=== PATIENT | female | born 1935 | race Caucasian/White ===

== ENCOUNTER 2019-07-26 11:21 | Emergency (ER) | payer MEDICARE, BC ==
--- NOTE | 2019-07-26 14:03 | EDM.PDOC ---
ED HPI GENERAL MEDICAL PROBLEM - General Chief Complaint: General Stated Complaint: fall Time Seen by Provider: 07/26/19 11:31 Source of Information: Reports: Patient History Limitations: Reports: No Limitations - History of Present Illness INITIAL COMMENTS - FREE TEXT/NARRATIVE: Patient fell while standing/conversing at chiropractor's office. No LOC. Did sustain laceration right upper lip. Early bruising around right chin/cheek and right hand and wrist. Denies other injuries. Did not hit scalp on any objects. Has history of intermittent lightheadedness every since she had inner ear infection a few years ago per daughter. This has led to similar falls previously. Able to ambulate. No change in vision. Jaw opens and closes well. Denies neck/chest/back/abdominal/pelvic pain. No limb pain except for discomfort in the bruised area of right hand/wrist. 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 No nausea/emesis. [place] like usual self before fall. No changes in meds recently. right wrist Pain Score (Numeric/FACES): 4 - Related Data Allergies Allergy/AdvReac Type Severity Reaction Status Date / Time No Known Allergies Allergy Verified 07/26/19 11:29 Home Meds: Home Meds Aspirin [Lite Coat Aspirin] 325 mg PO DAILY 11/03/13 [History] Ergocalciferol (Vitamin D2) [Vitamin D] 800 unit PO DAILY 11/03/13 [History] Fexofenadine HCl [Rosenda] 60 mg PO BID PRN 11/03/13 [History] Fluticasone Propionate [Flonase] 50 mcg NS DAILY 11/03/13 [History] Metoprolol Tartrate 25 mg PO BID 11/03/13 [History] Potassium Chloride [Klor-Con M10] 10 meq PO DAILY 11/03/13 [History] Sertraline [Zoloft] 100 mg PO QPM 11/03/13 [History] atorvaSTATin [Lipitor] 40 mg PO BEDTIME 11/03/13 [History] cloNIDine [Catapres] 0.1 mg PO BEDTIME 11/03/13 [History] hydroCHLOROthiazide [Hydrochlorothiazide] 25 mg PO DAILY 11/03/13 [History] Naproxen Sodium 220 mg PO DAILY PRN 02/12/15 [History] Dorzolamide/Timolol/Pf [Dorzolamide-Timolol 2%-0.5%] 1 each OP BEDTIME 07/26/19 [History] Lisinopril [Prinivil] 20 mg PO DAILY 07/26/19 [History] Rivaroxaban [Xarelto] 20 mg PO DAILY 07/26/19 [History] Past Medical History HEENT History: Reports: Glaucoma, Impaired Vision, Macular Degeneration Cardiovascular History: Reports: Blood Clots/VTE/DVT, High Cholesterol, Hypertension Musculoskeletal History: Reports: Osteoarthritis - Past Surgical History GI Surgical History: Reports: Appendectomy, Cholecystectomy Social & Family History - Tobacco Use Smoking Status *Q: Never Smoker Second Hand Smoke Exposure: No - Caffeine Use Caffeine Use: Reports: Coffee Other Caffeine Use: 2 cups in am - Recreational Drug Use Recreational Drug Use: No ED ROS GENERAL - Review of Systems Review Of Systems: ROS reveals no pertinent complaints other than HPI. ED EXAM, GENERAL - Physical Exam Exam: See Below Exam Limited By: No Limitations General Appearance: Alert, WD/WN, No Apparent Distress Eye Exam: Bilateral Eye: EOMI, PERRL Ears: Normal External Exam, Normal Canal Nose: No: Nasal Deformity, Nasal Swelling, Nasal Drainage Throat/Mouth: Normal Lips, Normal Teeth, Normal Voice, No Airway Compromise Head: Other (early bruising noted right cheek/right side of chin. No swelling. No signficant tenderness with palpation over face/scalp/neck) Neck: Normal Inspection, Supple, Non-Tender, Full Range of Motion. No: Tender Lateral, Tender Midline Respiratory/Chest: No Respiratory Distress, Lungs Clear, Normal Breath Sounds, No Accessory Muscle Use, Chest Non-Tender Cardiovascular: Regular Rate, Rhythm, Systolic Murmur Peripheral Pulses: 2+: Radial (L), Radial (R) GI/Abdominal: Normal Bowel Sounds, Soft, Non-Tender, No Distention (Female) Exam: Deferred Rectal (Female) Exam: Deferred Back Exam: No: CVA Tenderness (L), CVA Tenderness (R), Muscle Spasm, Paraspinal Tenderness, Vertebral Tenderness Extremities: Normal Capillary Refill, Other (bruising/tenderness noted medial right wrist and hand. Mild tenderness. Fingers/rest of hand and forearm non- tender. Able to move wrist well. ). No: Increased Warmth, Pallor, Redness Neurological: Alert, Oriented, Normal Cognition, No Motor/Sensory Deficits Psychiatric: Normal Affect, Normal Mood Skin Exam: Warm, Dry, Ecchymosis (right hand/wrist, right cheek and chin), Wound /Incision (laceration upper right lip) ED GENERAL MEDICAL PROCEDURES - Laceration/Wound Repair Right Mouth Lac/wound length in cm: 3 Appearance: Stellate, Clean Local Anesthesia - Lidocaine (Xylocaine): 1% Plain Local Anesthetic Volume: 2cc Skin Prep: Saline Exploration/Debridement/Repair: Wound Explored, In a Bloodless Field, Explored to Base, No Foreign Material Found, Multiple Flaps Aligned Suture Size: 3-0 # of Sutures: 6 Suture Type: Prolene, Interrupted Drain Placement: No Sterile Dressing Applied: None Tetanus Status Addressed: Other (unable to verify during visit. Later confirmed that it has been 10+year since last booster) Complications: No Course - Vital Signs Last Recorded V/S: Last Vital Signs Temp 36.0 C 07/26/19 11:22 Pulse 71 07/26/19 11:22 Resp 14 07/26/19 11:22 BP 151/88 H 07/26/19 11:22 Pulse Ox 99 07/26/19 11:22 - Orders/Labs/Meds Orders: Active Orders 24 hr Category Date Time Status EKG Documentation Completion [RC] ASDIRECTED Care 07/26/19 11:32 Active Hand 2V Rt [CR] Stat Exams 07/26/19 12:40 Ordered UA W/MICROSCOPIC [URIN] Stat Lab 07/26/19 11:32 Ordered Labs: Laboratory Tests 07/26/19 07/26/19 07/26/19 Range/Units 11:45 11:45 11:45 WBC 5.0 (4.0-10.2) K/uL RBC 4.05 (3.77-5.09) M/uL Hgb 12.3 (11.7-15.5) g/dL Hct 38.5 (34.0-46.0) % MCV 95.1 (84.0-98.0) fL MCH 30.4 (28.2-33.3) pg MCHC 31.9 (31.7-36.0) g/dL RDW 14.9 H (11.2-14.1) % Plt Count 155 (150-350) K/uL Neut % (Auto) 62.4 (45.0-80.0) % Lymph % (Auto) 21.9 (10.0-50.0) % [place] % (Auto) 12.1 (2.0-14.0) % Eos % (Auto) 2.6 (0.0-5.0) % Baso % (Auto) 1.0 (0.0-2.0) % Neut # (Auto) 3.10 (1.40-7.00) K/uL Lymph # (Auto) 1.09 (0.50-3.50) K/uL [place] # (Auto) 0.60 (0.00-1.00) K/uL Eos # (Auto) 0.13 (0.00-0.50) K/uL Baso # (Auto) 0.05 (0.00-0.20) K/uL PT 15.4 H (9.5-12.0) SEC INR 1.4 Sodium 143 (136-145) mmol/L Potassium 3.4 L (3.5-5.1) mmol/L Chloride 108 H (98-107) mmol/L Carbon Dioxide 27.9 (21.0-32.0) mmol/L BUN 36 H (7-18) mg/dL Creatinine 1.33 H (0.51-1.17) mg/dL Est Cr Clr Drug Dosing 28.95 mL/min Estimated GFR (MDRD) 38 mL/min Glucose 111 H (74-106) mg/dL Calcium 9.7 (8.5-10.1) mg/dL Magnesium 1.6 L (1.8-2.4) mg/dL Total Bilirubin 0.5 (0.2-1.0) mg/dL AST 22 (15-37) U/L ALT 22 (12-78) U/L Alkaline Phosphatase 77 (46-116) IU/L Total Protein 7.2 (6.4-8.2) g/dL Albumin 3.5 (3.4-5.0) g/dL Meds: Medications Discontinued Medications Generic Name Dose Route Start Last Admin Trade Name Freq PRN Reason Stop Dose Admin Lidocaine HCl 5 ml 07/26/19 13:31 Xylocaine-Mpf 1% INJECT 07/26/19 13:32 ONETIME ONE - Re-Assessments/Exams Free Text/Narrative Re-Assessment/Exam: Laceration repaired. Wound care reviewed. No obvious fracture of wrist/hand noted on xray. Precautions reviewed. Patient is anticoagulated but it is not felt that an acute CT of the head is indicated at this time. Low Mag noted. Patient said she normally takes magnesium but has been out of it for around a month. Advised to restart immediately and have level rechecked in one month. Patient uncertain of tetanus status. Unable to confirm that it has been over 10 years since last booster. Today's wound not considered a tetanus risk, however patient was called and advised to have tetanus updated with primary provider. Departure - Departure Time of Disposition: 14:01 Disposition: Home, Self-Care 01 Condition: Good Clinical Impression: Hypomagnesemia Fall Qualifiers: Encounter type: initial encounter Qualified Code(s): W19.XXXA - Unspecified fall, initial encounter Contusion of face Qualifiers: Encounter type: initial encounter Qualified Code(s): S00.83XA - Contusion of other part of head, initial encounter Lip laceration Qualifiers: Encounter type: initial encounter Qualified Code(s): S01.511A - Laceration without foreign body of lip, initial encounter Contusion of right hand Qualifiers: Encounter type: initial encounter Qualified Code(s): S60.221A - Contusion of right hand, initial encounter - Discharge Information *PRESCRIPTION DRUG MONITORING PROGRAM REVIEWED*: Not Applicable *COPY OF PRESCRIPTION DRUG MONITORING REPORT IN PATIENT MARTÍNEZ: Not Applicable Instructions: Laceration Care, Adult, [id number] Referrals: Ross Corado PA [Primary Care Provider] - Forms: ED Department Discharge Additional Instructions: Keep lip laceration area clean. Can soak area with normal saline/gauze several times a day to help keep area clean. Sutures out in one week. Observe for changes. Follow up as needed if new problems develop/worsen. Restart Magnesium supplements rangel - My Orders Last 24 Hours: My Active Orders 07/26/19 11:32 EKG Documentation Completion [RC] ASDIRECTED UA W/MICROSCOPIC [URIN] Stat 07/26/19 12:40 Hand 2V Rt [CR] Stat - Assessment/Plan Last 24 Hours: My Active Orders 07/26/19 11:32 EKG Documentation Completion [RC] ASDIRECTED UA W/MICROSCOPIC [URIN] Stat 07/26/19 12:40 Hand 2V Rt [CR] Stat
[2019-07-26 17:39] VITALS: BP 133/73; PULSE 58
== END 2019-07-26 14:20 | disposition home or self-care (01) ==
LOC: LL.ED 11:21
DX: S01.511A Laceration without foreign body of lip, initial encounter (principal); S60.221A Contusion of right hand, initial encounter; S60.211A Contusion of right wrist, initial encounter; E83.42 Hypomagnesemia; I10 Essential (primary) hypertension; M19.90 Unspecified osteoarthritis, unspecified site; Z90.49 Acquired absence of other specified parts of digestive tract; Z79.899 Other long term (current) drug therapy; Z79.82 Long term (current) use of aspirin; W19.XXXA Unspecified fall, initial encounter
CPT/HCPCS: 12013; 36415; 40830; 73120-RT; 80053; 83735; 85025; 85610; 93005; 99283; 99284-25; J2001

== ENCOUNTER 2019-08-18 08:36 | Emergency (ER) | payer MEDICARE, BC ==
[2019-08-18 09:01] VITALS: BP 130/61; PULSE 68
--- NOTE | 2019-08-18 09:25 | EDM.PDOC ---
ED HPI GENERAL MEDICAL PROBLEM - General Chief Complaint: General Stated Complaint: bleeding in mouth Time Seen by Provider: 08/18/19 09:05 Source of Information: Reports: Patient History Limitations: Reports: No Limitations - History of Present Illness INITIAL COMMENTS - FREE TEXT/NARRATIVE: Patient concerned due to bleeding gums in left upper tooth area. Started this morning. On day 3 of Cipro to treat UTI. Failed Macrobid. No other changes. Feels well otherwise. Also noted to be on Xarelto. - Related Data Allergies Allergy/AdvReac Type Severity Reaction Status Date / Time No Known Allergies Allergy Verified 08/18/19 08:37 Home Meds: Home Meds Ergocalciferol (Vitamin D2) [Vitamin D] 800 unit PO DAILY 11/03/13 [History] Fexofenadine HCl [Rosenda] 60 mg PO BID PRN 11/03/13 [History] Fluticasone Propionate [Flonase] 50 mcg NS DAILY 11/03/13 [History] Metoprolol Tartrate 25 mg PO BID 11/03/13 [History] Potassium Chloride [Klor-Con M10] 10 meq PO DAILY 11/03/13 [History] Sertraline [Zoloft] 100 mg PO QPM 11/03/13 [History] atorvaSTATin [Lipitor] 40 mg PO BEDTIME 11/03/13 [History] cloNIDine [Catapres] 0.1 mg PO BEDTIME 11/03/13 [History] hydroCHLOROthiazide [Hydrochlorothiazide] 25 mg PO DAILY 11/03/13 [History] Naproxen Sodium 220 mg PO DAILY PRN 02/12/15 [History] Lisinopril [Prinivil] 20 mg PO DAILY 07/26/19 [History] Rivaroxaban [Xarelto] 20 mg PO DAILY 07/26/19 [History] Calcium Carbonate [Tums Extra Strength] 1 tab PO BID 08/18/19 [History] Ciprofloxacin [Ciprofloxacin HCl] 250 mg PO BID 08/18/19 [History] Latanoprost/Pf [Latanoprost 0.005% Eye Drop] 1 drop EYEBOTH BEDTIME 08/18/19 [ History] Magnesium 250 mg PO DAILY 08/18/19 [History] Sodium Chloride [Deep Sea] 2 spray NASBOTH ASDIRECTED PRN 08/18/19 [History] Travoprost [Travatan Z] 1 drop EYEBOTH BEDTIME 08/18/19 [History] Past Medical History HEENT History: Reports: Glaucoma, Impaired Vision, Macular Degeneration Cardiovascular History: Reports: Blood Clots/VTE/DVT, High Cholesterol, Hypertension 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 ED EXAM, GENERAL - Physical Exam Exam: See Below Exam Limited By: No Limitations General Appearance: Alert, WD/WN, No Apparent Distress Eye Exam: Bilateral Eye: EOMI Nose: No: Nasal Deformity, Nasal Swelling, Nasal Drainage Throat/Mouth: Other (noted to have oozing of small amounts blood around gumline upper teeth on left) Head: Atraumatic, Normocephalic. No: Facial Swelling, Facial Tenderness, Sinus Tenderness Neck: Supple, Non-Tender Respiratory/Chest: No Respiratory Distress Extremities: Normal Capillary Refill Neurological: Alert, Oriented Psychiatric: Normal Affect, Normal Mood Skin Exam: Warm, Dry, Normal Color Course - Vital Signs Last Recorded V/S: Last Vital Signs Temp 36.0 C 08/18/19 08:36 Pulse 68 08/18/19 08:36 Resp 16 08/18/19 08:36 BP 130/61 08/18/19 08:36 Pulse Ox 97 08/18/19 08:36 - Re-Assessments/Exams Free Text/Narrative Re-Assessment/Exam: 08/18/19 09:48 Patient had recently performed labs that were reviewed. Calculated creatinine is 28. Review of [facility] shows that Xarelto is con Departure - Departure Time of Disposition: 09:25 Disposition: Home, Self-Care 01 Condition: Good Clinical Impression: Bleeding gums, Decreased creatinine clearance - Discharge Information *PRESCRIPTION DRUG MONITORING PROGRAM REVIEWED*: Not Applicable *COPY OF PRESCRIPTION DRUG MONITORING REPORT IN PATIENT MARTÍNEZ: Not Applicable Referrals: Ross Corado PA [Primary Care Provider] - Forms: ED Department Discharge Additional Instructions: As we discussed, we suspect that the combination of Cipro and Xarelto is causing your gums to bleed. You should hold your Xarelto until you are through with the Cipro. You also have a lower creatinine clearance. Looking at the guidelines, this particular combination of meds can lead to higher risk of side effects. Recommend that you get referral to anticoagulation clinic to be reviewed and have recommendations for best anticoagulation options for you. May stop Cipro if gum bleeding worsens.
== END 2019-08-18 09:40 | disposition home or self-care (01) ==
LOC: LL.ED 08:36
DX: K06.8 Other specified disorders of gingiva and edentulous alveolar ridge (principal); R94.4 Abnormal results of kidney function studies; H40.9 Unspecified glaucoma; E78.00 Pure hypercholesterolemia, unspecified; I10 Essential (primary) hypertension; Z79.01 Long term (current) use of anticoagulants; Z79.899 Other long term (current) drug therapy; Z86.718 Personal history of other venous thrombosis and embolism
CPT/HCPCS: 99282

== ENCOUNTER 2020-03-19 14:28 | Emergency (ER) | payer MEDICARE, BC ==
[2020-03-19] MEDS ORDERED: Sodium Chloride 0.9% 10 ML Syringe FLUSH PRN (14:38)
--- NOTE | 2020-03-19 14:38 | EDM.PDOC ---
ED HPI GENERAL MEDICAL PROBLEM - General Chief Complaint: General Stated Complaint: weakness, recent UTI Time Seen by Provider: 03/19/20 14:30 Source of Information: Reports: Patient, Family (DaughterKristin, by telephone) , Old Records ([facility] chart/EMR), Other ([facility] EMR) History Limitations: Reports: No Limitations - History of Present Illness INITIAL COMMENTS - FREE TEXT/NARRATIVE: The patient was brought to the emergency room via private automobile by her daughter, Kristin, and her son-in-law for evaluation of a 1-2 day history of nonspecific fatigue and weakness. She is a somewhat poor historian. The patient did see her regular provider, Ross Corado PA-C, at the [facility] in [place], yesterday and was diagnosed with a UTI and started on Levaquin. The patient denies any chest pain/pressure, heart flutter, dizziness, orthostasis, orthopnea, diaphoresis, paresthesias, recent decreased exercise tolerance, or any other anginal-type symptoms although some possible mild dyspnea with activity. Her main complaint today is severe progressive nonspecific generalized weakness with patient not being able to get off the toilet earlier this morning by herself and needed assistance from her son. No history of fall, injury, etc., however. No recent history of abdominal pain, heartburn, nausea, diarrhea, melena, gross hematochezia, or any food intolerance, including fatty foods, etc.. She denies any current gross hematuria, colic, or other UTI symptoms despite her recently diagnosed UTI as above. The patient also denies any recent fever, cough, wheezing, dyspnea, etc.. She denies any specific pain or discomfort. Onset: Gradual, Unknown/Unsure Onset Date: 03/18/20 Duration: Getting Worse Location: Reports: Generalized (Weakness) Quality: Reports: Same as Previous Episode, Other (No pain) Severity: Severe Improves with: Reports: None Worsens with: Reports: None Context: Reports: Other (As above). Denies: Sick Contact, Trauma Associated Symptoms: Reports: Shortness of Breath. 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 She did take her morning medications.) - Related Data Allergies Allergy/AdvReac Type Severity Reaction Status Date / Time No Known Allergies Allergy Verified 03/19/20 14:31 Home Meds: Home Meds Sertraline [Zoloft] 100 mg PO QPM 11/03/13 [History] atorvaSTATin [Lipitor] 40 mg PO BEDTIME 11/03/13 [History] cloNIDine [Catapres] 0.1 mg PO BEDTIME 11/03/13 [History] lisinopriL [Prinivil] 20 mg PO DAILY 07/26/19 [History] Calcium Carbonate [Tums Extra Strength] 1 tab PO BID PRN 08/18/19 [History] Latanoprost/Pf [Latanoprost 0.005% Eye Drop] 1 drop EYELF BEDTIME 08/18/19 [ History] Magnesium 250 mg PO DAILY 08/18/19 [History] Apixaban [Eliquis] 2.5 mg PO BID 03/19/20 [History] Cholecalciferol (Vitamin D3) [Vitamin D3] 800 unit PO DAILY 03/19/20 [History] Dorzolamide HCl/Timolol Maleat [Dorzolamide-Timolol Eye Drops] 1 drop EYELF BID 03/19/20 [History] Fluticasone Propionate [Flonase] 2 spray NASBOTH DAILY 03/19/20 [History] Levothyroxine 25 mcg PO DAILY 03/19/20 [History] Sodium Chloride [Deep Sea] 2 sprays NASBOTH ASDIRECTED PRN 03/19/20 [History] Travoprost [Travatan Z] 1 drop EYELF BEDTIME 03/19/20 [History] levoFLOXacin [Levaquin] 500 mg PO DAILY 03/19/20 [History] Past Medical History HEENT History: Reports: Allergic Rhinitis, Cataract, Glaucoma, Hard of Hearing, Impaired Vision, Macular Degeneration, Sinusitis, Other (See Below). 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 Cardiovascular History: Reports: Arrhythmia, Blood Clots/VTE/DVT, CAD, Cardiomyopathy, Heart Failure, High Cholesterol, Hypertension, AZ, PVD, Other ( See Below). 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 Syncopal episode during chiropractic treatment in 2019. Mild carotid occlusive disease and peripheral vascular disease. History of intermittent bradycardia with intermittent Mobitz type II block with planned pacemaker placement in April 2020. Incomplete right bundle branch block, PACs, PVCs, first-degree AV block, sinus arrhythmia and mild coronary artery disease with 40% stenosis of the right coronary artery by heart catheterization in 2002 as below. Apparent previous history of a non- STEMI without other cardiac procedures. Borderline occasional CHF with small pleural effusions and known grade 1 diastolic dysfunction. Right ventricular enlargement. Respiratory History: Reports: Bronchitis, Recurrent, COPD, Intubation, Previous , PE, Pneumonia, Recurrent, Pulmonary Fibrosis, Other (See Below). Denies: Asthma, Intubation, Difficult, Pneumothorax, TB Other Respiratory History: Large right PE above. Gastrointestinal History: Reports: Cholelithiasis, Colon Polyp, Diverticulosis, Gastritis, GERD, Hepatitis, Hiatal Hernia, PUD, Other (See Below) Other Gastrointestinal History: History of small colonic polyps of unknown type however evidence of mild colitis per biopsies at time of colonoscopy on . Moderate diverticulosis extending from the distal transverse colon to the sigmoid region. Genitourinary History: Reports: Chronic Renal Insuffiency, Urinary Incontinence , UTI, Recurrent. 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 Surgical menopause secondary to dysfunctional uterine bleeding. Benign vaginal polyp on 04/20/2000. Musculoskeletal History: Reports: Arthritis, Back Pain, Chronic, Fracture, Neck Pain, Chronic, Osteoarthritis, Osteoporosis Other Musculoskeletal History: Scoliosis. Left lateral malleolar fracture on 07/01. 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 Psychiatric History: Reports: Anxiety, Depression Endocrine/Metabolic History: Reports: Hypokalemia, Hypomagnesemia, Hypothyroidism, Other (See Below) Other Endocrine/Metabolic History: Angel's disease. Previous hyperglycemia. Hematologic History: Reports: Blood Transfusion(s), Other (See Below) Other Hematologic History: Chronic leukopenia. Blood transfusion at time of hysterectomy. Dermatologic History: Reports: Other (See Below) Other Dermatologic History: Facial actinic keratosis diagnosed on 01/05/94. - Infectious Disease History Infectious Disease History: Reports: Hepatitis A (Probable hepatitis A at age 10.) - Past Surgical History HEENT Surgical History: Reports: Cataract Surgery, Eye Surgery, Laser Surgery, Other (See Below) Other HEENT Surgeries/Procedures: Bilateral laser treatments of the eye in about June 1999. Right cataract extraction on 01/15/02 with left cataract extraction on . YAG laser posterior capsule treatment bilaterally on 13/04. Right eye shunt placement initially on 01/08/20 with revision on 01/22/20 secondary to her glaucoma. GI Surgical History: Reports: Appendectomy, Cholecystectomy, Colonoscopy, EGD, Other (See Below) Other GI Surgeries/Procedures: Last EGD and colonoscopy on 11/01/07 with similar previous evaluations on 07/10/03 with polypectomies 2 in 2002 as above. Additional colonoscopy on 05/31/04. Incidental appendectomy at time of hysterectomy as below at age 33. Female Surgical History: Reports: Hysterectomy, Salpingo-Oophorectomy, Other (See Below) Other Female Surgeries/Procedures: Partial hysterectomy with unilateral salpingo-oophorectomy and concomitant incidental appendectomy. Dysfunctional uterine bleeding at about age 33. Dermatological Surgical History: Reports: Other (See Below) Other Dermatological Surgeries/Procedures: Excision of actinic keratosis from the right facial region on 01/05/94. - Past Imaging History Past Imaging History: Reports: Angiography (Pulmonary angiogram with thrombectomy on 11/08/13 and 11/09/13 as above. Heart Catheterization on 06/16/03 with findings as above.), Cardiac Echo (Last on 08/06/19 with ejection fraction of 5560 percent with findings as above. Previous evaluations on 11/08/13 and 09/06/99.), Carotid US (Multiple previous evaluations last on 08/06/19.), CAT Scan ( Positive CTA of the chest on 11/08/[address] of the head on 03/15/99.), DEXA Scan (Multiple previous DEXA scans last on 05/10/11.), Holter Monitor (Last 48 hour Holter monitor study on 11/27/19 with results as above and previous evaluation on 09/01/99.), Mammogram (Last on 05/22/14.), PFT (07/01/03), Stress Testing (Dobutamine Cardiolite stress test on 06/08/07 on 06/08/07 with ejection fraction of 71%. Cardiolite stress test negative on 05/22/03.), Ultrasound ( Abdominal aortic ultrasound on 05/05/06.), Venous Doppler (Lower extremities on 08/12 positive for right popliteal and peroneal DVT.) Social & Family History - Family History Cardiac: Reports: Bypass, CAD, Hypertension, AZ, Other (See Below) Other Cardiac Family History: Brothers 2 with AZ and CABG is in their 60s with one of these brothers dying from an AZ at age 82. Brother with CHF and renal failure. Brother with possible cardiac aneurysm. Son with fatal AZ at age 52 secondary to severe multivessel disease. Brother with hyperlipidemia. Respiratory: Reports: Asthma, Other (See Below) Other Respiratory Family Hisory: Maternal aunt with asthma. : Reports: Renal Disease/Insufficiency, Other (See Below) Other Family History: Brother with renal failure as above. Musculoskeletal: Reports: Arthritis, Osteoarthritis, Other (See Below) Other Musculoskeletal Family History: Osteoarthritis in father and brother. Neurological: Reports: Alzheimers Disease, CVA, Dementia, Parkinson's, Other ( See Below) Other Neurological Family History: Brother with embolic CVA in his 60s. Mother with possible fatal CVA in her 70s. Brother with organic brain syndrome and Parkinson's disease. Endocrine/Metabolic: Reports: Diabetes, type II, IDDM, Other (See Below) Other Endocrine/Metabolic Family History: Brother with IDDM. Oncologic: Reports: Leukemia, Renal, Other (See Below) Other Oncologic Family History: Maternal aunts 2 with fatal unknown type of cancer in their 70s. Brother with renal cancer fatal in his 60s. Another brother with fatal leukemia at age 79. 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 ED EXAM, GENERAL - Physical Exam Exam: See Below Exam Limited By: No Limitations General Appearance: Alert, WD/WN, No Apparent Distress Eye Exam: Right Eye: Conjunctival Injection (Mild right lateral subconjunctival hemorrhage), Left Eye: Vision Changes (Near left eye blindness by history with patient wearing glasses), Bilateral Eye: EOMI, PERRL Ears: Normal External Exam, Normal Canal, Normal TMs, Hearing Loss (Mild bilateral presbycusis) Nose: Normal Inspection, Normal Mucosa, No Blood Throat/Mouth: Normal Inspection, Normal Lips, Normal Teeth, Normal Gums, Normal Oropharynx, Normal Voice, No Airway Compromise. No: Dysphagia, Perioral Cyanosis Head: Atraumatic, Normocephalic. No: Facial Swelling, Facial Tenderness, Sinus Tenderness Neck: Supple, Non-Tender, Full Range of Motion, Carotid Bruit (Mild bilateral carotid bruits). No: Lymphadenopathy (L), Lymphadenopathy (R), Thyromegaly Respiratory/Chest: No Respiratory Distress, No Accessory Muscle Use, Chest Non- Tender, Rales (Mild bilateral basilar rales). No: Pleural Rub, Retractions Cardiovascular: Normal Peripheral Pulses, Regular Rate, Rhythm, No Edema, No Gallop, No JVD, No Murmur, No Rub. No: Gallop/S3, Gallop/S4, Extra Beats (At time of exam), Friction Rub Peripheral Pulses: 2+: Radial (L), Radial (R), Dorsalis Pedis (L), Dorsalis Pedis (R) GI/Abdominal: Normal Bowel Sounds, Soft, Non-Tender, No Organomegaly, No Distention, No Abnormal Bruit, No Mass, Pelvis Stable. No: Guarding (Female) Exam: Deferred Rectal (Female) Exam: Deferred Back Exam: Full Range of Motion, CVA Tenderness (L), CVA Tenderness (R), Other ( Scoliosismild). No: Muscle Spasm, Paraspinal Tenderness, Vertebral Tenderness Extremities: Normal Inspection, Normal Range of Motion, Non-Tender, No Pedal Edema, Normal Capillary Refill. No: Alysa's Sign Neurological: Alert, Oriented, CN II-XII Intact, Normal Cognition, Normal Gait, Normal Reflexes (Negative Babinski's), No Motor/Sensory Deficits, Other ( Moderate nonspecific generalized weakness) Psychiatric: Normal Affect, Normal Mood Skin Exam: Warm, Dry, Intact, Normal Color, No Rash. No: Diaphoretic, Ecchymosis, Petechiae, Wound/Incision Lymphatic: No Adenopathy EKG INTERPRETATION EKG Date: 03/19/20 Time: 15:43 Rhythm: Other (PVCs) Rate (Beats/Min): 66 [place]: Normal (Left) P-Wave: Present (Small P waves noted, mildly biphasic) QRS: Normal (0.07 seconds) ST-T: Normal QT: Normal VA/PQ Interval: 0.25 seconds representing a first degree AV block with extreme poor R-wave progression in the anterior leads. Comparison: No Change (07/26/19) EKG Interpretation Comments: 1. No acute ischemic changes 2. First-degree AV block 3. PVCs Course - Vital Signs Last Recorded V/S: Last Vital Signs Temp 36.1 C 03/19/20 16:00 Pulse 81 03/19/20 16:29 Resp 20 03/19/20 16:29 BP 198/115 H 03/19/20 16:50 Pulse Ox 94 L 03/19/20 16:29 Vital Signs - 24 hr 03/19/20 03/19/20 03/19/20 14:30 14:35 14:39 Temperature [ 36.6 C 36.2 C Temporal] Pulse, 80 74 Peripheral [ Right Pulse Oximetry] Respiratory 20 20 Rate Blood Pressure Blood Pressure 192/93 H 183/87 H [Left Upper Arm ] O2 Sat by Pulse 95 93 L Oximetry O2 Sat by Pulse 95 Oximetry [Room Air] 03/19/20 03/19/20 03/19/20 14:54 15:08 15:23 Temperature [ 36.0 C L Temporal] Pulse, 68 67 76 Peripheral [ Right Pulse Oximetry] Respiratory 20 18 20 Rate Blood Pressure Blood Pressure 184/80 H 188/81 H 209/81 H [Left Upper Arm ] O2 Sat by Pulse 94 L 95 95 Oximetry O2 Sat by Pulse Oximetry [Room Air] 03/19/20 03/19/20 03/19/20 15:48 16:00 16:05 Temperature [ 36.1 C Temporal] Pulse, 64 69 Peripheral [ Right Pulse Oximetry] Respiratory 18 20 Rate Blood Pressure 229/87 H Blood Pressure 190/69 H 229/87 H [Left Upper Arm ] O2 Sat by Pulse 95 95 Oximetry O2 Sat by Pulse Oximetry [Room Air] 03/19/20 03/19/20 03/19/20 16:12 16:15 16:19 Temperature [ Temporal] Pulse, 82 110 H Peripheral [ Right Pulse Oximetry] Respiratory 20 22 H Rate Blood Pressure 189/84 H Blood Pressure 193/89 H 189/96 H [Left Upper Arm ] O2 Sat by Pulse 95 94 L Oximetry O2 Sat by Pulse Oximetry [Room Air] 03/19/20 03/19/20 16:29 16:50 Temperature [ Temporal] Pulse, 81 Peripheral [ Right Pulse Oximetry] Respiratory 20 Rate Blood Pressure 198/115 H Blood Pressure 182/84 H [Left Upper Arm ] O2 Sat by Pulse 94 L Oximetry O2 Sat by Pulse Oximetry [Room Air] - Orders/Labs/Meds Orders: Active Orders 24 hr Category Date Time Status Cardiac Monitoring [RC] CONTINUOUS Care 03/19/20 14:39 Active EKG Documentation Completion [RC] ASDIRECTED Care 03/19/20 15:42 Active Oxygen Therapy, ED [RC] PRN Care 03/19/20 14:39 Active Peripheral IV Care [RC] . DIRECTED Care 03/19/20 14:39 Active Pulse Oximetry [RC] CONTINUOUS Care 03/19/20 14:39 Active Up With Assistance [RC] ASDIRECTED Care 03/19/20 14:39 Active Nothing Per Oral Diet [DIET] Diet 03/19/20 Breakfast Active Chest 1V Frontal [CR] Stat Exams 03/19/20 14:55 Taken Chest 2V [CR] Stat Exams 03/19/20 14:39 Stop Req Chest 2V [CR] Stat Exams 03/19/20 14:39 Stop Req CULTURE URINE [RM] Routine Lab 03/19/20 15:33 Received Nitroglycerin [Nitrostat] Med 03/19/20 15:59 Stat 0.4 mg SL ONETIME STA Nitroglycerin [Nitrostat] Med 03/19/20 16:43 Stat 0.4 mg SL ONETIME STA Nitroglycerin [Nitrostat] Med 03/19/20 16:11 Active 0.4 mg SL Q5M PRN Sodium Chloride 0.9% [Saline Flush] Med 03/19/20 14:38 Active 10 ml FLUSH ASDIRECTED PRN Obtain Past Medical Record [OM.PC] Stat Oth 03/19/20 14:39 Active Peripheral IV Insertion Adult [OM.PC] Stat Oth 03/19/20 14:39 Ordered Resuscitation Status Routine Resus Stat 03/19/20 14:38 Ordered Medication Orders Nitroglycerin (Nitrostat) 0.4 mg SL ONETIME STA Stop: 03/20/20 16:00 Last Admin: 03/19/20 16:05 Dose: 0.4 mg Nitroglycerin (Nitrostat) 0.4 mg SL Q5M PRN PRN Reason: Chest Pain Stop: 03/20/20 16:11 Last Admin: 03/19/20 16:15 Dose: 0.4 mg Nitroglycerin (Nitrostat) 0.4 mg SL ONETIME STA Stop: 03/20/20 16:44 Last Admin: 03/19/20 16:50 Dose: 0.4 mg Sodium Chloride (Saline Flush) 10 ml FLUSH ASDIRECTED PRN PRN Reason: Keep Vein Open Labs: Laboratory Tests 03/19/20 03/19/20 03/19/20 Range/Units 14:49 14:49 14:49 WBC 5.5 (4.0-10.2) K/uL RBC 4.14 (3.77-5.09) M/uL Hgb 12.4 (11.7-15.5) g/dL Hct 38.5 (34.0-46.0) % MCV 93.0 (84.0-98.0) fL MCH 30.0 (28.2-33.3) pg MCHC 32.2 (31.7-36.0) g/dL RDW 14.8 H (11.2-14.1) % Plt Count 145 L (150-350) K/uL Neut % (Auto) 60.7 (45.0-80.0) % Lymph % (Auto) 23.8 (10.0-50.0) % [place] % (Auto) 14.4 H (2.0-14.0) % Eos % (Auto) 0.9 (0.0-5.0) % Baso % (Auto) 0.2 (0.0-2.0) % Neut # (Auto) 3.34 (1.40-7.00) K/uL Lymph # (Auto) 1.31 (0.50-3.50) K/uL [place] # (Auto) 0.79 (0.00-1.00) K/uL Eos # (Auto) 0.05 (0.00-0.50) K/uL Baso # (Auto) 0.01 (0.00-0.20) K/uL PT 12.0 (9.5-12.0) SEC INR 1.2 APTT 27.6 (24.5-32.8) SEC D-Dimer, Quantitative (0-400) ng/mL Sodium 144 (136-145) mmol/L Potassium 2.4 L* (3.5-5.1) mmol/L Chloride 105 (98-107) mmol/L Carbon Dioxide 28.7 (21.0-32.0) mmol/L BUN 16 (7-18) mg/dL Creatinine 0.92 (0.51-1.17) mg/dL Est Cr Clr Drug Dosing 43.47 mL/min Estimated GFR (MDRD) 58 mL/min Glucose 91 (74-106) mg/dL Lactic Acid (0.4-2.0) mmol/L Calcium 9.2 (8.5-10.1) mg/dL Magnesium 1.2 L (1.8-2.4) mg/dL Total Bilirubin 0.8 (0.2-1.0) mg/dL AST 24 (15-37) U/L ALT 16 (12-78) U/L Alkaline Phosphatase 90 (46-116) IU/L Creatine Kinase 54 (26-308) U/L Creatine Kinase Index 1.7 (0.0-2.5) % CK-MB (CK-2) 0.90 (0.00-3.60) ng/mL Troponin I 0.264 H* (0.000-0.056) ng/mL NT-Pro-B Natriuret Pep 1325 H (0-125) pg/mL Total Protein 6.3 L (6.4-8.2) g/dL Albumin 3.2 L (3.4-5.0) g/dL TSH, Ultra Sensitive 2.379 (0.358-3.740) mIU/mL Specimen Type Urine Color Urine Appearance Urine pH (5.0-9.0) Ur Specific [place] (1.005-1.030) Urine Protein (NEGATIVE) mg/dL Urine Glucose (UA) (NEGATIVE) mg/dL Urine Ketones (NEGATIVE) mg/dL Urine Occult Blood (NEGATIVE) Urine Nitrite (NEGATIVE) Urine Bilirubin (NEGATIVE) Urine Urobilinogen (0.2-1.0) E.U./dL Ur Leukocyte Esterase (NEGATIVE) Urine RBC /HPF Urine WBC /HPF Ur Epithelial Cells /LPF Urine Bacteria (NONE TO FEW) /HPF Urinalysis Comment 03/19/20 03/19/20 03/19/20 Range/Units 14:49 14:49 15:33 WBC (4.0-10.2) K/uL RBC (3.77-5.09) M/uL Hgb (11.7-15.5) g/dL Hct (34.0-46.0) % MCV (84.0-98.0) fL MCH (28.2-33.3) pg MCHC (31.7-36.0) g/dL RDW (11.2-14.1) % Plt Count (150-350) K/uL Neut % (Auto) (45.0-80.0) % Lymph % (Auto) (10.0-50.0) % [place] % (Auto) (2.0-14.0) % Eos % (Auto) (0.0-5.0) % Baso % (Auto) (0.0-2.0) % Neut # (Auto) (1.40-7.00) K/uL Lymph # (Auto) (0.50-3.50) K/uL [place] # (Auto) (0.00-1.00) K/uL Eos # (Auto) (0.00-0.50) K/uL Baso # (Auto) (0.00-0.20) K/uL PT (9.5-12.0) SEC INR APTT (24.5-32.8) SEC D-Dimer, Quantitative < 100 (0-400) ng/mL Sodium (136-145) mmol/L Potassium (3.5-5.1) mmol/L Chloride (98-107) mmol/L Carbon Dioxide (21.0-32.0) mmol/L BUN (7-18) mg/dL Creatinine (0.51-1.17) mg/dL Est Cr Clr Drug Dosing mL/min Estimated GFR (MDRD) mL/min Glucose (74-106) mg/dL Lactic Acid 1.4 (0.4-2.0) mmol/L Calcium (8.5-10.1) mg/dL Magnesium (1.8-2.4) mg/dL Total Bilirubin (0.2-1.0) mg/dL AST (15-37) U/L ALT (12-78) U/L Alkaline Phosphatase (46-116) IU/L Creatine Kinase (26-308) U/L Creatine Kinase Index (0.0-2.5) % CK-MB (CK-2) (0.00-3.60) ng/mL Troponin I (0.000-0.056) ng/mL NT-Pro-B Natriuret Pep (0-125) pg/mL Total Protein (6.4-8.2) g/dL Albumin (3.4-5.0) g/dL TSH, Ultra Sensitive (0.358-3.740) mIU/mL Specimen Type [place] Urine Color Yellow Urine Appearance Clear Urine pH 7.0 (5.0-9.0) Ur Specific [place] 1.025 (1.005-1.030) Urine Protein Trace H (NEGATIVE) mg/dL Urine Glucose (UA) Negative (NEGATIVE) mg/dL Urine Ketones Negative (NEGATIVE) mg/dL Urine Occult Blood Moderate H (NEGATIVE) Urine Nitrite Negative (NEGATIVE) Urine Bilirubin Small H (NEGATIVE) Urine Urobilinogen 0.2 (0.2-1.0) E.U./dL Ur Leukocyte Esterase Trace H (NEGATIVE) Urine RBC 0-5 /HPF Urine WBC 5-10 H /HPF Ur Epithelial Cells Few /LPF Urine Bacteria Moderate H (NONE TO FEW) /HPF Urinalysis Comment Urine specimen also set up for culture and sensitivity. Meds: Medications Generic Name Dose Route Start Last Admin Trade Name Freq PRN Reason Stop Dose Admin Nitroglycerin 0.4 mg 03/19/20 15:59 03/19/20 16:05 Nitrostat SL 03/20/20 16:00 0.4 mg ONETIME STA Administration Nitroglycerin 0.4 mg 03/19/20 16:11 03/19/20 16:15 Nitrostat SL 03/20/20 16:11 0.4 mg Q5M PRN Administration Chest Pain Nitroglycerin 0.4 mg 03/19/20 16:43 03/19/20 16:50 Nitrostat SL 03/20/20 16:44 0.4 mg ONETIME STA Administration Sodium Chloride 10 ml 03/19/20 14:38 Saline Flush FLUSH ASDIRECTED PRN Keep Vein Open Discontinued Medications Generic Name Dose Route Start Last Admin Trade Name Freq PRN Reason Stop Dose Admin Famotidine 40 mg 03/19/20 15:49 03/19/20 16:03 Pepcid IVPUSH 03/19/20 15:50 40 mg ONETIME ONE Administration Hydralazine HCl Confirm 03/19/20 17:09 Apresoline Administered 03/19/20 17:10 Dose 20 mg .ROUTE .STK-MED ONE Magnesium Sulfate 4 gm/ Premix 100 mls @ 200 mls/hr 03/19/20 16:11 03/19/20 16:25 IV 03/19/20 16:40 200 mls/hr ONETIME ONE Administration Nitroglycerin 0.5 gm 03/19/20 15:52 03/19/20 16:03 Nitro-Bid 2% TOP 03/19/20 15:53 0.5 gm ONETIME ONE Administration Potassium Chloride 40 meq 03/19/20 16:11 03/19/20 16:15 Klor-Con M20 PO 03/19/20 16:12 40 meq ONETIME ONE Administration - Radiology Interpretation Free Text/Narrative:: awake overnight monitor shows normal sinus rhythm with heart rate in the 60s to 80s with only very occasional PACs and PVCs. Chest x-ray, portable, shows moderate COPD and pulmonary fibrotic changes with an additional new 1 cm in diameter possible right lower lobe pulmonary nodule of unknown character. No pneumothorax, pulmonary infiltrates, cardiomegaly, CHF , etc.. Mild aortic valve calcification. Departure - Departure Time of Disposition: 17:25 Disposition: DC/Tfer to Acute Hospital 02 Condition: Fair Clinical Impression: CHF (congestive heart failure), Hypertension, Hypokalemia, Hypomagnesemia, UTI (urinary tract infection), Peptic reflux disease, Pulmonary nodule, Renal insufficiency, Hypoalbuminemia, Coronary artery disease, Arrhythmia, COPD ( chronic obstructive pulmonary disease), Tobacco abuse counseling - Discharge Information *PRESCRIPTION DRUG MONITORING PROGRAM REVIEWED*: Not Applicable *COPY OF PRESCRIPTION DRUG MONITORING REPORT IN PATIENT MARTÍNEZ: Not Applicable Referrals: Ross Corado PA [Primary Care Provider] - Forms: ED Department Discharge, Interfacility Transfer EMTALA Sepsis Event Note - Focused Exam Vital Signs: Vital Signs Temp Pulse Resp BP BP Pulse Ox Pulse Ox 03/19/20 16:50 198/115 H 03/19/20 16:29 81 20 182/84 H 94 L 03/19/20 16:19 110 H 22 H 189/96 H 94 L 03/19/20 16:15 189/84 H 03/19/20 16:12 82 20 193/89 H 95 03/19/20 16:05 229/87 H 03/19/20 16:00 36.1 C 69 20 229/87 H 95 03/19/20 15:48 64 18 190/69 H 95 03/19/20 15:23 76 20 209/81 H 95 03/19/20 15:08 36.0 C L 67 18 188/81 H 95 03/19/20 14:54 68 20 184/80 H 94 L 03/19/20 14:39 95 03/19/20 14:35 36.2 C 74 20 183/87 H 93 L 03/19/20 14:30 36.6 C 80 20 192/93 H 95 Date Exam was Performed: 03/19/20 Time Exam was Performed: 17:45 - Problem List & Annotations (1) CHF (congestive heart failure) SNOMED Code(s): 57865092 Code(s): I50.9 - HEART FAILURE, UNSPECIFIED Status: Acute Priority: High Current Visit: Yes Annotation/Comment:: History of previous borderline CHF and grade 1 diastolic dysfunction with known mild to moderate right ventricular enlargement by previous echocardiograms as above. Note moderate troponin I elevation with no chest pain or anginal type symptoms. No ASA or Brilinta were given secondary to patient's current Eliquis therapy with chest pain protocol not initiated initially secondary to absence of anginal complaints. IV Lasix therapy was not initiated secondary to her significant hypokalemia with patient given 40 mEq of potassium chloride orally in the emergency room. Note additional significant hypomagnesemia as below. No EKG changes consistent with acute [place], although troponin I level is higher than we would expect with this degree of CHF, which is only mild by clinical exam and today's chest x-ray. Known previous coronary artery disease as above with no known previous cardiac procedures. Initial telephone consultation at 15:50 hours with the patient's daughter, Kristin, verifying the patient's FULL CODE STATUS and desire for further treatment and workup. Subsequent telephone consultation at 15:[address] Camargo, emergency room physician at [facility], who feels this patient should be a direct admission. Subsequent telephone consultation at 16:[address] Valencia, hospitalist at [facility], who does accept the patient for direct admission and further treatment and evaluation, with no further treatment recommendations given. Ambulance transfer by means of skin piler accompaniment. Her blood pressures continued to be somewhat elevated prior to transfer, however stable vital signs and physical exam at time of transfer. Note initiation of nitro-paste therapy and sublingual nitroglycerin 3 for better blood pressure control and as cardiac prophylaxis. Qualifiers: Heart failure type: combined systolic and diastolic Heart failure chronicity: acute on chronic Qualified Code(s): I50.43 - Acute on chronic combined systolic (congestive) and diastolic (congestive) heart failure (2) Coronary artery disease SNOMED Code(s): 47570823 Code(s): I25.10 - ATHSCL HEART DISEASE OF [place] CORONARY ARTERY W/O ANG PCTRS Status: Chronic Priority: High Current Visit: Yes Annotation/ Comment:: As above. Possible threatening [place]. Cardiology consultation, standard rule out [place] orders, etc. by accepting providers. Qualifiers: Coronary Disease-Associated Artery/Lesion type: [place] artery [place] vs. transplanted heart: [place] heart Associated angina: without angina Qualified Code(s): I25.10 - Atherosclerotic heart disease of [place] coronary artery without angina pectoris (3) Hypertension SNOMED Code(s): 49593895 Code(s): I10 - ESSENTIAL (PRIMARY) HYPERTENSION Status: Chronic Priority : High Current Visit: Yes Annotation/Comment:: As above. Patient denies any medication noncompliance. Note sublingual nitroglycerin, nitro paste therapy, and IV magnesium infusion initiated, which should be beneficial for her blood pressures. The paramedics were provided a total of 20 mg of hydralazine IV, which should be in 10 mg aliquots, if her hypertension worsens. 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 No neurological deficits during entire emergency room care in spite of the patient's distant history of previous CVA. Qualifiers: Hypertension type: essential hypertension Qualified Code(s): I10 - Essential (primary) hypertension (4) UTI (urinary tract infection) SNOMED Code(s): 99810750 Code(s): N39.0 - URINARY TRACT INFECTION, SITE NOT SPECIFIED Status: Chronic Priority: Medium Current Visit: Yes Onset Date: ~03/18/20 Annotation/Comment:: Current UTI diagnosed by primary provider yesterday as above. He did order an urine culture, which is still pending per review of records from [facility]. Note current Levaquin therapy. Additional QuikCath UA with culture and sensitivity were collected today. Qualifiers: Urinary tract infection type: acute cystitis Hematuria presence: without hematuria Qualified Code(s): N30.00 - Acute cystitis without hematuria (5) Hypomagnesemia SNOMED Code(s): 485479010 Code(s): E83.42 - HYPOMAGNESEMIA Status: Acute Priority: High Current Visit: Yes Onset Date: 03/19/20 Annotation/Comment:: History of hypomagnesia in the past with severe hypomagnesemia today. IV magnesium sulfate infusion initiated in the emergency room both for treatment of her decreased magnesium level and also for better blood pressure control. Transfusion was continued in route at time of transfer. (6) Hypokalemia SNOMED Code(s): 92001043 Code(s): E87.6 - HYPOKALEMIA Status: Acute Priority: High Current Visit : Yes Onset Date: 03/19/20 Annotation/Comment:: As above (7) Peptic reflux disease SNOMED Code(s): 025678742 Code(s): K21.9 - GASTRO-ESOPHAGEAL REFLUX DISEASE WITHOUT ESOPHAGITIS Status: Chronic Priority: Medium Current Visit: Yes Annotation/Comment:: As above. No GI complaints. High-dose IV Pepcid was given as GI prophylaxis. (8) Pulmonary nodule SNOMED Code(s): 119269414 Code(s): R91.1 - SOLITARY PULMONARY NODULE Status: Acute Priority: High Current Visit: Yes Onset Date: 03/19/20 Annotation/Comment:: Note newly diagnosed right lower lobe pulmonary nodule. Consider CT of the chest with contrast with patient having a distant history of a PE as above. Note negative d -dimer today. No previous tobacco use history, however current secondhand tobacco smoke exposure. (9) Renal insufficiency SNOMED Code(s): 123706385, 940245197 Code(s): N28.9 - DISORDER OF KIDNEY AND URETER, UNSPECIFIED Status: Chronic Priority: Medium Current Visit: Yes Annotation/Comment:: Continue to observe closely by accepting providers especially IV Lasix was initiated. (10) Hypoalbuminemia SNOMED Code(s): 963540847 Code(s): E88.09 - OTH DISORDERS OF PLASMA-PROTEIN METABOLISM, NEC Status: Acute Priority: Medium Current Visit: Yes Onset Date: 03/19/20 Annotation/Comment:: Observe for now. (11) Arrhythmia SNOMED Code(s): 974717466 Code(s): I49.9 - CARDIAC ARRHYTHMIA, UNSPECIFIED Status: Acute Priority: High Current Visit: Yes Annotation/Comment:: Note history of [place] type II second-degree AV block and PACs, PVCs, etc. as above. Observe closely by accepting providers with pacemaker apparently scheduled to be placed in April by patient history Qualifiers: Arrhythmia type: other cardiac arrhythmia Qualified Code(s): I49.8 - Other specified cardiac arrhythmias (12) COPD (chronic obstructive pulmonary disease) SNOMED Code(s): 76345570 Code(s): J44.9 - CHRONIC OBSTRUCTIVE PULMONARY DISEASE, UNSPECIFIED Status : Chronic Priority: Medium Current Visit: Yes Annotation/Comment:: No recent fever or bronchitic type symptoms. Qualifiers: COPD type: emphysema Emphysema type: panlobular Qualified Code(s): J43.1 - Panlobular emphysema (13) Tobacco abuse counseling SNOMED Code(s): 658861772, 475575539, 018861503 Code(s): Z71.6 - TOBACCO ABUSE COUNSELING Status: Chronic Priority: Medium Current Visit: Yes Annotation/Comment:: Tobacco exposure from her son. Tobacco cessation information to be provided by accepting providers at discharge. - Problem List Review Problem List Initiated/Reviewed/Updated: Yes - My Orders Last 24 Hours: My Active Orders 03/19/20 14:38 Sodium Chloride 0.9% [Saline Flush] 10 ml FLUSH ASDIRECTED PRN Resuscitation Status Routine 03/19/20 14:39 Cardiac Monitoring [RC] CONTINUOUS Oxygen Therapy, ED [RC] PRN Peripheral IV Care [RC] . DIRECTED Pulse Oximetry [RC] CONTINUOUS Up With Assistance [RC] ASDIRECTED Chest 2V [CR] Stat Chest 2V [CR] Stat Obtain Past Medical Record [OM.PC] Stat Peripheral IV Insertion Adult [OM.PC] Stat 03/19/20 14:55 Chest 1V Frontal [CR] Stat 03/19/20 15:33 CULTURE URINE [RM] Routine 03/19/20 15:42 EKG Documentation Completion [RC] ASDIRECTED 03/19/20 15:59 Nitroglycerin [Nitrostat] 0.4 mg SL ONETIME STA 03/19/20 16:11 Nitroglycerin [Nitrostat] 0.4 mg SL Q5M PRN 03/19/20 16:43 Nitroglycerin [Nitrostat] 0.4 mg SL ONETIME STA 03/19/20 Breakfast Nothing Per Oral Diet [DIET] - Assessment/Plan Last 24 Hours: My Active Orders 03/19/20 14:38 Sodium Chloride 0.9% [Saline Flush] 10 ml FLUSH ASDIRECTED PRN Resuscitation Status Routine 03/19/20 14:39 Cardiac Monitoring [RC] CONTINUOUS Oxygen Therapy, ED [RC] PRN Peripheral IV Care [RC] . DIRECTED Pulse Oximetry [RC] CONTINUOUS Up With Assistance [RC] ASDIRECTED Chest 2V [CR] Stat Chest 2V [CR] Stat Obtain Past Medical Record [OM.PC] Stat Peripheral IV Insertion Adult [OM.PC] Stat 03/19/20 14:55 Chest 1V Frontal [CR] Stat 03/19/20 15:33 CULTURE URINE [RM] Routine 03/19/20 15:42 EKG Documentation Completion [RC] ASDIRECTED 03/19/20 15:59 Nitroglycerin [Nitrostat] 0.4 mg SL ONETIME STA 03/19/20 16:11 Nitroglycerin [Nitrostat] 0.4 mg SL Q5M PRN 03/19/20 16:43 Nitroglycerin [Nitrostat] 0.4 mg SL ONETIME STA 03/19/20 Breakfast Nothing Per Oral Diet [DIET] Assessment:: As above Plan: As above. Extensive precautions were given to the patient and her daughter, who are in agreement with the treatment plan. Ambulance transfer with skin piler accompaniment.
[2020-03-19 15:16] LABS: PTT,PARTIAL THROMBOPLSTIN TIME 27.6 SEC (24.5-32.8)
[2020-03-19] MEDS: Nitroglycerin 2% Oint 1 GM UD Packet TOP ONE (16:03)
[2020-03-19] MEDS: Famotidine 20 MG/2 ML SDV IVPUSH ONE (16:03)
[2020-03-19] MEDS: Nitroglycerin 0.4 MG Tab.SL SL STA ×2 (16:05→16:50)
[2020-03-19] MEDS: Nitroglycerin 0.4 MG Tab.SL SL PRN (16:15)
[2020-03-19] MEDS: Potassium Chloride 20 MEQ Tab.ER PO ONE (16:15)
[2020-03-19] MEDS: Magnesium Sulfate/Water 4 GM in Premix Bag 1 BAG IV ONE (16:25)
[2020-03-19 16:30] VITALS: PULSE 81
[2020-03-19 16:51] VITALS: BP 198/115
[2020-03-19] MEDS ORDERED: hydrALAZINE 20 MG/ML SDV ONE (17:09)
== END 2020-03-19 17:45 ==
LOC: LL.ED 14:28
DX: E87.6 Hypokalemia (principal); E83.42 Hypomagnesemia; I13.0 Hypertensive heart and chronic kidney disease with heart failure and stage 1 through stage 4 chronic kidney disease, or unspecified chronic kidney disease; I50.9 Heart failure, unspecified; N39.0 Urinary tract infection, site not specified; K21.9 Gastro-esophageal reflux disease without esophagitis; R91.1 Solitary pulmonary nodule; N28.9 Disorder of kidney and ureter, unspecified; E88.09 Other disorders of plasma-protein metabolism, not elsewhere classified; I25.10 Atherosclerotic heart disease of native coronary artery without angina pectoris; J44.9 Chronic obstructive pulmonary disease, unspecified; M41.9 Scoliosis, unspecified; F41.9 Anxiety disorder, unspecified; F32.9 Major depressive disorder, single episode, unspecified; E78.00 Pure hypercholesterolemia, unspecified; I25.2 Old myocardial infarction; Z71.6 Tobacco abuse counseling; Z79.01 Long term (current) use of anticoagulants; Z79.899 Other long term (current) drug therapy; Z86.73 Personal history of transient ischemic attack (TIA), and cerebral infarction without residual deficits
CPT/HCPCS: 36415; 71045; 80053; 81001; 82550; 82553; 83605; 83735; 83880; 84443; 84484; 85025; 85379; 85610; 85730; 87086; 93005; 96365; 96375; 99285-25; A9270-GY; J3475; J3490

== ENCOUNTER 2021-06-24 19:41 | Inpatient (IN) | payer MEDICARE, BC ==
[2021-06-24] MEDS ORDERED: Ondansetron 4 MG/2 ML SDV IVPUSH ONE (20:07)
[2021-06-24] MEDS: Sodium Chloride 0.9% 10 ML Syringe FLUSH PRN (20:11)
[2021-06-24 20:25] LABS: PTT,PARTIAL THROMBOPLSTIN TIME 27.7 SEC (24.5-32.8)
--- NOTE | 2021-06-24 20:26 | EDM.PDOC ---
ED HPI GENERAL MEDICAL PROBLEM - General Chief Complaint: Cardiovascular Problem Stated Complaint: tacycardia Time Seen by Provider: 06/24/21 20:00 Source of Information: Reports: Patient, Family - History of Present Illness INITIAL COMMENTS - FREE TEXT/NARRATIVE: Berkley is an 85 y/o female who is brought to the ER by her family with a fever. She apparently had a fever at home of 101.6 when her daughter checked it. Yesterday she was trying to drink water and today she could not. Has an upset stomach and also noted loose, black stools. Patient just doesn't feel well and has many non-specific complaints. Right Shoulder Pain Score (Numeric/FACES): 6 - Related Data Allergies Allergy/AdvReac Type Severity Reaction Status Date / Time No Known Allergies Allergy Verified 03/19/20 14:31 Home Meds: Home Meds Sertraline [Zoloft] 10 mg PO QPM 11/03/13 [History] atorvaSTATin [Lipitor] 40 mg PO BEDTIME 11/03/13 [History] cloNIDine [Catapres] 0.1 mg PO BEDTIME 11/03/13 [History] lisinopriL [Prinivil] 20 mg PO BID 07/26/19 [History] Magnesium 250 mg PO DAILY 08/18/19 [History] Apixaban [Eliquis] 2.5 mg PO BID 03/19/20 [History] Dorzolamide HCl/Timolol Maleat [Dorzolamide-Timolol Eye Drops] 1 drop EYEBOTH BID 03/19/20 [History] Fluticasone Propionate [Flonase] 2 spray NASBOTH DAILY 03/19/20 [History] Levothyroxine 25 mcg PO DAILY 03/19/20 [History] Cholecalciferol (Vitamin D3) [Vitamin D] 50 mg PO DAILY 06/24/21 [History] Famotidine [Pepcid] 20 mg PO BEDTIME 06/24/21 [History] amLODIPine [Norvasc] 10 mg PO DAILY 06/24/21 [History] hydrALAZINE [Apresoline] 25 mg PO BID 06/24/21 [History] Past Medical History HEENT History: Reports: Allergic Rhinitis, Cataract, Glaucoma, Hard of Hearing, Impaired Vision, Macular Degeneration, Sinusitis, Other (See Below). 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 Cardiovascular History: Reports: Arrhythmia, Blood Clots/VTE/DVT, CAD, Cardiomyopathy, Heart Failure, High Cholesterol, Hypertension, AK, PVD, Other (See Below). 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 Syncopal episode during chiropractic treatment in 2019. Mild carotid occlusive disease and peripheral vascular disease. History of intermittent bradycardia with intermittent Mobitz type II block with planned pacemaker placement in April 2020. Incomplete right bundle branch block, PACs, PVCs, first-degree AV block, sinus arrhythmia and mild coronary artery disease with 40% stenosis of the right coronary artery by heart catheterization in 2002 as below. Apparent previous history of a non-STEMI without other cardiac procedures. Borderline occasional CHF with small pleural effusions and known grade 1 diastolic dysfunction. Right ventricular enlargement. Respiratory History: Reports: Bronchitis, Recurrent, COPD, Intubation, Previous, PE, Pneumonia, Recurrent, Pulmonary Fibrosis, Other (See Below). Denies: Asthma, Intubation, Difficult, Pneumothorax, TB Other Respiratory History: Large right PE above. Gastrointestinal History: Reports: Cholelithiasis, Colon Polyp, Diverticulosis, Gastritis, GERD, Hepatitis, Hiatal Hernia, PUD, Other (See Below) Other Gastrointestinal History: History of small colonic polyps of unknown type however evidence of mild colitis per biopsies at time of colonoscopy on 07/10/03. Moderate diverticulosis extending from the distal transverse colon to the sigmoid region. Genitourinary History: Reports: Chronic Renal Insuffiency, Urinary Incontinence, UTI, Recurrent. Denies: Retention, Urinary, STD TIRE TECHNICIAN History: Reports: Dysfunctional Uterine Bleeding, Fibroids, Other TIRE TECHNICIAN History: 1 premature delivery at about 7 months gestation otherwise Full term without complications during pregnancies or deliveries. Surgical menopause secondary to dysfunctional uterine bleeding. Benign vaginal polyp on 04/20/2000. Musculoskeletal History: Reports: Arthritis, Back Pain, Chronic, Fracture, Neck Pain, Chronic, Osteoarthritis, Osteoporosis Other Musculoskeletal History: Scoliosis. Left lateral malleolar fracture on 07/01/98. 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 Psychiatric History: Reports: Anxiety, Depression Endocrine/Metabolic History: Reports: Hypokalemia, Hypomagnesemia, Hypothyroidism, Other (See Below) Other Endocrine/Metabolic History: Angel's disease. Previous hyperglycemia. Hematologic History: Reports: Blood Transfusion(s), Other (See Below) Other Hematologic History: Chronic leukopenia. Blood transfusion at time of hysterectomy. Dermatologic History: Reports: Other (See Below) Other Dermatologic History: Facial actinic keratosis diagnosed on 01/05/94. - Infectious Disease History Infectious Disease History: Reports: Hepatitis A (Probable hepatitis A at age 10.) - Past Surgical History HEENT Surgical History: Reports: Cataract Surgery, Eye Surgery, Laser Surgery, Other (See Below) Other HEENT Surgeries/Procedures: Bilateral laser treatments of the eye in about June 1999. Right cataract extraction on 01/15/02 with left cataract extraction on . YAG laser posterior capsule treatment bilaterally on 12/14/05. Right eye shunt placement initially on 01/08/20 with revision on 01/22/20 secondary to her glaucoma. GI Surgical History: Reports: Appendectomy, Cholecystectomy, Colonoscopy, EGD, Other (See Below) Other GI Surgeries/Procedures: Last EGD and colonoscopy on 11/01/07 with similar previous evaluations on 07/10/03 with polypectomies 2 in 2002 as above. Additi onal colonoscopy on 05/31/04. Incidental appendectomy at time of hysterectomy as below at age 33. Female Surgical History: Reports: Hysterectomy, Salpingo-Oophorectomy, Other (See Below) Other Female Surgeries/Procedures: Partial hysterectomy with unilateral salpingo-oophorectomy and concomitant incidental appendectomy. Dysfunctional uterine bleeding at about age 33. Dermatological Surgical History: Reports: Other (See Below) Other Dermatological Surgeries/Procedures: Excision of actinic keratosis from the right facial region on 01/05/94. - Past Imaging History Past Imaging History: Reports: Angiography (Pulmonary angiogram with thrombectomy on 11/08/13 and 11/09/13 as above. Heart Catheterization on 06/16/03 with findings as above.), Cardiac Echo (Last on 08/06/19 with ejection fraction of 5560 percent with findings as above. Previous evaluations on 11/08/13 and 09/06/99.), Carotid US (Multiple previous evaluations last on 08/06/19.), CAT Scan (Positive CTA of the chest on 11/08/[address] of the head on 03/15/99.), DEXA Scan (Multiple previous DEXA scans last on 05/10/11.), Holter Monitor (Last 48 hour Holter monitor study on 11/27/19 with results as above and previous evaluation on 09/01/99.), Mammogram (Last on 05/22/14.), PFT (07/01/03), S tress Testing (Dobutamine Cardiolite stress test on 06/08/07 on 06/08/07 with ejection fraction of 71%. Cardiolite stress test negative on 05/22/03.), Ultrasound (Abdominal aortic ultrasound on 05/05/06.), Venous Doppler (Lower extremities on 11/08/13 positive for right popliteal and peroneal DVT.) Social & Family History - Family History Cardiac: Reports: Bypass, CAD, Hypertension, AK, Other (See Below) Other Cardiac Family History: Brothers 2 with AK and CABG is in their 60s with one of these brothers dying from an AK at age 82. Brother with CHF and renal failure. Brother with possible cardiac aneurysm. Son with fatal AK at age 52 secondary to severe multivessel disease. Brother with hyperlipidemia. Respiratory: Reports: Asthma, Other (See Below) Other Respiratory Family Hisory: Maternal aunt with asthma. : Reports: Renal Disease/Insufficiency, Other (See Below) Other Family History: Brother with renal failure as above. Musculoskeletal: Reports: Arthritis, Osteoarthritis, Other (See Below) Other Musculoskeletal Family History: Osteoarthritis in father and brother. Neurological: Reports: Alzheimers Disease, CVA, Dementia, Parkinson's, Other (See Below) Other Neurological Family History: Brother with embolic CVA in his 60s. Mother with possible fatal CVA in her 70s. Brother with organic brain syndrome and Parkinson's disease. Endocrine/Metabolic: Reports: Diabetes, type II, IDDM, Other (See Below) Other Endocrine/Metabolic Family History: Brother with IDDM. Oncologic: Reports: Leukemia, Renal, Other (See Below) Other Oncologic Family History: Maternal aunts 2 with fatal unknown type of cancer in their 70s. Brother with renal cancer fatal in his 60s. Another brother with fatal leukemia at age 79. 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64.) ED ROS GENERAL - Review of Systems Review Of Systems: See Below Constitutional: Reports: Fever, Chills, Malaise, Weakness, Decreased Appetite HEENT: Reports: No Symptoms Respiratory: Reports: No Symptoms Cardiovascular: Reports: No Symptoms Endocrine: Reports: No Symptoms GI/Abdominal: Reports: Black Stool, Diarrhea, Nausea : Reports: No Symptoms Musculoskeletal: Reports: No Symptoms Skin: Reports: No Symptoms Neurological: Reports: No Symptoms Psychiatric: Reports: No Symptoms Hematologic/Lymphatic: Reports: No Symptoms Immunologic: Reports: No Symptoms ED EXAM, GENERAL - Physical Exam Exam: See Below General Appearance: Alert, WD/WN (Elderly female on ER cart, appears to not feel well at all.) Eye Exam: Bilateral Eye: PERRL Ears: Normal External Exam, Normal Canal, Hearing Grossly Normal, Normal TMs Nose: Normal Inspection Throat/Mouth: Normal Lips, Other (Mucous membranes slightly dry) Head: Atraumatic, Normocephalic Neck: Normal Inspection, Supple, Non-Tender Respiratory/Chest: No Respiratory Distress, Lungs Clear, Chest Non-Tender Cardiovascular: Normal Peripheral Pulses, Regular Rate, Rhythm, Tachycardia GI/Abdominal: Normal Bowel Sounds, Soft (Female) Exam: Deferred Back Exam: Normal Inspection, Full Range of Motion Extremities: Normal Inspection, Normal Range of Motion, No Pedal Edema, Normal Capillary Refill Neurological: Alert, Oriented, CN II-XII Intact, Normal Reflexes Psychiatric: Normal Affect, Normal Mood Skin Exam: Dry, Intact, Normal Color, Increased Warmth Lymphatic: No Adenopathy #1 Interpretation EKG Date: 06/24/21 Time: 20:15 Rhythm: NSR Rate (Beats/Min): 95 [place]: Normal P-Wave: Enlarged QRS: Normal ST-T: Normal QT: Normal EKG Interpretation Comments: SR with 1st Degree AV Block Course - Vital Signs Text/Narrative:: 1999 The patient was seen by the INSTALLATION SPECIALIST. Labs, EKG, adn CXR were done. IV fluids started and she was given Zofran 4mg IVP. 2044 Labs reviewed: Note WBC=2.98, Ncjb=866; CMP Potassium=3.0, BUN=25, Fisheries Enforcement Officer=1.31, Lxtmxbq=885, Mag=1.5; Troponin I=95, PT/INR=0.9; CRP=11.7, Lactic Acid=4.3; Blood Cx pending; COVID=negative; SFOB=negative. Differentials include NSTEMI, Lacic Acidosis due to dehydration or possible infection not yet identified or apparent on exam. Also electrolyte imbalance. Discussed with patient who desires transfer to [facility]. She is a full code. Will cover her with Ceftriaxone 1gm IVP for the elevated lactate, but suspect it may more fluid related. [address] contacted for transfer, no beds available. Patient placed on waiting list for bed. Will plan Observation admit here in [place] until we can get the patient sent out. Will rehydrate her, replace electrolytes, do serial troponin and lactate levels. Will plan to replace Potassium and Magnesium and then of course follow labs and place her on tele. See Orders. Last Recorded V/S: Last Vital Signs Temp Pulse 104 H 06/24/21 21:15 Resp 21 H 06/24/21 21:15 BP 120/52 L 06/24/21 21:15 Pulse Ox 93 L 06/24/21 21:15 - Orders/Labs/Meds Orders: Active Orders 24 hr Category Date Time Status Chest 1V Frontal [CR] Stat Exams 06/24/21 20:05 Ordered CULTURE BLOOD [BC] Stat Lab 06/24/21 19:54 Received CULTURE URINE [RM] Routine Lab 06/24/21 20:50 Received Sodium Chloride 0.9% [Normal Saline] 1,000 ml Med 06/24/21 20:30 Active IV ASDIRECTED Sodium Chloride 0.9% [Normal Saline] 500 ml Med 06/24/21 21:30 Ordered IV .BOLUS Sodium Chloride 0.9% [Saline Flush] Med 06/24/21 20:05 Active 10 ml FLUSH ASDIRECTED PRN Saline Lock Insert [OM.PC] Stat Oth 06/24/21 20:05 Ordered Medication Orders Sodium Chloride (Normal Saline) 1,000 mls @ 100 mls/hr IV ASDIRECTED DARI Last Admin: 06/24/21 21:07 Dose: 100 mls/hr Documented by: JOSE Sodium Chloride (Sodium Chloride 0.9% 10 Ml Syringe) 10 ml FLUSH ASDIRECTED PRN PRN Reason: Keep Vein Open Last Admin: 06/24/21 20:11 Dose: 10 ml Documented by: JOSE Labs: Laboratory Tests 06/24/21 06/24/21 06/24/21 Range/Units 19:54 19:54 19:54 WBC 2.8 L (4.0-10.2) K/uL RBC 3.96 (3.77-5.09) M/uL Hgb 12.1 (11.7-15.5) g/dL Hct 36.8 (34.0-46.0) % MCV 92.9 (84.0-98.0) fL MCH 30.6 (28.2-33.3) pg MCHC 32.9 (31.7-36.0) g/dL RDW 14.9 H (11.2-14.1) % Plt Count 129 L (150-350) K/uL Neut % (Auto) 89.2 H (45.0-80.0) % Lymph % (Auto) 9.3 L (10.0-50.0) % [place] % (Auto) 0.7 L (2.0-14.0) % Eos % (Auto) 0.4 (0.0-5.0) % Baso % (Auto) 0.4 (0.0-2.0) % Neut # (Auto) 2.50 (1.40-7.00) K/uL Lymph # (Auto) 0.26 L (0.50-3.50) K/uL [place] # (Auto) 0.02 (0.00-1.00) K/uL Eos # (Auto) 0.01 (0.00-0.50) K/uL Baso # (Auto) 0.01 (0.00-0.20) K/uL PT 10.7 (9.5-12.0) SEC INR 1.1 APTT 27.7 (24.5-32.8) SEC Sodium 140 (136-145) mmol/L Potassium 3.0 L (3.5-5.1) mmol/L Chloride 104 (98-107) mmol/L Carbon Dioxide 20.2 L (21.0-32.0) mmol/L Anion Gap 18.8 H (7-15) meq/L BUN 25 H (7-18) mg/dL Creatinine 1.31 H (0.51-1.17) mg/dL Est Cr Clr Drug Dosing 26.49 mL/min Estimated GFR (MDRD) 38 mL/min Glucose 131 H (70-99) mg/dL Lactic Acid (0.4-2.0) mmol/L Calcium 9.0 (8.5-10.1) mg/dL Magnesium 1.5 L (1.8-2.4) mg/dL Total Bilirubin 1.3 H (0.2-1.0) mg/dL AST 22 (15-37) U/L ALT 23 (12-78) U/L Alkaline Phosphatase 156 H (46-116) IU/L Troponin I High Sens 95 H* (<=51) ng/L C-Reactive Protein 11.7 H (<=0.9) mg/dL Total Protein 7.3 (6.4-8.2) g/dL Albumin 3.4 (3.4-5.0) g/dL Specimen Type Urine Color Urine Appearance Urine pH (5.0-9.0) Ur Specific [place] (1.005-1.030) Urine Protein (NEGATIVE) mg/dL Urine Glucose (UA) (NEGATIVE) mg/dL Urine Ketones (NEGATIVE) mg/dL Urine Occult Blood (NEGATIVE) Urine Nitrite (NEGATIVE) Urine Bilirubin (NEGATIVE) Urine Urobilinogen (0.2-1.0) E.U./dL Ur Leukocyte Esterase (NEGATIVE) Urine RBC /HPF Urine WBC /HPF Ur Epithelial Cells /LPF Urine Bacteria (NONE TO FEW) /HPF SARS-CoV-2 RNA (BETY) (NEGATIVE) 06/24/21 06/24/21 06/24/21 Range/Units 19:54 20:06 20:06 WBC (4.0-10.2) K/uL RBC (3.77-5.09) M/uL Hgb (11.7-15.5) g/dL Hct (34.0-46.0) % MCV (84.0-98.0) fL MCH (28.2-33.3) pg MCHC (31.7-36.0) g/dL RDW (11.2-14.1) % Plt Count (150-350) K/uL Neut % (Auto) (45.0-80.0) % Lymph % (Auto) (10.0-50.0) % [place] % (Auto) (2.0-14.0) % Eos % (Auto) (0.0-5.0) % Baso % (Auto) (0.0-2.0) % Neut # (Auto) (1.40-7.00) K/uL Lymph # (Auto) (0.50-3.50) K/uL [place] # (Auto) (0.00-1.00) K/uL Eos # (Auto) (0.00-0.50) K/uL Baso # (Auto) (0.00-0.20) K/uL PT (9.5-12.0) SEC INR APTT (24.5-32.8) SEC Sodium (136-145) mmol/L Potassium (3.5-5.1) mmol/L Chloride (98-107) mmol/L Carbon Dioxide (21.0-32.0) mmol/L Anion Gap (7-15) meq/L BUN (7-18) mg/dL Creatinine (0.51-1.17) mg/dL Est Cr Clr Drug Dosing mL/min Estimated GFR (MDRD) mL/min Glucose (70-99) mg/dL Lactic Acid 4.3 H (0.4-2.0) mmol/L Calcium (8.5-10.1) mg/dL Magnesium (1.8-2.4) mg/dL Total Bilirubin (0.2-1.0) mg/dL AST (15-37) U/L ALT (12-78) U/L Alkaline Phosphatase (46-116) IU/L Troponin I High Sens (<=51) ng/L C-Reactive Protein (<=0.9) mg/dL Total Protein (6.4-8.2) g/dL Albumin (3.4-5.0) g/dL Specimen Type Urincc Urine Color Yellow Urine Appearance Clear Urine pH 6.0 (5.0-9.0) Ur Specific [place] 1.020 (1.005-1.030) Urine Protein >=300 H (NEGATIVE) mg/dL Urine Glucose (UA) Negative (NEGATIVE) mg/dL Urine Ketones Negative (NEGATIVE) mg/dL Urine Occult Blood Large H (NEGATIVE) Urine Nitrite Negative (NEGATIVE) Urine Bilirubin Negative (NEGATIVE) Urine Urobilinogen 0.2 (0.2-1.0) E.U./dL Ur Leukocyte Esterase Negative (NEGATIVE) Urine RBC 10-20 H /HPF Urine WBC 10-20 H /HPF Ur Epithelial Cells Few /LPF Urine Bacteria Many H (NONE TO FEW) /HPF SARS-CoV-2 RNA (BETY) Negative (NEGATIVE) Meds: Medications Generic Name Dose Route Start Last Admin Trade Name Freq PRN Reason Stop Dose Admin Sodium Chloride 1,000 mls @ 100 mls/hr 06/24/21 20:30 06/24/21 21:07 Normal Saline IV 100 mls/hr ASDIRECTED DARI Administration Sodium Chloride 10 ml 06/24/21 20:05 06/24/21 20:11 Sodium Chloride 0.9% 10 Ml Syringe FLUSH 10 ml ASDIRECTED PRN Administration Keep Vein Open Discontinued Medications Generic Name Dose Route Start Last Admin Trade Name Freq PRN Reason Stop Dose Admin Ondansetron HCl 4 mg 06/24/21 20:07 06/24/21 20:11 Ondansetron 4 Mg/2 Ml Sdv IVPUSH 06/24/21 20:08 4 mg ONETIME ONE Administration Departure - Departure Time of Disposition: 21:20 Disposition: Refer to Observation Condition: Good Clinical Impression: Non-ST elevation AK (NSTEMI), Elevated lactic acid level Fever Qualifiers: Fever type: unspecified Qualified Code(s): R50.9 - Fever, unspecified Forms: ED Department Discharge Sepsis Event Note (ED) - Focused Exam Vital Signs: Vital Signs Pulse Resp BP Pulse Ox 06/24/21 21:15 104 H 21 H 120/52 L 93 L 06/24/21 20:11 99 20 120/81 99 06/24/21 20:04 116 H 24 H 162/74 H 94 L - My Orders Last 24 Hours: My Active Orders 06/24/21 19:54 CULTURE BLOOD [BC] Stat 06/24/21 20:05 Chest 1V Frontal [CR] Stat Sodium Chloride 0.9% [Saline Flush] 10 ml FLUSH ASDIRECTED PRN Saline Lock Insert [OM.PC] Stat 06/24/21 20:30 Sodium Chloride 0.9% [Normal Saline] 1,000 ml IV ASDIRECTED 06/24/21 20:50 CULTURE URINE [RM] Routine 06/24/21 21:30 Sodium Chloride 0.9% [Normal Saline] 500 ml IV .BOLUS - Assessment/Plan Last 24 Hours: My Active Orders 06/24/21 19:54 CULTURE BLOOD [BC] Stat 06/24/21 20:05 Chest 1V Frontal [CR] Stat Sodium Chloride 0.9% [Saline Flush] 10 ml FLUSH ASDIRECTED PRN Saline Lock Insert [OM.PC] Stat 06/24/21 20:30 Sodium Chloride 0.9% [Normal Saline] 1,000 ml IV ASDIRECTED 06/24/21 20:50 CULTURE URINE [RM] Routine 06/24/21 21:30 Sodium Chloride 0.9% [Normal Saline] 500 ml IV .BOLUS
[2021-06-24 20:38] LABS: ANION GAP 18.8 meq/L (7-15)
[2021-06-24] MEDS: Sodium Chloride 0.9% 1,000 ML IV SCH ×2 (21:07→23:07)
[2021-06-24] MEDS ORDERED: Sodium Chloride 0.9% 500 ML IV SCH (21:30)
[2021-06-24] MEDS ORDERED: cefTRIAXone 1 GM Vial IVPUSH ONE (21:37)
[2021-06-24] MEDS ORDERED: Ondansetron 4 MG Tab.DIS PO PRN (21:50)
[2021-06-24] MEDS: Potassium Chloride Riders 10 MEQ in Premix Bag 1 BAG IV SCH (23:08)
[2021-06-24] MEDS: Magnesium Sulfate/Water 2 GM in Premix Bag 1 BAG IV SCH (23:29)
[2021-06-25] MEDS: Acetaminophen 325 MG Tab PO PRN (00:33)
[2021-06-25] MEDS: Potassium Chloride Riders 10 MEQ in Premix Bag 1 BAG IV SCH ×5 (00:34→04:42)
[2021-06-25] MEDS: Magnesium Sulfate/Water 2 GM in Premix Bag 1 BAG IV SCH ×2 (01:13→02:54)
[2021-06-25 04:53] LABS: ANION GAP 12.3 meq/L (7-15)
[2021-06-25] MEDS ORDERED: cefTRIAXone 2 GM Vial IVPUSH SCH (10:00)
--- NOTE | 2021-06-25 10:16 | PCM.PN ---
- General Info Date of Service: 06/25/21 Admission Dx/Problem (Free Text): 1)NSTEMI 2)Fever 3)Electrolyte Imbalance Subjective Update: Berkley is resting this AM. She does think she feels a little bit better. Her nausea seems to be better and she had clear liquids for breakfast. She is still on hold here in [place] and on the transfer list at [facility] when bed available today. - Review of Systems General: Reports: Weakness HEENT: Reports: No Symptoms Pulmonary: Reports: No Symptoms Cardiovascular: Reports: No Symptoms Gastrointestinal: Reports: Decreased Appetite Genitourinary: Reports: No Symptoms Musculoskeletal: Reports: No Symptoms Skin: Reports: No Symptoms Neurological: Reports: No Symptoms Psychiatric: Reports: No Symptoms - Patient Data Vitals - Most Recent: Last Vital Signs Temp 36.6 C 06/25/21 08:00 Pulse 73 06/25/21 08:00 Resp 16 06/25/21 08:00 BP 111/57 L 06/25/21 08:00 Pulse Ox 95 06/25/21 08:00 Weight - Most Recent: 54.431 kg I&O - Last 24 Hours: Intake & Output 06/24/21 06/25/21 06/25/21 22:59 06:59 14:59 Intake Total 1947 Balance 1947 Lab Results Last 24 Hours: Laboratory Results - last 24 hr 06/24/21 06/24/21 06/24/21 Range/Units 19:54 19:54 19:54 WBC 2.8 L (4.0-10.2) K/uL RBC 3.96 (3.77-5.09) M/uL Hgb 12.1 (11.7-15.5) g/dL Hct 36.8 (34.0-46.0) % MCV 92.9 (84.0-98.0) fL MCH 30.6 (28.2-33.3) pg MCHC 32.9 (31.7-36.0) g/dL RDW 14.9 H (11.2-14.1) % Plt Count 129 L (150-350) K/uL Neut % (Auto) 89.2 H (45.0-80.0) % Lymph % (Auto) 9.3 L (10.0-50.0) % [place] % (Auto) 0.7 L (2.0-14.0) % Eos % (Auto) 0.4 (0.0-5.0) % Baso % (Auto) 0.4 (0.0-2.0) % Neut # (Auto) 2.50 (1.40-7.00) K/uL Lymph # (Auto) 0.26 L (0.50-3.50) K/uL [place] # (Auto) 0.02 (0.00-1.00) K/uL Eos # (Auto) 0.01 (0.00-0.50) K/uL Baso # (Auto) 0.01 (0.00-0.20) K/uL PT 10.7 (9.5-12.0) SEC INR 1.1 APTT 27.7 (24.5-32.8) SEC Sodium 140 (136-145) mmol/L Potassium 3.0 L (3.5-5.1) mmol/L Chloride 104 (98-107) mmol/L Carbon Dioxide 20.2 L (21.0-32.0) mmol/L Anion Gap 18.8 H (7-15) meq/L BUN 25 H (7-18) mg/dL Creatinine 1.31 H (0.51-1.17) mg/dL Est Cr Clr Drug Dosing 26.49 mL/min Estimated GFR (MDRD) 38 mL/min Glucose 131 H (70-99) mg/dL Lactic Acid (0.4-2.0) mmol/L Calcium 9.0 (8.5-10.1) mg/dL Magnesium 1.5 L (1.8-2.4) mg/dL Total Bilirubin 1.3 H (0.2-1.0) mg/dL AST 22 (15-37) U/L ALT 23 (12-78) U/L Alkaline Phosphatase 156 H (46-116) IU/L Troponin I High Sens 95 H* (<=51) ng/L C-Reactive Protein 11.7 H (<=0.9) mg/dL Total Protein 7.3 (6.4-8.2) g/dL Albumin 3.4 (3.4-5.0) g/dL Specimen Type Urine Color Urine Appearance Urine pH (5.0-9.0) Ur Specific [place] (1.005-1.030) Urine Protein (NEGATIVE) mg/dL Urine Glucose (UA) (NEGATIVE) mg/dL Urine Ketones (NEGATIVE) mg/dL Urine Occult Blood (NEGATIVE) Urine Nitrite (NEGATIVE) Urine Bilirubin (NEGATIVE) Urine Urobilinogen (0.2-1.0) E.U./dL Ur Leukocyte Esterase (NEGATIVE) Urine RBC /HPF Urine WBC /HPF Ur Epithelial Cells /LPF Urine Bacteria (NONE TO FEW) /HPF SARS-CoV-2 RNA (BETY) (NEGATIVE) 06/24/21 06/24/21 06/24/21 Range/Units 19:54 20:06 20:06 WBC (4.0-10.2) K/uL RBC (3.77-5.09) M/uL Hgb (11.7-15.5) g/dL Hct (34.0-46.0) % MCV (84.0-98.0) fL MCH (28.2-33.3) pg MCHC (31.7-36.0) g/dL RDW (11.2-14.1) % Plt Count (150-350) K/uL Neut % (Auto) (45.0-80.0) % Lymph % (Auto) (10.0-50.0) % [place] % (Auto) (2.0-14.0) % Eos % (Auto) (0.0-5.0) % Baso % (Auto) (0.0-2.0) % Neut # (Auto) (1.40-7.00) K/uL Lymph # (Auto) (0.50-3.50) K/uL [place] # (Auto) (0.00-1.00) K/uL Eos # (Auto) (0.00-0.50) K/uL Baso # (Auto) (0.00-0.20) K/uL PT (9.5-12.0) SEC INR APTT (24.5-32.8) SEC Sodium (136-145) mmol/L Potassium (3.5-5.1) mmol/L Chloride (98-107) mmol/L Carbon Dioxide (21.0-32.0) mmol/L Anion Gap (7-15) meq/L BUN (7-18) mg/dL Creatinine (0.51-1.17) mg/dL Est Cr Clr Drug Dosing mL/min Estimated GFR (MDRD) mL/min Glucose (70-99) mg/dL Lactic Acid 4.3 H (0.4-2.0) mmol/L Calcium (8.5-10.1) mg/dL Magnesium (1.8-2.4) mg/dL Total Bilirubin (0.2-1.0) mg/dL AST (15-37) U/L ALT (12-78) U/L Alkaline Phosphatase (46-116) IU/L Troponin I High Sens (<=51) ng/L C-Reactive Protein (<=0.9) mg/dL Total Protein (6.4-8.2) g/dL Albumin (3.4-5.0) g/dL Specimen Type Urincc Urine Color Yellow Urine Appearance Clear Urine pH 6.0 (5.0-9.0) Ur Specific [place] 1.020 (1.005-1.030) Urine Protein >=300 H (NEGATIVE) mg/dL Urine Glucose (UA) Negative (NEGATIVE) mg/dL Urine Ketones Negative (NEGATIVE) mg/dL Urine Occult Blood Large H (NEGATIVE) Urine Nitrite Negative (NEGATIVE) Urine Bilirubin Negative (NEGATIVE) Urine Urobilinogen 0.2 (0.2-1.0) E.U./dL Ur Leukocyte Esterase Negative (NEGATIVE) Urine RBC 10-20 H /HPF Urine WBC 10-20 H /HPF Ur Epithelial Cells Few /LPF Urine Bacteria Many H (NONE TO FEW) /HPF SARS-CoV-2 RNA (BETY) Negative (NEGATIVE) 06/24/21 06/24/21 06/25/21 Range/Units 23:15 23:15 04:00 WBC 15.5 H (4.0-10.2) K/uL RBC 3.59 L (3.77-5.09) M/uL Hgb 11.0 L (11.7-15.5) g/dL Hct 33.9 L (34.0-46.0) % MCV 94.4 (84.0-98.0) fL MCH 30.6 (28.2-33.3) pg MCHC 32.4 (31.7-36.0) g/dL RDW 15.0 H (11.2-14.1) % Plt Count 117 L (150-350) K/uL Neut % (Auto) 93.5 H (45.0-80.0) % Lymph % (Auto) 2.5 L (10.0-50.0) % [place] % (Auto) 3.9 (2.0-14.0) % Eos % (Auto) 0.0 (0.0-5.0) % Baso % (Auto) 0.1 (0.0-2.0) % Neut # (Auto) 14.47 H (1.40-7.00) K/uL Lymph # (Auto) 0.38 L (0.50-3.50) K/uL [place] # (Auto) 0.60 (0.00-1.00) K/uL Eos # (Auto) 0.00 (0.00-0.50) K/uL Baso # (Auto) 0.02 (0.00-0.20) K/uL PT (9.5-12.0) SEC INR APTT (24.5-32.8) SEC Sodium (136-145) mmol/L Potassium (3.5-5.1) mmol/L Chloride (98-107) mmol/L Carbon Dioxide (21.0-32.0) mmol/L Anion Gap (7-15) meq/L BUN (7-18) mg/dL Creatinine (0.51-1.17) mg/dL Est Cr Clr Drug Dosing mL/min Estimated GFR (MDRD) mL/min Glucose (70-99) mg/dL Lactic Acid 1.4 (0.4-2.0) mmol/L Calcium (8.5-10.1) mg/dL Magnesium (1.8-2.4) mg/dL Total Bilirubin (0.2-1.0) mg/dL AST (15-37) U/L ALT (12-78) U/L Alkaline Phosphatase (46-116) IU/L Troponin I High Sens 1065 H* (<=51) ng/L C-Reactive Protein (<=0.9) mg/dL Total Protein (6.4-8.2) g/dL Albumin (3.4-5.0) g/dL Specimen Type Urine Color Urine Appearance Urine pH (5.0-9.0) Ur Specific [place] (1.005-1.030) Urine Protein (NEGATIVE) mg/dL Urine Glucose (UA) (NEGATIVE) mg/dL Urine Ketones (NEGATIVE) mg/dL Urine Occult Blood (NEGATIVE) Urine Nitrite (NEGATIVE) Urine Bilirubin (NEGATIVE) Urine Urobilinogen (0.2-1.0) E.U./dL Ur Leukocyte Esterase (NEGATIVE) Urine RBC /HPF Urine WBC /HPF Ur Epithelial Cells /LPF Urine Bacteria (NONE TO FEW) /HPF SARS-CoV-2 RNA (BETY) (NEGATIVE) 06/25/21 Range/Units 04:30 WBC (4.0-10.2) K/uL RBC (3.77-5.09) M/uL Hgb (11.7-15.5) g/dL Hct (34.0-46.0) % MCV (84.0-98.0) fL MCH (28.2-33.3) pg MCHC (31.7-36.0) g/dL RDW (11.2-14.1) % Plt Count (150-350) K/uL Neut % (Auto) (45.0-80.0) % Lymph % (Auto) (10.0-50.0) % [place] % (Auto) (2.0-14.0) % Eos % (Auto) (0.0-5.0) % Baso % (Auto) (0.0-2.0) % Neut # (Auto) (1.40-7.00) K/uL Lymph # (Auto) (0.50-3.50) K/uL [place] # (Auto) (0.00-1.00) K/uL Eos # (Auto) (0.00-0.50) K/uL Baso # (Auto) (0.00-0.20) K/uL PT (9.5-12.0) SEC INR APTT (24.5-32.8) SEC Sodium 141 (136-145) mmol/L Potassium 3.7 (3.5-5.1) mmol/L Chloride 108 H (98-107) mmol/L Carbon Dioxide 24.4 (21.0-32.0) mmol/L Anion Gap 12.3 (7-15) meq/L BUN 23 H (7-18) mg/dL Creatinine 1.21 H (0.51-1.17) mg/dL Est Cr Clr Drug Dosing 28.68 mL/min Estimated GFR (MDRD) 42 mL/min Glucose 129 H (70-99) mg/dL Lactic Acid (0.4-2.0) mmol/L Calcium 8.8 (8.5-10.1) mg/dL Magnesium 3.4 H (1.8-2.4) mg/dL Total Bilirubin (0.2-1.0) mg/dL AST (15-37) U/L ALT (12-78) U/L Alkaline Phosphatase (46-116) IU/L Troponin I High Sens 1097 H* (<=51) ng/L C-Reactive Protein (<=0.9) mg/dL Total Protein (6.4-8.2) g/dL Albumin (3.4-5.0) g/dL Specimen Type Urine Color Urine Appearance Urine pH (5.0-9.0) Ur Specific [place] (1.005-1.030) Urine Protein (NEGATIVE) mg/dL Urine Glucose (UA) (NEGATIVE) mg/dL Urine Ketones (NEGATIVE) mg/dL Urine Occult Blood (NEGATIVE) Urine Nitrite (NEGATIVE) Urine Bilirubin (NEGATIVE) Urine Urobilinogen (0.2-1.0) E.U./dL Ur Leukocyte Esterase (NEGATIVE) Urine RBC /HPF Urine WBC /HPF Ur Epithelial Cells /LPF Urine Bacteria (NONE TO FEW) /HPF SARS-CoV-2 RNA (BETY) (NEGATIVE) [place] Results Last 24 Hours: Microbiology 06/24/21 20:50 Stool Occult Blood (OSITO) - Final Stool / Feces NEGATIVE OCCULT BLOOD REFERENCE RANGE: NEGATIVE Med Orders - Current: Current Medications Acetaminophen (Acetaminophen 325 Mg Tab) 650 mg PO Q4H PRN PRN Reason: Pain (Mild 1-3)/fever Last Admin: 06/25/21 00:33 Dose: 650 mg Documented by: Ceftriaxone Sodium (Ceftriaxone 2 Gm Vial) 1 gm IVPUSH Q24H DARI Sodium Chloride (Normal Saline) 1,000 mls @ 100 mls/hr IV ASDIRECTED DARI Last Admin: 06/24/21 23:07 Dose: 100 mls/hr Documented by: Sodium Chloride (Normal Saline) 500 mls @ 500 mls/hr IV .BOLUS DARI Last Admin: 06/24/21 23:07 Dose: 500 mls/hr Documented by: Ondansetron HCl (Ondansetron 4 Mg Tab.Dis) 4 mg PO Q4H PRN PRN Reason: Nausea/Vomiting Sodium Chloride (Sodium Chloride 0.9% 10 Ml Syringe) 10 ml FLUSH ASDIRECTED PRN PRN Reason: Keep Vein Open Last Admin: 06/24/21 20:11 Dose: 10 ml Documented by: Discontinued Medications Ceftriaxone Sodium (Ceftriaxone 1 Gm Vial) 1 gm IVPUSH STAT ONE Stop: 06/24/21 21:38 Last Admin: 06/24/21 23:07 Dose: 1 gm Documented by: Potassium Chloride 10 meq/ (Premix) 50 mls @ 50 mls/hr IV Q1H DARI Stop: 06/25/21 04:29 Last Admin: 06/25/21 04:42 Dose: 50 mls/hr Documented by: Magnesium Sulfate 2 gm/ Premix 50 mls @ 25 mls/hr IV Q1H DARI Stop: 06/25/21 01:29 Last Admin: 06/25/21 02:54 Dose: 25 mls/hr Documented by: Ondansetron HCl (Ondansetron 4 Mg/2 Ml Sdv) 4 mg IVPUSH ONETIME ONE Stop: 06/24/21 20:08 Last Admin: 06/24/21 20:11 Dose: 4 mg Documented by: - Exam General: Alert, Oriented, No Acute Distress (Elderly female, she is pleasant and tucked into bed resting. She looks a bit better today.) HEENT: Pupils Equal, Pupils Reactive, Mucous Membr. Moist/[place] Neck: Supple Lungs: Clear to Auscultation, Normal Respiratory Effort Cardiovascular: Regular Rate, Regular Rhythm GI/Abdominal Exam: Normal Bowel Sounds, Soft, Non-Tender (Female) Exam: Deferred Back Exam: Normal Inspection, Full Range of Motion Extremities: Normal Inspection, Normal Range of Motion, Normal Capillary Refill Skin: Warm, Dry, Intact Neurological: No New Focal Deficit Psy/Mental Status: Alert, Normal Affect, Normal Mood - Patient Data Lab Results Last 24 hrs: Laboratory Results - last 24 hr 06/24/21 06/24/21 06/24/21 Range/Units 19:54 19:54 19:54 WBC 2.8 L (4.0-10.2) K/uL RBC 3.96 (3.77-5.09) M/uL Hgb 12.1 (11.7-15.5) g/dL Hct 36.8 (34.0-46.0) % MCV 92.9 (84.0-98.0) fL MCH 30.6 (28.2-33.3) pg MCHC 32.9 (31.7-36.0) g/dL RDW 14.9 H (11.2-14.1) % Plt Count 129 L (150-350) K/uL Neut % (Auto) 89.2 H (45.0-80.0) % Lymph % (Auto) 9.3 L (10.0-50.0) % [place] % (Auto) 0.7 L (2.0-14.0) % Eos % (Auto) 0.4 (0.0-5.0) % Baso % (Auto) 0.4 (0.0-2.0) % Neut # (Auto) 2.50 (1.40-7.00) K/uL Lymph # (Auto) 0.26 L (0.50-3.50) K/uL [place] # (Auto) 0.02 (0.00-1.00) K/uL Eos # (Auto) 0.01 (0.00-0.50) K/uL Baso # (Auto) 0.01 (0.00-0.20) K/uL PT 10.7 (9.5-12.0) SEC INR 1.1 APTT 27.7 (24.5-32.8) SEC Sodium 140 (136-145) mmol/L Potassium 3.0 L (3.5-5.1) mmol/L Chloride 104 (98-107) mmol/L Carbon Dioxide 20.2 L (21.0-32.0) mmol/L Anion Gap 18.8 H (7-15) meq/L BUN 25 H (7-18) mg/dL Creatinine 1.31 H (0.51-1.17) mg/dL Est Cr Clr Drug Dosing 26.49 mL/min Estimated GFR (MDRD) 38 mL/min Glucose 131 H (70-99) mg/dL Lactic Acid (0.4-2.0) mmol/L Calcium 9.0 (8.5-10.1) mg/dL Magnesium 1.5 L (1.8-2.4) mg/dL Total Bilirubin 1.3 H (0.2-1.0) mg/dL AST 22 (15-37) U/L ALT 23 (12-78) U/L Alkaline Phosphatase 156 H (46-116) IU/L Troponin I High Sens 95 H* (<=51) ng/L C-Reactive Protein 11.7 H (<=0.9) mg/dL Total Protein 7.3 (6.4-8.2) g/dL Albumin 3.4 (3.4-5.0) g/dL Specimen Type Urine Color Urine Appearance Urine pH (5.0-9.0) Ur Specific [place] (1.005-1.030) Urine Protein (NEGATIVE) mg/dL Urine Glucose (UA) (NEGATIVE) mg/dL Urine Ketones (NEGATIVE) mg/dL Urine Occult Blood (NEGATIVE) Urine Nitrite (NEGATIVE) Urine Bilirubin (NEGATIVE) Urine Urobilinogen (0.2-1.0) E.U./dL Ur Leukocyte Esterase (NEGATIVE) Urine RBC /HPF Urine WBC /HPF Ur Epithelial Cells /LPF Urine Bacteria (NONE TO FEW) /HPF SARS-CoV-2 RNA (BETY) (NEGATIVE) 06/24/21 06/24/21 06/24/21 Range/Units 19:54 20:06 20:06 WBC (4.0-10.2) K/uL RBC (3.77-5.09) M/uL Hgb (11.7-15.5) g/dL Hct (34.0-46.0) % MCV (84.0-98.0) fL MCH (28.2-33.3) pg MCHC (31.7-36.0) g/dL RDW (11.2-14.1) % Plt Count (150-350) K/uL Neut % (Auto) (45.0-80.0) % Lymph % (Auto) (10.0-50.0) % [place] % (Auto) (2.0-14.0) % Eos % (Auto) (0.0-5.0) % Baso % (Auto) (0.0-2.0) % Neut # (Auto) (1.40-7.00) K/uL Lymph # (Auto) (0.50-3.50) K/uL [place] # (Auto) (0.00-1.00) K/uL Eos # (Auto) (0.00-0.50) K/uL Baso # (Auto) (0.00-0.20) K/uL PT (9.5-12.0) SEC INR APTT (24.5-32.8) SEC Sodium (136-145) mmol/L Potassium (3.5-5.1) mmol/L Chloride (98-107) mmol/L Carbon Dioxide (21.0-32.0) mmol/L Anion Gap (7-15) meq/L BUN (7-18) mg/dL Creatinine (0.51-1.17) mg/dL Est Cr Clr Drug Dosing mL/min Estimated GFR (MDRD) mL/min Glucose (70-99) mg/dL Lactic Acid 4.3 H (0.4-2.0) mmol/L Calcium (8.5-10.1) mg/dL Magnesium (1.8-2.4) mg/dL Total Bilirubin (0.2-1.0) mg/dL AST (15-37) U/L ALT (12-78) U/L Alkaline Phosphatase (46-116) IU/L Troponin I High Sens (<=51) ng/L C-Reactive Protein (<=0.9) mg/dL Total Protein (6.4-8.2) g/dL Albumin (3.4-5.0) g/dL Specimen Type Urincc Urine Color Yellow Urine Appearance Clear Urine pH 6.0 (5.0-9.0) Ur Specific [place] 1.020 (1.005-1.030) Urine Protein >=300 H (NEGATIVE) mg/dL Urine Glucose (UA) Negative (NEGATIVE) mg/dL Urine Ketones Negative (NEGATIVE) mg/dL Urine Occult Blood Large H (NEGATIVE) Urine Nitrite Negative (NEGATIVE) Urine Bilirubin Negative (NEGATIVE) Urine Urobilinogen 0.2 (0.2-1.0) E.U./dL Ur Leukocyte Esterase Negative (NEGATIVE) Urine RBC 10-20 H /HPF Urine WBC 10-20 H /HPF Ur Epithelial Cells Few /LPF Urine Bacteria Many H (NONE TO FEW) /HPF SARS-CoV-2 RNA (BETY) Negative (NEGATIVE) 06/24/21 06/24/21 06/25/21 Range/Units 23:15 23:15 04:00 WBC 15.5 H (4.0-10.2) K/uL RBC 3.59 L (3.77-5.09) M/uL Hgb 11.0 L (11.7-15.5) g/dL Hct 33.9 L (34.0-46.0) % MCV 94.4 (84.0-98.0) fL MCH 30.6 (28.2-33.3) pg MCHC 32.4 (31.7-36.0) g/dL RDW 15.0 H (11.2-14.1) % Plt Count 117 L (150-350) K/uL Neut % (Auto) 93.5 H (45.0-80.0) % Lymph % (Auto) 2.5 L (10.0-50.0) % [place] % (Auto) 3.9 (2.0-14.0) % Eos % (Auto) 0.0 (0.0-5.0) % Baso % (Auto) 0.1 (0.0-2.0) % Neut # (Auto) 14.47 H (1.40-7.00) K/uL Lymph # (Auto) 0.38 L (0.50-3.50) K/uL [place] # (Auto) 0.60 (0.00-1.00) K/uL Eos # (Auto) 0.00 (0.00-0.50) K/uL Baso # (Auto) 0.02 (0.00-0.20) K/uL PT (9.5-12.0) SEC INR APTT (24.5-32.8) SEC Sodium (136-145) mmol/L Potassium (3.5-5.1) mmol/L Chloride (98-107) mmol/L Carbon Dioxide (21.0-32.0) mmol/L Anion Gap (7-15) meq/L BUN (7-18) mg/dL Creatinine (0.51-1.17) mg/dL Est Cr Clr Drug Dosing mL/min Estimated GFR (MDRD) mL/min Glucose (70-99) mg/dL Lactic Acid 1.4 (0.4-2.0) mmol/L Calcium (8.5-10.1) mg/dL Magnesium (1.8-2.4) mg/dL Total Bilirubin (0.2-1.0) mg/dL AST (15-37) U/L ALT (12-78) U/L Alkaline Phosphatase (46-116) IU/L Troponin I High Sens 1065 H* (<=51) ng/L C-Reactive Protein (<=0.9) mg/dL Total Protein (6.4-8.2) g/dL Albumin (3.4-5.0) g/dL Specimen Type Urine Color Urine Appearance Urine pH (5.0-9.0) Ur Specific [place] (1.005-1.030) Urine Protein (NEGATIVE) mg/dL Urine Glucose (UA) (NEGATIVE) mg/dL Urine Ketones (NEGATIVE) mg/dL Urine Occult Blood (NEGATIVE) Urine Nitrite (NEGATIVE) Urine Bilirubin (NEGATIVE) Urine Urobilinogen (0.2-1.0) E.U./dL Ur Leukocyte Esterase (NEGATIVE) Urine RBC /HPF Urine WBC /HPF Ur Epithelial Cells /LPF Urine Bacteria (NONE TO FEW) /HPF SARS-CoV-2 RNA (BETY) (NEGATIVE) 06/25/21 Range/Units 04:30 WBC (4.0-10.2) K/uL RBC (3.77-5.09) M/uL Hgb (11.7-15.5) g/dL Hct (34.0-46.0) % MCV (84.0-98.0) fL MCH (28.2-33.3) pg MCHC (31.7-36.0) g/dL RDW (11.2-14.1) % Plt Count (150-350) K/uL Neut % (Auto) (45.0-80.0) % Lymph % (Auto) (10.0-50.0) % [place] % (Auto) (2.0-14.0) % Eos % (Auto) (0.0-5.0) % Baso % (Auto) (0.0-2.0) % Neut # (Auto) (1.40-7.00) K/uL Lymph # (Auto) (0.50-3.50) K/uL [place] # (Auto) (0.00-1.00) K/uL Eos # (Auto) (0.00-0.50) K/uL Baso # (Auto) (0.00-0.20) K/uL PT (9.5-12.0) SEC INR APTT (24.5-32.8) SEC Sodium 141 (136-145) mmol/L Potassium 3.7 (3.5-5.1) mmol/L Chloride 108 H (98-107) mmol/L Carbon Dioxide 24.4 (21.0-32.0) mmol/L Anion Gap 12.3 (7-15) meq/L BUN 23 H (7-18) mg/dL Creatinine 1.21 H (0.51-1.17) mg/dL Est Cr Clr Drug Dosing 28.68 mL/min Estimated GFR (MDRD) 42 mL/min Glucose 129 H (70-99) mg/dL Lactic Acid (0.4-2.0) mmol/L Calcium 8.8 (8.5-10.1) mg/dL Magnesium 3.4 H (1.8-2.4) mg/dL Total Bilirubin (0.2-1.0) mg/dL AST (15-37) U/L ALT (12-78) U/L Alkaline Phosphatase (46-116) IU/L Troponin I High Sens 1097 H* (<=51) ng/L C-Reactive Protein (<=0.9) mg/dL Total Protein (6.4-8.2) g/dL Albumin (3.4-5.0) g/dL Specimen Type Urine Color Urine Appearance Urine pH (5.0-9.0) Ur Specific [place] (1.005-1.030) Urine Protein (NEGATIVE) mg/dL Urine Glucose (UA) (NEGATIVE) mg/dL Urine Ketones (NEGATIVE) mg/dL Urine Occult Blood (NEGATIVE) Urine Nitrite (NEGATIVE) Urine Bilirubin (NEGATIVE) Urine Urobilinogen (0.2-1.0) E.U./dL Ur Leukocyte Esterase (NEGATIVE) Urine RBC /HPF Urine WBC /HPF Ur Epithelial Cells /LPF Urine Bacteria (NONE TO FEW) /HPF SARS-CoV-2 RNA (BETY) (NEGATIVE) Result Diagrams: 06/25/21 04:00 06/25/21 04:30 [place] Results Last 24 hrs: Microbiology 06/24/21 20:50 Stool Occult Blood (OSITO) - Final Stool / Feces NEGATIVE OCCULT BLOOD REFERENCE RANGE: NEGATIVE Sepsis Event Note - Evaluation Sepsis Screening Result: Possible Sepsis Risk - Focused Exam Vital Signs: Vital Signs Temp Temp Pulse Resp BP Pulse Ox 06/25/21 08:00 36.6 C 73 16 111/57 L 95 06/25/21 03:43 36.1 C 73 21 H 120/50 L 92 L - Problem List & Annotations (1) Non-ST elevation MS (NSTEMI) SNOMED Code(s): 72091526 Code(s): I21.4 - NON-ST ELEVATION (NSTEMI) MYOCARDIAL INFARCTION Status: Acute Current Visit: Yes Annotation/Comment:: -Troponin elevated in ER last night at 91. It was followed at 3 hours and 6 hours and levels rising, 1065 & 1097, respectively. -Denies any chest pain -Has been in a Sinus Rhythym with 1st Degree AV Block -Patient remains a full code -She is on the list at [facility] for transfer when a bed comes available today. (2) Elevated lactic acid level SNOMED Code(s): 0312317 Code(s): R79.89 - OTHER SPECIFIED ABNORMAL FINDINGS OF BLOOD CHEMISTRY Status: Acute Current Visit: Yes Annotation/Comment:: -Presented with low grade fever and Lactic Acid=4.3 on admit to ER. -Sepsis protocol strarted, fluids and Ceftriaxone given -Vitals stable and no hypotension noted -Suspect UTI as cause of fever -Urine Cx pending, but will continue Ceftriaxone 1gm q 24 hours (3) Fever SNOMED Code(s): 376106972 Code(s): R50.9 - FEVER, UNSPECIFIED Status: Acute Current Visit: Yes Qualifiers: Fever type: unspecified Qualified Code(s): R50.9 - Fever, unspecified Annotation/Comment:: -Per report prior to arrival to the ER, seems to be resolved now -As noted above, suspect UTI as cause (4) Hypokalemia SNOMED Code(s): 68352924 Code(s): E87.6 - HYPOKALEMIA Status: Acute Priority: High Current Visit: No Onset Date: 03/19/20 Annotation/Comment:: -Potassium 3.0 in ER, patient received Potassium 10mEq x 6 through the night and now potassium is corrected. -Remains on tele, no issues. (5) Hypomagnesemia SNOMED Code(s): 980878435 Code(s): E83.42 - HYPOMAGNESEMIA Status: Acute Priority: High Current Visit: No Onset Date: 03/19/20 Annotation/Comment:: -History of hypomagnesia in the past with severe hypomagnesemia last night. -Received MagSulfate IV infusion last night and now seems to have over- corrected. -AM Mag=3.7 -Recheck Mag level at 1200 today (6) Renal insufficiency SNOMED Code(s): 840637017, 937640084 Code(s): N28.9 - DISORDER OF KIDNEY AND URETER, UNSPECIFIED Status: Chronic Priority: Medium Current Visit: No Annotation/Comment:: -BUN=23, Alining Inspector=1.21, both imrpoved after IV fluids over night. -Continue NS @ 100ml/hr - Problem List Review Problem List Initiated/Reviewed/Updated: Yes - My Orders Last 24 Hours: My Active Orders 06/24/21 19:54 CULTURE BLOOD [BC] Stat 06/24/21 20:05 Chest 1V Frontal [CR] Stat Sodium Chloride 0.9% [Saline Flush] 10 ml FLUSH ASDIRECTED PRN Saline Lock Insert [OM.PC] Stat 06/24/21 20:30 Sodium Chloride 0.9% [Normal Saline] 1,000 ml IV ASDIRECTED 06/24/21 20:50 CULTURE URINE [RM] Routine 06/24/21 21:30 Sodium Chloride 0.9% [Normal Saline] 500 ml IV .BOLUS 06/24/21 21:43 Patient Status [ADT] Routine 06/24/21 21:50 Cardiac Monitoring [RC] Q2HR Oxygen Therapy [RC] 2300 Up With Assistance [RC] ASDIRECTED Vital Signs [RC] Q4HR Acetaminophen [TylenoL] 650 mg PO Q4H PRN Ondansetron [Zofran ODT] 4 mg PO Q4H PRN Resuscitation Status Routine 06/24/21 22:02 Medication Administration Instruction [OM.PC] Routine 06/25/21 09:54 Communication Order [RC] STAT 06/25/21 10:00 cefTRIAXone [Rocephin] 1 gm IVPUSH Q24H 06/25/21 Lunch Clear Liquid Diet [DIET] 06/25/21 12:00 BASIC METABOLIC PANEL,BMP [CHEM] Timed MAGNESIUM [CHEM] Timed TROPONIN I HIGH SENSITIVITY [CHEM] Timed - Plan Plan:: -Will plan transfer to [facility] when bed available
[2021-06-25] MEDS ORDERED: amLODIPine 5 MG Tab PO SCH (10:45)
[2021-06-25] MEDS: cefTRIAXone 1 GM in Sodium Chloride 0.9% 100 ML IV SCH (10:52)
[2021-06-25] MEDS: Sodium Chloride 0.9% 1,000 ML IV SCH ×2 (10:53→21:31)
[2021-06-25] MEDS ORDERED: Lisinopril 20 MG Tab PO SCH (11:00)
[2021-06-25] MEDS: Levothyroxine 25 MCG Tab PO SCH (12:17)
[2021-06-25] MEDS: TIMOLOL MALEATE EYEBOTH SCH ×2 (12:18→18:43)
[2021-06-25] MEDS: DORZOLAMIDE HCL EYEBOTH SCH ×2 (12:18→18:43)
[2021-06-25 13:17] LABS: ANION GAP 9.4 meq/L (7-15)
--- NOTE | 2021-06-25 13:52 | PCM.PN ---
- General Info Date of Service: 06/25/21 Admission Dx/Problem (Free Text): 1)NSTEMI 2)Fever 3)Electrolyte Imbalance Subjective Update: Still unable to get patient transferred to [facility] due to high census and bed availability. MANAGER CONTENT consulted Dr Margarita Potts at the [facility] here in [place] her recommendations. - Review of Systems General: Reports: No Symptoms HEENT: Reports: No Symptoms Pulmonary: Reports: No Symptoms Cardiovascular: Reports: No Symptoms Gastrointestinal: Reports: No Symptoms Genitourinary: Reports: No Symptoms Musculoskeletal: Reports: No Symptoms Skin: Reports: No Symptoms Neurological: Reports: No Symptoms Psychiatric: Reports: No Symptoms - Patient Data Vitals - Most Recent: Last Vital Signs Temp 36.6 C 06/25/21 08:00 Pulse 73 06/25/21 08:00 Resp 16 06/25/21 08:00 BP 111/57 L 06/25/21 08:00 Pulse Ox 95 06/25/21 08:00 Weight - Most Recent: 54.431 kg I&O - Last 24 Hours: Intake & Output 06/24/21 06/25/21 06/25/21 22:59 06:59 14:59 Intake Total 1947 Balance 194 Lab Results Last 24 Hours: Laboratory Results - last 24 hr 06/24/21 06/24/21 06/24/21 Range/Units 19:54 19:54 19:54 WBC 2.8 L (4.0-10.2) K/uL RBC 3.96 (3.77-5.09) M/uL Hgb 12.1 (11.7-15.5) g/dL Hct 36.8 (34.0-46.0) % MCV 92.9 (84.0-98.0) fL MCH 30.6 (28.2-33.3) pg MCHC 32.9 (31.7-36.0) g/dL RDW 14.9 H (11.2-14.1) % Plt Count 129 L (150-350) K/uL Neut % (Auto) 89.2 H (45.0-80.0) % Lymph % (Auto) 9.3 L (10.0-50.0) % Dawson % (Auto) 0.7 L (2.0-14.0) % Eos % (Auto) 0.4 (0.0-5.0) % Baso % (Auto) 0.4 (0.0-2.0) % Neut # (Auto) 2.50 (1.40-7.00) K/uL Lymph # (Auto) 0.26 L (0.50-3.50) K/uL Dawson # (Auto) 0.02 (0.00-1.00) K/uL Eos # (Auto) 0.01 (0.00-0.50) K/uL Baso # (Auto) 0.01 (0.00-0.20) K/uL PT 10.7 (9.5-12.0) SEC INR 1.1 APTT 27.7 (24.5-32.8) SEC Sodium 140 (136-145) mmol/L Potassium 3.0 L (3.5-5.1) mmol/L Chloride 104 (98-107) mmol/L Carbon Dioxide 20.2 L (21.0-32.0) mmol/L Anion Gap 18.8 H (7-15) meq/L BUN 25 H (7-18) mg/dL Creatinine 1.31 H (0.51-1.17) mg/dL Est Cr Clr Drug Dosing 26.49 mL/min Estimated GFR (MDRD) 38 mL/min Glucose 131 H (70-99) mg/dL Lactic Acid (0.4-2.0) mmol/L Calcium 9.0 (8.5-10.1) mg/dL Magnesium 1.5 L (1.8-2.4) mg/dL Total Bilirubin 1.3 H (0.2-1.0) mg/dL AST 22 (15-37) U/L ALT 23 (12-78) U/L Alkaline Phosphatase 156 H (46-116) IU/L Troponin I High Sens 95 H* (<=51) ng/L C-Reactive Protein 11.7 H (<=0.9) mg/dL Total Protein 7.3 (6.4-8.2) g/dL Albumin 3.4 (3.4-5.0) g/dL Specimen Type Urine Color Urine Appearance Urine pH (5.0-9.0) Ur Specific Clement[place] (1.005-1.030) Urine Protein (NEGATIVE) mg/dL Urine Glucose (UA) (NEGATIVE) mg/dL Urine Ketones (NEGATIVE) mg/dL Urine Occult Blood (NEGATIVE) Urine Nitrite (NEGATIVE) Urine Bilirubin (NEGATIVE) Urine Urobilinogen (0.2-1.0) E.U./dL Ur Leukocyte Esterase (NEGATIVE) Urine RBC /HPF Urine WBC /HPF Ur Epithelial Cells /LPF Urine Bacteria (NONE TO FEW) /HPF SARS-CoV-2 RNA (BETY) (NEGATIVE) 06/24/21 06/24/21 06/24/21 Range/Units 19:54 20:06 20:06 WBC (4.0-10.2) K/uL RBC (3.77-5.09) M/uL Hgb (11.7-15.5) g/dL Hct (34.0-46.0) % MCV (84.0-98.0) fL MCH (28.2-33.3) pg MCHC (31.7-36.0) g/dL RDW (11.2-14.1) % Plt Count (150-350) K/uL Neut % (Auto) (45.0-80.0) % Lymph % (Auto) (10.0-50.0) % Dawson % (Auto) (2.0-14.0) % Eos % (Auto) (0.0-5.0) % Baso % (Auto) (0.0-2.0) % Neut # (Auto) (1.40-7.00) K/uL Lymph # (Auto) (0.50-3.50) K/uL Dawson # (Auto) (0.00-1.00) K/uL Eos # (Auto) (0.00-0.50) K/uL Baso # (Auto) (0.00-0.20) K/uL PT (9.5-12.0) SEC INR APTT (24.5-32.8) SEC Sodium (136-145) mmol/L Potassium (3.5-5.1) mmol/L Chloride (98-107) mmol/L Carbon Dioxide (21.0-32.0) mmol/L Anion Gap (7-15) meq/L BUN (7-18) mg/dL Creatinine (0.51-1.17) mg/dL Est Cr Clr Drug Dosing mL/min Estimated GFR (MDRD) mL/min Glucose (70-99) mg/dL Lactic Acid 4.3 H (0.4-2.0) mmol/L Calcium (8.5-10.1) mg/dL Magnesium (1.8-2.4) mg/dL Total Bilirubin (0.2-1.0) mg/dL AST (15-37) U/L ALT (12-78) U/L Alkaline Phosphatase (46-116) IU/L Troponin I High Sens (<=51) ng/L C-Reactive Protein (<=0.9) mg/dL Total Protein (6.4-8.2) g/dL Albumin (3.4-5.0) g/dL Specimen Type Urincc Urine Color Yellow Urine Appearance Clear Urine pH 6.0 (5.0-9.0) Ur Specific Clement[place] 1.020 (1.005-1.030) Urine Protein >=300 H (NEGATIVE) mg/dL Urine Glucose (UA) Negative (NEGATIVE) mg/dL Urine Ketones Negative (NEGATIVE) mg/dL Urine Occult Blood Large H (NEGATIVE) Urine Nitrite Negative (NEGATIVE) Urine Bilirubin Negative (NEGATIVE) Urine Urobilinogen 0.2 (0.2-1.0) E.U./dL Ur Leukocyte Esterase Negative (NEGATIVE) Urine RBC 10-20 H /HPF Urine WBC 10-20 H /HPF Ur Epithelial Cells Few /LPF Urine Bacteria Many H (NONE TO FEW) /HPF SARS-CoV-2 RNA (BETY) Negative (NEGATIVE) 06/24/21 06/24/21 06/25/21 Range/Units 23:15 23:15 04:00 WBC 15.5 H (4.0-10.2) K/uL RBC 3.59 L (3.77-5.09) M/uL Hgb 11.0 L (11.7-15.5) g/dL Hct 33.9 L (34.0-46.0) % MCV 94.4 (84.0-98.0) fL MCH 30.6 (28.2-33.3) pg MCHC 32.4 (31.7-36.0) g/dL RDW 15.0 H (11.2-14.1) % Plt Count 117 L (150-350) K/uL Neut % (Auto) 93.5 H (45.0-80.0) % Lymph % (Auto) 2.5 L (10.0-50.0) % Dawson % (Auto) 3.9 (2.0-14.0) % Eos % (Auto) 0.0 (0.0-5.0) % Baso % (Auto) 0.1 (0.0-2.0) % Neut # (Auto) 14.47 H (1.40-7.00) K/uL Lymph # (Auto) 0.38 L (0.50-3.50) K/uL Dawson # (Auto) 0.60 (0.00-1.00) K/uL Eos # (Auto) 0.00 (0.00-0.50) K/uL Baso # (Auto) 0.02 (0.00-0.20) K/uL PT (9.5-12.0) SEC INR APTT (24.5-32.8) SEC Sodium (136-145) mmol/L Potassium (3.5-5.1) mmol/L Chloride (98-107) mmol/L Carbon Dioxide (21.0-32.0) mmol/L Anion Gap (7-15) meq/L BUN (7-18) mg/dL Creatinine (0.51-1.17) mg/dL Est Cr Clr Drug Dosing mL/min Estimated GFR (MDRD) mL/min Glucose (70-99) mg/dL Lactic Acid 1.4 (0.4-2.0) mmol/L Calcium (8.5-10.1) mg/dL Magnesium (1.8-2.4) mg/dL Total Bilirubin (0.2-1.0) mg/dL AST (15-37) U/L ALT (12-78) U/L Alkaline Phosphatase (46-116) IU/L Troponin I High Sens 1065 H* (<=51) ng/L C-Reactive Protein (<=0.9) mg/dL Total Protein (6.4-8.2) g/dL Albumin (3.4-5.0) g/dL Specimen Type Urine Color Urine Appearance Urine pH (5.0-9.0) Ur Specific Clement[place] (1.005-1.030) Urine Protein (NEGATIVE) mg/dL Urine Glucose (UA) (NEGATIVE) mg/dL Urine Ketones (NEGATIVE) mg/dL Urine Occult Blood (NEGATIVE) Urine Nitrite (NEGATIVE) Urine Bilirubin (NEGATIVE) Urine Urobilinogen (0.2-1.0) E.U./dL Ur Leukocyte Esterase (NEGATIVE) Urine RBC /HPF Urine WBC /HPF Ur Epithelial Cells /LPF Urine Bacteria (NONE TO FEW) /HPF SARS-CoV-2 RNA (BETY) (NEGATIVE) 06/25/21 06/25/21 Range/Units 04:30 12:40 WBC (4.0-10.2) K/uL RBC (3.77-5.09) M/uL Hgb (11.7-15.5) g/dL Hct (34.0-46.0) % MCV (84.0-98.0) fL MCH (28.2-33.3) pg MCHC (31.7-36.0) g/dL RDW (11.2-14.1) % Plt Count (150-350) K/uL Neut % (Auto) (45.0-80.0) % Lymph % (Auto) (10.0-50.0) % Dawson % (Auto) (2.0-14.0) % Eos % (Auto) (0.0-5.0) % Baso % (Auto) (0.0-2.0) % Neut # (Auto) (1.40-7.00) K/uL Lymph # (Auto) (0.50-3.50) K/uL Dawson # (Auto) (0.00-1.00) K/uL Eos # (Auto) (0.00-0.50) K/uL Baso # (Auto) (0.00-0.20) K/uL PT (9.5-12.0) SEC INR APTT (24.5-32.8) SEC Sodium 141 141 (136-145) mmol/L Potassium 3.7 3.9 (3.5-5.1) mmol/L Chloride 108 H 109 H (98-107) mmol/L Carbon Dioxide 24.4 26.5 (21.0-32.0) mmol/L Anion Gap 12.3 9.4 (7-15) meq/L BUN 23 H 22 H (7-18) mg/dL Creatinine 1.21 H 1.25 H (0.51-1.17) mg/dL Est Cr Clr Drug Dosing 28.68 27.76 mL/min Estimated GFR (MDRD) 42 41 mL/min Glucose 129 H 129 H (70-99) mg/dL Lactic Acid (0.4-2.0) mmol/L Calcium 8.8 8.8 (8.5-10.1) mg/dL Magnesium 3.4 H 2.9 H (1.8-2.4) mg/dL Total Bilirubin (0.2-1.0) mg/dL AST (15-37) U/L ALT (12-78) U/L Alkaline Phosphatase (46-116) IU/L Troponin I High Sens 1097 H* 793 H* (<=51) ng/L C-Reactive Protein (<=0.9) mg/dL Total Protein (6.4-8.2) g/dL Albumin (3.4-5.0) g/dL Specimen Type Urine Color Urine Appearance Urine pH (5.0-9.0) Ur Specific Clementon (1.005-1.030) Urine Protein (NEGATIVE) mg/dL Urine Glucose (UA) (NEGATIVE) mg/dL Urine Ketones (NEGATIVE) mg/dL Urine Occult Blood (NEGATIVE) Urine Nitrite (NEGATIVE) Urine Bilirubin (NEGATIVE) Urine Urobilinogen (0.2-1.0) E.U./dL Ur Leukocyte Esterase (NEGATIVE) Urine RBC /HPF Urine WBC /HPF Ur Epithelial Cells /LPF Urine Bacteria (NONE TO FEW) /HPF SARS-CoV-2 RNA (BETY) (NEGATIVE) [place] Results Last 24 Hours: Microbiology 06/24/21 19:54 Aerobic Blood Culture - Preliminary Blood - Venous Gram Negative Rods 06/24/21 20:50 Stool Occult Blood (OSITO) - Final Stool / Feces NEGATIVE OCCULT BLOOD REFERENCE RANGE: NEGATIVE Med Orders - Current: Current Medications Acetaminophen (Acetaminophen 325 Mg Tab) 650 mg PO Q4H PRN PRN Reason: Pain (Mild 1-3)/fever Last Admin: 06/25/21 00:33 Dose: 650 mg Documented by: Apixaban (Apixaban 2.5 Mg Tab) 2.5 mg PO BID DARI Atorvastatin Calcium (Atorvastatin 40 Mg Tab) 40 mg PO BEDTIME DARI Cholecalciferol (Cholecalciferol (Vitamin D3) 5,000 Unit Tab) unit PO DAILY [facility] Famotidine (Famotidine 20 Mg Tab) 20 mg PO BEDTIME [facility] Fluticasone Propionate (Fluticasone Propionate Nasal [place] 16 Gm Bottle) gm NASBOTH DAILY [facility] Sodium Chloride (Normal Saline) 1,000 mls @ 100 mls/hr IV ASDIRECTED DARI Last Admin: 06/25/21 10:53 Dose: 100 mls/hr Documented by: Sodium Chloride (Normal Saline) 500 mls @ 500 mls/hr IV .BOLUS [facility] Last Admin: 06/24/21 23:07 Dose: 500 mls/hr Documented by: Ceftriaxone Sodium 1 gm/ (Sodium Chloride) 100 mls @ 200 mls/hr IV Q24H [facility] Last Admin: 06/25/21 10:52 Dose: 200 mls/hr Documented by: Levothyroxine Sodium (Levothyroxine 25 Mcg Tab) 25 mcg PO DAILY [facility] Last Admin: 06/25/21 12:17 Dose: 25 mcg Documented by: Magnesium Oxide (Magnesium Oxide 400 Mg Tab) 200 mg PO DAILY [facility] Dorzolamide Hcl/Timolol Maleate 22. 3mg-6.8mg/Ml 1 drop EYEBOTH BID [facility] Last Admin: 06/25/21 12:18 Dose: 1 drop Documented by: Ondansetron HCl (Ondansetron 4 Mg Tab.Dis) 4 mg PO Q4H PRN PRN Reason: Nausea/Vomiting Sertraline HCl (Sertraline 50 Mg Tab) 100 mg PO DAILY [facility] Sodium Chloride (Sodium Chloride 0.9% 10 Ml Syringe) 10 ml FLUSH ASDIRECTED PRN PRN Reason: Keep Vein Open Last Admin: 06/24/21 20:11 Dose: 10 ml Documented by: Discontinued Medications Amlodipine Besylate (Amlodipine 5 Mg Tab) 10 mg PO DAILY [facility] Last Admin: 06/25/21 12:26 Dose: Not Given Documented by: Ceftriaxone Sodium (Ceftriaxone 1 Gm Vial) 1 gm IVPUSH STAT ONE Stop: 06/24/21 21:38 Last Admin: 06/24/21 23:07 Dose: 1 gm Documented by: Clonidine HCl (Clonidine 0.1 Mg Tab) 0.1 mg PO BEDTIME [facility] Hydralazine HCl (Hydralazine 50 Mg Tab) 25 mg PO BID [facility] Potassium Chloride 10 meq/ (Premix) 50 mls @ 50 mls/hr IV Q1H [facility] Stop: 06/25/21 04:29 Last Admin: 06/25/21 04:42 Dose: 50 mls/hr Documented by: Magnesium Sulfate 2 gm/ Premix 50 mls @ 25 mls/hr IV Q1H DARI Stop: 06/25/21 01:29 Last Admin: 06/25/21 02:54 Dose: 25 mls/hr Documented by: Lisinopril (Lisinopril 20 Mg Tab) 20 mg PO BID DARI Ondansetron HCl (Ondansetron 4 Mg/2 Ml Sdv) 4 mg IVPUSH ONETIME ONE Stop: 06/24/21 20:08 Last Admin: 06/24/21 20:11 Dose: 4 mg Documented by: - Patient Data Lab Results Last 24 hrs: Laboratory Results - last 24 hr 06/24/21 06/24/21 06/24/21 Range/Units 19:54 19:54 19:54 WBC 2.8 L (4.0-10.2) K/uL RBC 3.96 (3.77-5.09) M/uL Hgb 12.1 (11.7-15.5) g/dL Hct 36.8 (34.0-46.0) % MCV 92.9 (84.0-98.0) fL MCH 30.6 (28.2-33.3) pg MCHC 32.9 (31.7-36.0) g/dL RDW 14.9 H (11.2-14.1) % Plt Count 129 L (150-350) K/uL Neut % (Auto) 89.2 H (45.0-80.0) % Lymph % (Auto) 9.3 L (10.0-50.0) % Dawson % (Auto) 0.7 L (2.0-14.0) % Eos % (Auto) 0.4 (0.0-5.0) % Baso % (Auto) 0.4 (0.0-2.0) % Neut # (Auto) 2.50 (1.40-7.00) K/uL Lymph # (Auto) 0.26 L (0.50-3.50) K/uL Dawson # (Auto) 0.02 (0.00-1.00) K/uL Eos # (Auto) 0.01 (0.00-0.50) K/uL Baso # (Auto) 0.01 (0.00-0.20) K/uL PT 10.7 (9.5-12.0) SEC INR 1.1 APTT 27.7 (24.5-32.8) SEC Sodium 140 (136-145) mmol/L Potassium 3.0 L (3.5-5.1) mmol/L Chloride 104 (98-107) mmol/L Carbon Dioxide 20.2 L (21.0-32.0) mmol/L Anion Gap 18.8 H (7-15) meq/L BUN 25 H (7-18) mg/dL Creatinine 1.31 H (0.51-1.17) mg/dL Est Cr Clr Drug Dosing 26.49 mL/min Estimated GFR (MDRD) 38 mL/min Glucose 131 H (70-99) mg/dL Lactic Acid (0.4-2.0) mmol/L Calcium 9.0 (8.5-10.1) mg/dL Magnesium 1.5 L (1.8-2.4) mg/dL Total Bilirubin 1.3 H (0.2-1.0) mg/dL AST 22 (15-37) U/L ALT 23 (12-78) U/L Alkaline Phosphatase 156 H (46-116) IU/L Troponin I High Sens 95 H* (<=51) ng/L C-Reactive Protein 11.7 H (<=0.9) mg/dL Total Protein 7.3 (6.4-8.2) g/dL Albumin 3.4 (3.4-5.0) g/dL Specimen Type Urine Color Urine Appearance Urine pH (5.0-9.0) Ur Specific [place] (1.005-1.030) Urine Protein (NEGATIVE) mg/dL Urine Glucose (UA) (NEGATIVE) mg/dL Urine Ketones (NEGATIVE) mg/dL Urine Occult Blood (NEGATIVE) Urine Nitrite (NEGATIVE) Urine Bilirubin (NEGATIVE) Urine Urobilinogen (0.2-1.0) E.U./dL Ur Leukocyte Esterase (NEGATIVE) Urine RBC /HPF Urine WBC /HPF Ur Epithelial Cells /LPF Urine Bacteria (NONE TO FEW) /HPF SARS-CoV-2 RNA (BETY) (NEGATIVE) 06/24/21 06/24/2121 Range/Units 19:54 20:06 20:06 WBC (4.0-10.2) K/uL RBC (3.77-5.09) M/uL Hgb (11.7-15.5) g/dL Hct (34.0-46.0) % MCV (84.0-98.0) fL MCH (28.2-33.3) pg MCHC (31.7-36.0) g/dL RDW (11.2-14.1) % Plt Count (150-350) K/uL Neut % (Auto) (45.0-80.0) % Lymph % (Auto) (10.0-50.0) % Dawson % (Auto) (2.0-14.0) % Eos % (Auto) (0.0-5.0) % Baso % (Auto) (0.0-2.0) % Neut # (Auto) (1.40-7.00) K/uL Lymph # (Auto) (0.50-3.50) K/uL Dawson # (Auto) (0.00-1.00) K/uL Eos # (Auto) (0.00-0.50) K/uL Baso # (Auto) (0.00-0.20) K/uL PT (9.5-12.0) SEC INR APTT (24.5-32.8) SEC Sodium (136-145) mmol/L Potassium (3.5-5.1) mmol/L Chloride (98-107) mmol/L Carbon Dioxide (21.0-32.0) mmol/L Anion Gap (7-15) meq/L BUN (7-18) mg/dL Creatinine (0.51-1.17) mg/dL Est Cr Clr Drug Dosing mL/min Estimated GFR (MDRD) mL/min Glucose (70-99) mg/dL Lactic Acid 4.3 H (0.4-2.0) mmol/L Calcium (8.5-10.1) mg/dL Magnesium (1.8-2.4) mg/dL Total Bilirubin (0.2-1.0) mg/dL AST (15-37) U/L ALT (12-78) U/L Alkaline Phosphatase (46-116) IU/L Troponin I High Sens (<=51) ng/L C-Reactive Protein (<=0.9) mg/dL Total Protein (6.4-8.2) g/dL Albumin (3.4-5.0) g/dL Specimen Type Urincc Urine Color Yellow Urine Appearance Clear Urine pH 6.0 (5.0-9.0) Ur Specific [place] 1.020 (1.005-1.030) Urine Protein >=300 H (NEGATIVE) mg/dL Urine Glucose (UA) Negative (NEGATIVE) mg/dL Urine Ketones Negative (NEGATIVE) mg/dL Urine Occult Blood Large H (NEGATIVE) Urine Nitrite Negative (NEGATIVE) Urine Bilirubin Negative (NEGATIVE) Urine Urobilinogen 0.2 (0.2-1.0) E.U./dL Ur Leukocyte Esterase Negative (NEGATIVE) Urine RBC 10-20 H /HPF Urine WBC 10-20 H /HPF Ur Epithelial Cells Few /LPF Urine Bacteria Many H (NONE TO FEW) /HPF SARS-CoV-2 RNA (BETY) Negative (NEGATIVE) 06/24/21 06/24/21 06/25/21 Range/Units 23:15 23:15 04:00 WBC 15.5 H (4.0-10.2) K/uL RBC 3.59 L (3.77-5.09) M/uL Hgb 11.0 L (11.7-15.5) g/dL Hct 33.9 L (34.0-46.0) % MCV 94.4 (84.0-98.0) fL MCH 30.6 (28.2-33.3) pg MCHC 32.4 (31.7-36.0) g/dL RDW 15.0 H (11.2-14.1) % Plt Count 117 L (150-350) K/uL Neut % (Auto) 93.5 H (45.0-80.0) % Lymph % (Auto) 2.5 L (10.0-50.0) % Dawson % (Auto) 3.9 (2.0-14.0) % Eos % (Auto) 0.0 (0.0-5.0) % Baso % (Auto) 0.1 (0.0-2.0) % Neut # (Auto) 14.47 H (1.40-7.00) K/uL Lymph # (Auto) 0.38 L (0.50-3.50) K/uL Dawson # (Auto) 0.60 (0.00-1.00) K/uL Eos # (Auto) 0.00 (0.00-0.50) K/uL Baso # (Auto) 0.02 (0.00-0.20) K/uL PT (9.5-12.0) SEC INR APTT (24.5-32.8) SEC Sodium (136-145) mmol/L Potassium (3.5-5.1) mmol/L Chloride (98-107) mmol/L Carbon Dioxide (21.0-32.0) mmol/L Anion Gap (7-15) meq/L BUN (7-18) mg/dL Creatinine (0.51-1.17) mg/dL Est Cr Clr Drug Dosing mL/min Estimated GFR (MDRD) mL/min Glucose (70-99) mg/dL Lactic Acid 1.4 (0.4-2.0) mmol/L Calcium (8.5-10.1) mg/dL Magnesium (1.8-2.4) mg/dL Total Bilirubin (0.2-1.0) mg/dL AST (15-37) U/L ALT (12-78) U/L Alkaline Phosphatase (46-116) IU/L Troponin I High Sens 1065 H* (<=51) ng/L C-Reactive Protein (<=0.9) mg/dL Total Protein (6.4-8.2) g/dL Albumin (3.4-5.0) g/dL Specimen Type Urine Color Urine Appearance Urine pH (5.0-9.0) Ur Specific [place] (1.005-1.030) Urine Protein (NEGATIVE) mg/dL Urine Glucose (UA) (NEGATIVE) mg/dL Urine Ketones (NEGATIVE) mg/dL Urine Occult Blood (NEGATIVE) Urine Nitrite (NEGATIVE) Urine Bilirubin (NEGATIVE) Urine Urobilinogen (0.2-1.0) E.U./dL Ur Leukocyte Esterase (NEGATIVE) Urine RBC /HPF Urine WBC /HPF Ur Epithelial Cells /LPF Urine Bacteria (NONE TO FEW) /HPF SARS-CoV-2 RNA (BETY) (NEGATIVE) 06/25/21 06/25/21 Range/Units 04:30 12:40 WBC (4.0-10.2) K/uL RBC (3.77-5.09) M/uL Hgb (11.7-15.5) g/dL Hct (34.0-46.0) % MCV (84.0-98.0) fL MCH (28.2-33.3) pg MCHC (31.7-36.0) g/dL RDW (11.2-14.1) % Plt Count (150-350) K/uL Neut % (Auto) (45.0-80.0) % Lymph % (Auto) (10.0-50.0) % Dawson % (Auto) (2.0-14.0) % Eos % (Auto) (0.0-5.0) % Baso % (Auto) (0.0-2.0) % Neut # (Auto) (1.40-7.00) K/uL Lymph # (Auto) (0.50-3.50) K/uL Dawson # (Auto) (0.00-1.00) K/uL Eos # (Auto) (0.00-0.50) K/uL Baso # (Auto) (0.00-0.20) K/uL PT (9.5-12.0) SEC INR APTT (24.5-32.8) SEC Sodium 141 141 (136-145) mmol/L Potassium 3.7 3.9 (3.5-5.1) mmol/L Chloride 108 H 109 H (98-107) mmol/L Carbon Dioxide 24.4 26.5 (21.0-32.0) mmol/L Anion Gap 12.3 9.4 (7-15) meq/L BUN 23 H 22 H (7-18) mg/dL Creatinine 1.21 H 1.25 H (0.51-1.17) mg/dL Est Cr Clr Drug Dosing 28.68 27.76 mL/min Estimated GFR (MDRD) 42 41 mL/min Glucose 129 H 129 H (70-99) mg/dL Lactic Acid (0.4-2.0) mmol/L Calcium 8.8 8.8 (8.5-10.1) mg/dL Magnesium 3.4 H 2.9 H (1.8-2.4) mg/dL Total Bilirubin (0.2-1.0) mg/dL AST (15-37) U/L ALT (12-78) U/L Alkaline Phosphatase (46-116) IU/L Troponin I High Sens 1097 H* 793 H* (<=51) ng/L C-Reactive Protein (<=0.9) mg/dL Total Protein (6.4-8.2) g/dL Albumin (3.4-5.0) g/dL Specimen Type Urine Color Urine Appearance Urine pH (5.0-9.0) Ur Specific [place] (1.005-1.030) Urine Protein (NEGATIVE) mg/dL Urine Glucose (UA) (NEGATIVE) mg/dL Urine Ketones (NEGATIVE) mg/dL Urine Occult Blood (NEGATIVE) Urine Nitrite (NEGATIVE) Urine Bilirubin (NEGATIVE) Urine Urobilinogen (0.2-1.0) E.U./dL Ur Leukocyte Esterase (NEGATIVE) Urine RBC /HPF Urine WBC /HPF Ur Epithelial Cells /LPF Urine Bacteria (NONE TO FEW) /HPF SARS-CoV-2 RNA (BETY) (NEGATIVE) Result Diagrams: 06/25/21 04:00 06/25/21 12:40 [place] Results Last 24 hrs: Microbiology 06/24/21 19:54 Aerobic Blood Culture - Preliminary Blood - Venous Gram Negative Rods 06/24/21 20:50 Stool Occult Blood (OSITO) - Final Stool / Feces NEGATIVE OCCULT BLOOD REFERENCE RANGE: NEGATIVE Sepsis Event Note - Evaluation Sepsis Screening Result: Possible Sepsis Risk Current Stage of Sepsis: Sepsis Possible Source of Sepsis: Genitourinary - Focused Exam Sepsis Event Note Statement: Focused Sepsis Exam Completed Vital Signs: Vital Signs Temp Temp Pulse Resp BP Pulse Ox 06/25/21 08:00 36.6 C 73 16 111/57 L 95 06/25/21 03:43 36.1 C 73 21 H 120/50 L 92 L Date Exam was Performed: 06/25/21 Time Exam was Performed: 10:00 - Problem List & Annotations (1) Non-ST elevation [place] (NSTEMI) SNOMED Code(s): 83425022 Code(s): I21.4 - NON-ST ELEVATION (NSTEMI) MYOCARDIAL INFARCTION Status: Acute Current Visit: Yes Annotation/Comment:: -Troponin elevated in ER last night at 91. It was followed at 3 hours and 6 hours and levels rising, 1065 & 1097, respectively. Repeat level today at 9053=998, so Troponin has now peaked. -Denies any chest pain -Has been in a Sinus Rhythym with 1st Degree AV Block -After thorough discuss regarding Code Status, patient and her daughter agree t hat she will now be a DNR. -She is on the list at [facility] for transfer when a bed comes available today, pt and her daughter are still desiring transfer to [place] for Cardiology Consultation. (2) Elevated lactic acid level SNOMED Code(s): 2686243 Code(s): R79.89 - OTHER SPECIFIED ABNORMAL FINDINGS OF BLOOD CHEMISTRY Status: Acute Current Visit: Yes Annotation/Comment:: -Presented with low grade fever and Lactic Acid=4.3 on admit to ER. -Sepsis protocol strarted, fluids and Ceftriaxone given -Vitals stable and no hypotension noted -Suspect UTI as cause of fever -Urine Cx pending, but will continue Ceftriaxone 1gm q 24 hours -Daily Blood Cx while admitted here in [place] until negative x 48 hours or patient is transferred, whichever comes first. (3) Fever SNOMED Code(s): 447067640 Code(s): R50.9 - FEVER, UNSPECIFIED Status: Acute Current Visit: Yes Qualifiers: Fever type: unspecified Qualified Code(s): R50.9 - Fever, unspecified Annotation/Comment:: -Per report prior to arrival to the ER, seems to be resolved now -As noted above, suspect UTI as cause (4) Hypokalemia SNOMED Code(s): 18962919 Code(s): E87.6 - HYPOKALEMIA Status: Acute Priority: High Current Visit: No Onset Date: 03/19/20 Annotation/Comment:: -Potassium 3.0 in ER, patient received Potassium 10mEq x 6 through the night and now potassium is corrected. -Remains on tele, no issues. (5) Hypomagnesemia SNOMED Code(s): 448766387 Code(s): E83.42 - HYPOMAGNESEMIA Status: Acute Priority: High Current Visit: No Onset Date: 03/19/20 Annotation/Comment:: -History of hypomagnesia in the past with severe hypomagnesemia last night. -Received MagSulfate IV infusion last night and now seems to have over- corrected. -AM Mag=3.7, repeat Mag at 1200=2.9. Patient is on daily Magnesium, will increase dose. (6) Renal insufficiency SNOMED Code(s): 983397763, 999294991 Code(s): N28.9 - DISORDER OF KIDNEY AND URETER, UNSPECIFIED Status: Chronic Priority: Medium Current Visit: No Annotation/Comment:: -BUN=23, Sleeve Baster=1.21, both imrpoved after IV fluids over night. -Continue NS @ 100ml/hr - Problem List Review Problem List Initiated/Reviewed/Updated: Yes - My Orders Last 24 Hours: My Active Orders 06/24/21 19:54 CULTURE BLOOD [BC] Stat 06/24/21 20:05 Chest 1V Frontal [CR] Stat Sodium Chloride 0.9% [Saline Flush] 10 ml FLUSH ASDIRECTED PRN Saline Lock Insert [OM.PC] Stat 06/24/21 20:30 Sodium Chloride 0.9% [Normal Saline] 1,000 ml IV ASDIRECTED 06/24/21 20:50 CULTURE URINE [RM] Routine 06/24/21 21:30 Sodium Chloride 0.9% [Normal Saline] 500 ml IV .BOLUS 06/24/21 21:43 Patient Status [ADT] Routine 06/24/21 21:50 Cardiac Monitoring [RC] Q2HR Oxygen Therapy [RC] 2300 Up With Assistance [RC] ASDIRECTED Vital Signs [RC] Q4HR Acetaminophen [TylenoL] 650 mg PO Q4H PRN Ondansetron [Zofran ODT] 4 mg PO Q4H PRN 06/24/21 22:02 Medication Administration Instruction [OM.PC] Routine 06/25/21 09:54 Communication Order [RC] STAT 06/25/21 10:00 cefTRIAXone [Rocephin] 1 gm Sodium Chloride 0.9% [Normal Saline] 100 ml IV Q24H 06/25/21 11:00 Levothyroxine 25 mcg PO DAILY 06/25/21 11:15 Dorzolamide HCl/Timolol Maleat [Dorzolamide-Timolol Eye Drops] 1 drop EYEBOTH BID 06/25/21 Lunch Clear Liquid Diet [DIET] 06/25/21 11:55 Blood Culture x2 Reflex Set [OM.PC] Stat 06/25/21 12:40 CULTURE BLOOD [BC] Stat 06/25/21 13:00 CULTURE BLOOD [BC] Stat 06/25/21 13:44 Resuscitation Status Routine 06/25/21 18:00 Apixaban [Eliquis] 2.5 mg PO BID 06/25/21 20:00 Famotidine [Pepcid] 20 mg PO BEDTIME atorvaSTATin [Lipitor] 40 mg PO BEDTIME 06/26/21 08:00 Cholecalciferol (Vitamin D3) [Vitamin D3] DOSE unit PO DAILY Fluticasone Propionate [Flonase] DOSE gm NASBOTH DAILY Magnesium Oxide 200 mg PO DAILY Sertraline [Zoloft] 100 mg PO DAILY - Plan Plan:: -Will plan transfer to [facility] when bed available
[2021-06-25] MEDS ORDERED: hydrALAZINE 50 MG Tab PO SCH (18:00)
[2021-06-25] MEDS: Apixaban 2.5 MG Tab PO SCH (18:43)
[2021-06-25] MEDS ORDERED: atorvaSTATin 40 MG Tab PO SCH (20:00)
[2021-06-25] MEDS ORDERED: cloNIDine 0.1 MG Tab PO SCH (20:00)
[2021-06-25] MEDS ORDERED: Famotidine 20 MG Tab PO SCH (20:00)
--- NOTE | 2021-06-25 20:40 | PCM.SN.2 ---
- Free Text/Narrative Note: S: [employer] contacted [facility]. Patient remains on waiting list for a bed. Will make patient and Acute Inpatient Admission.
[2021-06-26] MEDS: Acetaminophen 325 MG Tab PO PRN (04:16)
[2021-06-26 04:30] VITALS: BP 110/56; PULSE 80
[2021-06-26] MEDS: Sodium Chloride 0.9% 1,000 ML IV SCH (06:58)
[2021-06-26] MEDS ORDERED: Fluticasone Propionate Nasal Spray 16 GM Bottle NASBOTH SCH (08:00)
[2021-06-26] MEDS ORDERED: Cholecalciferol (Vitamin D3) 5,000 UNIT Tab PO SCH (08:00)
[2021-06-26] MEDS ORDERED: Magnesium Oxide 400 MG Tab PO SCH (08:00)
[2021-06-26] MEDS ORDERED: Sertraline 50 MG Tab PO SCH (08:00)
--- NOTE | 2021-06-26 08:19 | PCM.PN ---
- General Info Date of Service: 06/26/21 Admission Dx/Problem (Free Text): 1)NSTEMI 2)Fever 3)Electrolyte Imbalance Subjective Update: Overall doing well this morning. She denies any chest pain or tightness. No shortness of breath. No abdominal pain. Plan was to transfer to [facility] for cardiac consult yesterday, but as of last night no beds available. No fever or chills. No nausea or vomiting. - Review of Systems General: Denies: Fever, Chills Pulmonary: Denies: Shortness of Breath, Cough Cardiovascular: Denies: Chest Pain, Palpitations Gastrointestinal: Denies: Abdominal Pain, Nausea, Vomiting - Patient Data Vitals - Most Recent: Last Vital Signs Temp 37.5 C 06/26/21 04:00 Pulse 80 06/26/21 04:00 Resp 18 06/26/21 04:00 BP 110/56 L 06/26/21 04:00 Pulse Ox 93 L 06/26/21 04:00 Weight - Most Recent: 54.431 kg I&O - Last 24 Hours: Intake & Output 06/25/21 06/26/21 06/26/21 22:59 06:59 14:59 Intake Total 1669 1244 Output Total 200 300 Balance 1469 944 Lab Results Last 24 Hours: Laboratory Results - last 24 hr 06/25/21 Range/Units 12:40 Sodium 141 (136-145) mmol/L Potassium 3.9 (3.5-5.1) mmol/L Chloride 109 H (98-107) mmol/L Carbon Dioxide 26.5 (21.0-32.0) mmol/L Anion Gap 9.4 (7-15) meq/L BUN 22 H (7-18) mg/dL Creatinine 1.25 H (0.51-1.17) mg/dL Est Cr Clr Drug Dosing 27.76 mL/min Estimated GFR (MDRD) 41 mL/min Glucose 129 H (70-99) mg/dL Calcium 8.8 (8.5-10.1) mg/dL Magnesium 2.9 H (1.8-2.4) mg/dL Troponin I High Sens 793 H* (<=51) ng/L [place] Results Last 24 Hours: Microbiology 06/24/21 19:54 Aerobic Blood Culture - Preliminary Blood - Venous Gram Negative Rods Med Orders - Current: Current Medications Acetaminophen (Acetaminophen 325 Mg Tab) 650 mg PO Q4H PRN PRN Reason: Pain (Mild 1-3)/fever Last Admin: 06/26/21 04:16 Dose: 650 mg Documented by: Apixaban (Apixaban 2.5 Mg Tab) 2.5 mg PO BID [facility] Last Admin: 06/25/21 18:43 Dose: 2.5 mg Documented by: Atorvastatin Calcium (Atorvastatin 40 Mg Tab) 40 mg PO BEDTIME [facility] Last Admin: 06/25/21 20:01 Dose: 40 mg Documented by: Cholecalciferol (Cholecalciferol (Vitamin D3) 5,000 Unit Tab) unit PO DAILY [facility] Famotidine (Famotidine 20 Mg Tab) 20 mg PO BEDTIME [facility] Last Admin: 06/25/21 20:00 Dose: 20 mg Documented by: Fluticasone Propionate (Fluticasone Propionate Nasal Mcewen 16 Gm Bottle) gm NASBOTH DAILY [facility] Ceftriaxone Sodium 1 gm/ (Sodium Chloride) 100 mls @ 200 mls/hr IV Q24H [facility] Last Admin: 06/25/21 10:52 Dose: 200 mls/hr Documented by: Levothyroxine Sodium (Levothyroxine 25 Mcg Tab) 25 mcg PO DAILY [facility] Last Admin: 06/25/21 12:17 Dose: 25 mcg Documented by: Magnesium Oxide (Magnesium Oxide 400 Mg Tab) 200 mg PO DAILY [facility] Dorzolamide Hcl/Timolol Maleate 22. 3mg-6.8mg/Ml 1 drop EYEBOTH BID [facility] Last Admin: 06/25/21 18:43 Dose: 1 drop Documented by: Ondansetron HCl (Ondansetron 4 Mg Tab.Dis) 4 mg PO Q4H PRN PRN Reason: Nausea/Vomiting Sertraline HCl (Sertraline 50 Mg Tab) 100 mg PO DAILY [facility] Sodium Chloride (Sodium Chloride 0.9% 10 Ml Syringe) 10 ml FLUSH ASDIRECTED PRN PRN Reason: Keep Vein Open Last Admin: 06/24/21 20:11 Dose: 10 ml Documented by: Discontinued Medications Amlodipine Besylate (Amlodipine 5 Mg Tab) 10 mg PO DAILY [facility] Last Admin: 06/25/21 12:26 Dose: Not Given Documented by: Ceftriaxone Sodium (Ceftriaxone 1 Gm Vial) 1 gm IVPUSH STAT ONE Stop: 06/24/21 21:38 Last Admin: 06/24/21 23:07 Dose: 1 gm Documented by: Clonidine HCl (Clonidine 0.1 Mg Tab) 0.1 mg PO BEDTIME [facility] Hydralazine HCl (Hydralazine 50 Mg Tab) 25 mg PO BID [facility] Sodium Chloride (Normal Saline) 1,000 mls @ 100 mls/hr IV ASDIRECTED [facility] Last Admin: 06/26/21 06:58 Dose: 100 mls/hr Documented by: Sodium Chloride (Normal Saline) 500 mls @ 500 mls/hr IV .BOLUS [facility] Last Admin: 06/24/21 23:07 Dose: 500 mls/hr Documented by: Potassium Chloride 10 meq/ (Premix) 50 mls @ 50 mls/hr IV Q1H [facility] Stop: 06/25/21 04:29 Last Admin: 06/25/21 04:42 Dose: 50 mls/hr Documented by: Magnesium Sulfate 2 gm/ Premix 50 mls @ 25 mls/hr IV Q1H [facility] Stop: 06/25/21 01:29 Last Admin: 06/25/21 02:54 Dose: 25 mls/hr Documented by: Lisinopril (Lisinopril 20 Mg Tab) 20 mg PO BID [facility] Last Admin: 06/25/21 14:48 Dose: Not Given Documented by: Ondansetron HCl (Ondansetron 4 Mg/2 Ml Sdv) 4 mg IVPUSH ONETIME ONE Stop: 06/24/21 20:08 Last Admin: 06/24/21 20:11 Dose: 4 mg Documented by: - Exam General: Alert, Oriented Lungs: Clear to Auscultation, Normal Respiratory Effort Cardiovascular: Regular Rate, Regular Rhythm GI/Abdominal Exam: Normal Bowel Sounds, Soft, Non-Tender Psy/Mental Status: Alert, Normal Affect - Patient Data Lab Results Last 24 hrs: Laboratory Results - last 24 hr 06/25/21 Range/Units 12:40 Sodium 141 (136-145) mmol/L Potassium 3.9 (3.5-5.1) mmol/L Chloride 109 H (98-107) mmol/L Carbon Dioxide 26.5 (21.0-32.0) mmol/L Anion Gap 9.4 (7-15) meq/L BUN 22 H (7-18) mg/dL Creatinine 1.25 H (0.51-1.17) mg/dL Est Cr Clr Drug Dosing 27.76 mL/min Estimated GFR (MDRD) 41 mL/min Glucose 129 H (70-99) mg/dL Calcium 8.8 (8.5-10.1) mg/dL Magnesium 2.9 H (1.8-2.4) mg/dL Troponin I High Sens 793 H* (<=51) ng/L Result Diagrams: 06/26/21 08:00 06/26/21 08:00 [place] Results Last 24 hrs: Microbiology 06/24/21 19:54 Aerobic Blood Culture - Preliminary Blood - Venous Gram Negative Rods Sepsis Event Note - Evaluation Sepsis Screening Result: Possible Sepsis Risk - Focused Exam Vital Signs: Vital Signs Temp Pulse Resp BP Pulse Ox 06/26/21 04:00 37.5 C 80 18 110/56 L 93 L 06/26/21 00:00 37.6 C 78 18 114/57 L 92 L - Problem List Review Problem List Initiated/Reviewed/Updated: Yes - My Orders Last 24 Hours: My Active Orders 06/26/21 07:21 CBC WITH AUTO DIFF [HEME] Routine 06/26/21 07:22 COMPREHENSIVE METABOLIC PN,CMP [CHEM] Routine MAGNESIUM [CHEM] Routine TROPONIN I HIGH SENSITIVITY [CHEM] Routine 06/26/21 07:51 CULTURE BLOOD [BC] Routine 06/26/21 07:56 CULTURE BLOOD [BC] Routine - Plan Plan:: Case is discussed with Dr. Beaulieu, hospitalist at [facility]. He does agree with plan to transfer the patient and will accept the patient. Transfer to [facility].
[2021-06-26] MEDS: TIMOLOL MALEATE EYEBOTH SCH (09:00)
[2021-06-26] MEDS: DORZOLAMIDE HCL EYEBOTH SCH (09:00)
[2021-06-26] MEDS: Apixaban 2.5 MG Tab PO SCH (09:01)
[2021-06-26] MEDS: Levothyroxine 25 MCG Tab PO SCH (09:01)
[2021-06-26 09:06] LABS: ANION GAP 9.4 meq/L (7-15)
[2021-06-26] MEDS: Sodium Chloride 0.9% 10 ML Syringe FLUSH PRN (11:01)
[2021-06-26] MEDS: cefTRIAXone 1 GM in Sodium Chloride 0.9% 100 ML IV SCH (11:01)
== END 2021-06-26 12:05 | DRG 281 ==
LOC: LL.ED 19:41 → LL.MS 21:30 → OBSVTOIN 06-25 20:37
PROVIDERS: ADMIT Nurse Practitioner Family; ATTEND Nurse Practitioner Family
DX: I21.4 Non-ST elevation (NSTEMI) myocardial infarction (principal); N39.0 Urinary tract infection, site not specified; R74.02 Elevation of levels of lactic acid dehydrogenase [LDH]; R50.9 Fever, unspecified; I13.0 Hypertensive heart and chronic kidney disease with heart failure and stage 1 through stage 4 chronic kidney disease, or unspecified chronic kidney disease; I50.32 Chronic diastolic (congestive) heart failure; I25.10 Atherosclerotic heart disease of native coronary artery without angina pectoris; Z66 Do not resuscitate; R79.89 Other specified abnormal findings of blood chemistry; N18.9 Chronic kidney disease, unspecified; H40.9 Unspecified glaucoma; F32.9 Major depressive disorder, single episode, unspecified; K21.9 Gastro-esophageal reflux disease without esophagitis; F41.9 Anxiety disorder, unspecified; E78.5 Hyperlipidemia, unspecified; J44.9 Chronic obstructive pulmonary disease, unspecified; D72.818 Other decreased white blood cell count; E06.3 Autoimmune thyroiditis; Z87.440 Personal history of urinary (tract) infections; Z86.73 Personal history of transient ischemic attack (TIA), and cerebral infarction without residual deficits; Z90.710 Acquired absence of both cervix and uterus; Z87.81 Personal history of (healed) traumatic fracture; Z98.42 Cataract extraction status, left eye; Z98.41 Cataract extraction status, right eye; Z90.49 Acquired absence of other specified parts of digestive tract; Z98.890 Other specified postprocedural states; E03.9 Hypothyroidism, unspecified; Z87.01 Personal history of pneumonia (recurrent); Z86.010 Personal history of colon polyps; Z87.19 Personal history of other diseases of the digestive system; Z79.01 Long term (current) use of anticoagulants; Z79.890 Hormone replacement therapy; Z90.722 Acquired absence of ovaries, bilateral; Z95.0 Presence of cardiac pacemaker; Z79.899 Other long term (current) drug therapy; E78.00 Pure hypercholesterolemia, unspecified; Z86.718 Personal history of other venous thrombosis and embolism; Z86.711 Personal history of pulmonary embolism; E87.6 Hypokalemia; E83.42 Hypomagnesemia; Z20.822 Contact with and (suspected) exposure to COVID-19
CPT/HCPCS: 36415; 71045; 80048; 80053; 81001; 82272; 83605; 83735; 84484; 85025; 85610; 85730; 86140; 87040; 87086; 87088; 87186; 93005; 96365; 96366; 96367; 96368; 96374; 96375; 96376; 99285-25; A9270-GY; G0378; J0696; J2405; J3475; J3480; J7030; J7040; U0002

== ENCOUNTER 2021-08-22 09:26 | Emergency (ER) | payer MEDICARE, BC ==
[2021-08-22] MEDS ORDERED: Ondansetron 4 MG/2 ML SDV IVPUSH ONE (09:31)
[2021-08-22] MEDS ORDERED: Meclizine 25 MG Tab PO ONE (09:31)
[2021-08-22] MEDS ORDERED: Sodium Chloride 0.9% 10 ML Syringe FLUSH PRN (09:31)
[2021-08-22] MEDS ORDERED: Sodium Chloride 0.9% 1,000 ML IV ONE (09:31)
--- NOTE | 2021-08-22 09:39 | EDM.PDOC ---
ED HPI GENERAL MEDICAL PROBLEM - General Chief Complaint: General Stated Complaint: dizziness Time Seen by Provider: 08/22/21 09:26 Source of Information: Reports: Patient, Family History Limitations: Reports: Other (slight cognitive impairment per the patient) - History of Present Illness INITIAL COMMENTS - FREE TEXT/NARRATIVE: Patient presents to the Ed for feeling unwell with her sons. She is a poor historian and looks to them for specifics. She states yesterday she started to feel dizzy. Worse with activity but intermittent and persisting. She did take her regular medications yesterday, but not this am. She chronically has urinary urgency, in the last month was transferred to [facility] for NSTEMI, no interventions per the sons. She has a pacemaker and is on a blood thinner due to atrial fibrillation. no recent falls or injuries. Feels weak and is not eating over the last day. no fevers, no diarrhea, some generalized body aches, and a scratchy throat. Also states has had a rash on the left neck/upper chest and upper back for a couple of days. Has not had her shingles vaccine, has had her covid vaccinations but is due to boosters and not around any ill contacts that she is aware of. Onset Date: 08/21/21 Duration: Intermittent Location: Reports: Generalized Improves with: Reports: None Worsens with: Reports: Movement Associated Symptoms: Reports: Loss of Appetite, Malaise, Nausea/Vomiting (nasuea only), Rash (left upper back and chest for several days), Weakness - Related Data Allergies Allergy/AdvReac Type Severity Reaction Status Date / Time No Known Allergies Allergy Verified 08/22/21 09:40 Home Meds: Home Meds Sertraline [Zoloft] 100 mg PO BEDTIME 11/03/13 [History] atorvaSTATin [Lipitor] 40 mg PO BEDTIME 11/03/13 [History] cloNIDine [Catapres] 0.1 mg PO BEDTIME 11/03/13 [History] lisinopriL [Prinivil] 40 mg PO DAILY 07/26/19 [History] Magnesium 250 mg PO DAILY 08/18/19 [History] Apixaban [Eliquis] 2.5 mg PO Q12HR 03/19/20 [History] Dorzolamide HCl/Timolol Maleat [Dorzolamide-Timolol Eye Drops] 1 drop EYELF Q12HR 03/19/20 [History] Fluticasone Propionate [Flonase] 2 spray NASBOTH DAILY 03/19/20 [History] Levothyroxine 25 mcg PO DAILY 03/19/20 [History] Famotidine [Pepcid] 20 mg PO BEDTIME 06/24/21 [History] amLODIPine [Norvasc] 10 mg PO DAILY 06/24/21 [History] hydrALAZINE [Apresoline] 25 mg PO Q12HR 06/24/21 [History] Calcium Carbonate [Tums Extra Strength] 1 tab PO Q12HR 08/22/21 [History] Cholecalciferol (Vitamin D3) [Vitamin D3] 20 mcg PO DAILY 08/22/21 [History] Latanoprost/Pf [Latanoprost 0.005% Eye Drop] 1 drop EYEBOTH BEDTIME 08/22/21 [History] Metoprolol Succinate [Toprol XL] 12.5 mg PO DAILY 08/22/21 [History] Sodium Chloride 0.65% [[place] Nasal [place]] 2 spray NASBOTH Q12HR PRN 08/22/21 [History] cephALEXin [Keflex] 500 mg PO Q8H #12 cap 08/22/21 [Rx] Past Medical History HEENT History: Reports: Allergic Rhinitis, Cataract, Glaucoma, Hard of Hearing, Impaired Vision, Macular Degeneration, Sinusitis, Other (See Below) Other HEENT History: 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 Syncopal episode during chiropractic treatment in 2018. Mild carotid occlusive disease and peripheral vascular disease. 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 Incomplete right bundle branch block, PACs, PVCs, first-degree AV block, sinus arrhythmia and mild coronary artery disease with 40% stenosis of the right coronary artery by heart catheterization in 2002 as below. Apparent previous history of a non-STEMI without other cardiac procedures. Borderline occasional CHF with small pleural effusions and known grade 1 diastolic dysfunction. Right ventricular enlargement. NSTEMI 05/2021 with high sensitivity troponin max 793 ( regular troponin max at 0.299). Nucelar stress test with reversible ischemia, small portion inferior left ventricle medical management per cardiology unless ongoing chest pain. Echocardiogram with ejection fraction of 73% Respiratory History: Reports: Bronchitis, Recurrent, COPD, Intubation, Previous, PE, Pneumonia, Recurrent, Pulmonary Fibrosis, Other (See Below) Other Respiratory History: Large right PE above. Gastrointestinal History: Reports: Cholelithiasis, Colon Polyp, Diverticulosis, Gastritis, GERD, Hepatitis, Hiatal Hernia, PUD, Other (See Below) Other Gastrointestinal History: History of small colonic polyps of unknown type however evidence of mild colitis per biopsies at time of colonoscopy on 07/10/03. Moderate diverticulosis extending from the distal transverse colon to the sigmoid region. 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 Surgical menopause secondary to dysfunctional uterine bleeding. Benign vaginal polyp on 04/20/2000. Musculoskeletal History: Reports: Arthritis, Back Pain, Chronic, Fracture, Neck Pain, Chronic, Osteoarthritis, Osteoporosis Other Musculoskeletal History: Scoliosis. Left lateral malleolar fracture on 07/01/98. 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 Psychiatric History: Reports: Anxiety, Depression Endocrine/Metabolic History: Reports: Hypokalemia, Hypomagnesemia, Hypothyroidism, Other (See Below) Other Endocrine/Metabolic History: Angel's disease. Previous hyperglycemia. Hematologic History: Reports: Blood Transfusion(s), Other (See Below) Other Hematologic History: Chronic leukopenia. Blood transfusion at time of hysterectomy. Dermatologic History: Reports: Other (See Below) Other Dermatologic History: Facial actinic keratosis diagnosed on 01/05/94. - Infectious Disease History Infectious Disease History: Reports: Hepatitis A - Past Surgical History HEENT Surgical History: Reports: Cataract Surgery, Eye Surgery, Laser Surgery, Other (See Below) Other HEENT Surgeries/Procedures: Bilateral laser treatments of the eye in about June 1999. Right cataract extraction on 01/15/02 with left cataract extraction on or/11/02. YAG laser posterior capsule treatment bilaterally on 12/14/05. Right eye shunt placement initially on 01/08/20 with revision on 01/22/20 secondary to her glaucoma. GI Surgical History: Reports: Appendectomy, Cholecystectomy, Colonoscopy, EGD, Other (See Below) Other GI Surgeries/Procedures: Last EGD and colonoscopy on 11/01/07 with similar previous evaluations on 07/10/03 with polypectomies 2 in 2002 as above. Additional colonoscopy on 05/31/04. Incidental appendectomy at time of hysterectomy as below at age 33. Female Surgical History: Reports: Hysterectomy, Salpingo-Oophorectomy, Other (See Below) Other Female Surgeries/Procedures: Partial hysterectomy with unilateral salpingo-oophorectomy and concomitant incidental appendectomy. Dysfunctional uterine bleeding at about age 33. Dermatological Surgical History: Reports: Other (See Below) - Past Imaging History Past Imaging History: Reports: Angiography (Pulmonary angiogram with thrombectomy on 11/08/13 and 11/09/13 as above. Heart Catheterization on 06/16/03 with findings as above.), Cardiac Echo (Last on 08/06/19 with ejection fraction of 5560 percent with findings as above. Previous evaluations on 11/08/13 and 09/06/99.), Carotid US (Multiple previous evaluations last on 08/06/19.), CAT Scan (Positive CTA of the chest on 11/08/[address] of the head on 03/15/99.), DEXA Scan (Multiple previous DEXA scans last on 05/10/11.), Holter Monitor (Last 48 hour Holter monitor study on 11/27/19 with results as above and previous evaluation on 09/01/99.), Mammogram (Last on 05/22/14.), PFT (07/01/03), Stress Testing (Dobutamine Cardiolite stress test on 06/08/07 on 06/08/07 with ejection fraction of 71%. Cardiolite stress test negative on 05/22/03.), Ultrasound (Abdominal aortic ultrasound on 05/05/06.), Venous Doppler (Lower extremities on 11/08/13 positive for right popliteal and peroneal DVT.) Social & Family History - Family History Cardiac: Reports: Bypass, CAD, Hypertension, PA, Other (See Below) Other Cardiac Family History: Brothers 2 with PA and CABG is in their 60s with one of these brothers dying from an PA at age 82. Brother with CHF and renal failure. Brother with possible cardiac aneurysm. Son with fatal PA at age 52 secondary to severe multivessel disease. Brother with hyperlipidemia. Respiratory: Reports: Asthma, Other (See Below) Other Respiratory Family Hisory: Maternal aunt with asthma. : Reports: Renal Disease/Insufficiency, Other (See Below) Other Family History: Brother with renal failure as above. Musculoskeletal: Reports: Arthritis, Osteoarthritis, Other (See Below) Other Musculoskeletal Family History: Osteoarthritis in father and brother. Neurological: Reports: Alzheimers Disease, CVA, Dementia, Parkinson's, Other (See Below) Other Neurological Family History: Brother with embolic CVA in his 60s. Mother with possible fatal CVA in her 70s. Brother with organic brain syndrome and Parkinson's disease. Endocrine/Metabolic: Reports: Diabetes, type II, IDDM, Other (See Below) Other Endocrine/Metabolic Family History: Brother with IDDM. Oncologic: Reports: Leukemia, Renal, Other (See Below) Other Oncologic Family History: Maternal aunts 2 with fatal unknown type of cancer in their 70s. Brother with renal cancer fatal in his 60s. Another brother with fatal leukemia at age 79. 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 Denies: Fever, Chills, Diaphoresis HEENT: Reports: Sinus Problem (chronically, worse in last seveal days), Vision Change (chronicaly last low to no vision in the left eye), Other ("scratchy throat"). Denies: Dental Pain, Ear Discharge, Eye Discharge, Rhinitis, Throat Pain, Throat Swelling Respiratory: Reports: No Symptoms. Denies: Shortness of Breath, Wheezing, Cough Cardiovascular: Reports: Lightheadedness, Palpitations (earlier today, felt like fast). Denies: Chest Pain, Claudication, Dyspnea on Exertion, Edema Endocrine: Reports: No Symptoms GI/Abdominal: Reports: Anorexia, Decreased Appetite, Nausea. Denies: Abdominal Pain, Black Stool, Bloody Stool, Diarrhea, Hematemesis, Hematochezia, Melena : Reports: Urgency (chronicaly). Denies: Discharge Musculoskeletal: Reports: Other (mild body aches) Skin: Reports: Rash (left neck, upper chest, upper back for several days) Neurological: Reports: Confusion (pre existing), Dizziness, Weakness. Denies: Headache, Pre-Existing Deficit, Seizure, Syncope, Tremors, Trouble Speaking, Difficulty Walking Psychiatric: Reports: No Symptoms Hematologic/Lymphatic: Reports: Easy Bleeding (due to blood thinner, no active bleeding) ED EXAM, GENERAL - Physical Exam Exam: See Below Exam Limited By: Other (slight cognitive impairment with time lines, otherwise answers questions well when asked, has capacity and understands examiners questions with appropriate answers) General Appearance: Alert, No Apparent Distress Eye Exam: Right Eye: PERRL (left is less reactive due to sight restrictions), Bilateral Eye: EOMI, Normal Inspection Ears: Normal External Exam, Normal Canal, Normal TMs, Hearing Loss (mild, no hearing aids) Nose: Normal Inspection, Normal Mucosa, No Blood Throat/Mouth: Normal Lips, Other (mild dry tonuge, voice " cracks" or "scratchy" but speech clear) Head: Atraumatic Neck: No: Limited Range of Motion, Lymphadenopathy (L), Lymphadenopathy (R), Tender Midline Respiratory/Chest: No Respiratory Distress, Lungs Clear, Normal Breath Sounds, No Accessory Muscle Use, Chest Non-Tender Cardiovascular: Irregularly Irregular (atrial fibrillation, rate controlled, multiple PVCs, rate changes with movement) GI/Abdominal: Normal Bowel Sounds, Soft, Non-Tender, No Organomegaly, No Mass Back Exam: No: CVA Tenderness (L), CVA Tenderness (R) Extremities: Normal Inspection, Normal Range of Motion, No Pedal Edema Neurological: Alert, CN II-XII Intact, Other (normal telephonic rn strength bilaterally, normal finger to nose with eyes closed, neagative pronator drift, normal HANDY, normal heel to chen, normal strength lower extremities, normal sensation to light touch distal upper and lower extremities, normal speech) Skin Exam: Zoster-Like Rash (left upper chest, left neck and left upper trapezius area) #1 Interpretation EKG Date: 08/22/21 Time: 09:55 Rhythm: Other (paced with bigeminy, controlled) Rate (Beats/Min): 73 [place]: Normal P-Wave: Absent Comparison: Other: (paced as previous, bigeminy new) Course - Orders/Labs/Meds Orders: Active Orders 24 hr Category Date Time Status Peripheral IV Care [RC] . DIRECTED Care 08/22/21 09:32 Active Chest 1V Frontal [CR] Stat Exams 08/22/21 09:31 Taken Head wo Cont [CT] Stat Exams 08/22/21 09:31 Taken CULTURE URINE [RM] Stat Lab 08/22/21 10:55 Received Sodium Chloride 0.9% [Saline Flush] Med 08/22/21 09:31 Active 10 ml FLUSH ASDIRECTED PRN cefTRIAXone [Rocephin] 1 gm Med 08/22/21 11:19 Active Sodium Chloride 0.9% [Normal Saline] 100 ml IV ONETIME Peripheral IV Insertion Adult [OM.PC] Routine Oth 08/22/21 09:31 Ordered EKG 12 Lead [EK] Stat Ther 08/22/21 09:31 Ordered Medication Orders Ceftriaxone Sodium 1 gm/ (Sodium Chloride) 100 mls @ 200 mls/hr IV ONETIME ONE Stop: 08/22/21 11:48 Sodium Chloride (Sodium Chloride 0.9% 10 Ml Syringe) 10 ml FLUSH ASDIRECTED PRN PRN Reason: Keep Vein Open Labs: Laboratory Tests 08/22/21 08/22/21 08/22/21 Range/Units 09:50 09:50 09:50 WBC 5.1 (4.0-10.2) K/uL RBC 3.71 L (3.77-5.09) M/uL Hgb 11.1 L D (11.7-15.5) g/dL Hct 34.8 (34.0-46.0) % MCV 93.8 (84.0-98.0) fL MCH 29.9 (28.2-33.3) pg MCHC 31.9 (31.7-36.0) g/dL RDW 16.1 H (11.2-14.1) % Plt Count 164 (150-350) K/uL Neut % (Auto) 61.6 (45.0-80.0) % Lymph % (Auto) 21.2 (10.0-50.0) % [place] % (Auto) 10.7 (2.0-14.0) % Eos % (Auto) 5.5 H (0.0-5.0) % Baso % (Auto) 1.0 (0.0-2.0) % Neut # (Auto) 3.11 (1.40-7.00) K/uL Lymph # (Auto) 1.07 (0.50-3.50) K/uL [place] # (Auto) 0.54 (0.00-1.00) K/uL Eos # (Auto) 0.28 (0.00-0.50) K/uL Baso # (Auto) 0.05 (0.00-0.20) K/uL PT (9.5-12.0) SEC INR Sodium 144 (136-145) mmol/L Potassium 3.7 (3.5-5.1) mmol/L Chloride 110 H (98-107) mmol/L Carbon Dioxide 24.7 (21.0-32.0) mmol/L Anion Gap 13.0 (7-15) meq/L BUN 20 H (7-18) mg/dL Creatinine 1.00 (0.51-1.17) mg/dL Est Cr Clr Drug Dosing TNP Estimated GFR (MDRD) 52 mL/min Glucose 104 H (70-99) mg/dL Lactic Acid 0.6 (0.4-2.0) mmol/L Calcium 9.3 (8.5-10.1) mg/dL Magnesium 1.8 (1.8-2.4) mg/dL Total Bilirubin 0.5 (0.2-1.0) mg/dL AST 19 (15-37) U/L ALT 24 (12-78) U/L Alkaline Phosphatase 85 (46-116) IU/L Troponin I High Sens 50 (<=51) ng/L Total Protein 6.6 (6.4-8.2) g/dL Albumin 3.2 L (3.4-5.0) g/dL Specimen Type Urine Color Urine Appearance Urine pH (5.0-9.0) Ur Specific [place] (1.005-1.030) Urine Protein (NEGATIVE) mg/dL Urine Glucose (UA) (NEGATIVE) mg/dL Urine Ketones (NEGATIVE) mg/dL Urine Occult Blood (NEGATIVE) Urine Nitrite (NEGATIVE) Urine Bilirubin (NEGATIVE) Urine Urobilinogen (0.2-1.0) E.U./dL Ur Leukocyte Esterase (NEGATIVE) Urine RBC /HPF Urine WBC /HPF Ur Epithelial Cells /LPF Urine Bacteria (NONE TO FEW) /HPF SARS-CoV-2 RNA (BETY) (NEGATIVE) 08/22/21 08/22/21 08/22/21 Range/Units 09:50 09:55 10:55 WBC (4.0-10.2) K/uL RBC (3.77-5.09) M/uL Hgb (11.7-15.5) g/dL Hct (34.0-46.0) % MCV (84.0-98.0) fL MCH (28.2-33.3) pg MCHC (31.7-36.0) g/dL RDW (11.2-14.1) % Plt Count (150-350) K/uL Neut % (Auto) (45.0-80.0) % Lymph % (Auto) (10.0-50.0) % [place] % (Auto) (2.0-14.0) % Eos % (Auto) (0.0-5.0) % Baso % (Auto) (0.0-2.0) % Neut # (Auto) (1.40-7.00) K/uL Lymph # (Auto) (0.50-3.50) K/uL [place] # (Auto) (0.00-1.00) K/uL Eos # (Auto) (0.00-0.50) K/uL Baso # (Auto) (0.00-0.20) K/uL PT 10.2 (9.5-12.0) SEC INR 1.0 Sodium (136-145) mmol/L Potassium (3.5-5.1) mmol/L Chloride (98-107) mmol/L Carbon Dioxide (21.0-32.0) mmol/L Anion Gap (7-15) meq/L BUN (7-18) mg/dL Creatinine (0.51-1.17) mg/dL Est Cr Clr Drug Dosing Estimated GFR (MDRD) mL/min Glucose (70-99) mg/dL Lactic Acid (0.4-2.0) mmol/L Calcium (8.5-10.1) mg/dL Magnesium (1.8-2.4) mg/dL Total Bilirubin (0.2-1.0) mg/dL AST (15-37) U/L ALT (12-78) U/L Alkaline Phosphatase (46-116) IU/L Troponin I High Sens (<=51) ng/L Total Protein (6.4-8.2) g/dL Albumin (3.4-5.0) g/dL Specimen Type Urincc Urine Color Light yellow Urine Appearance Slightly cloudy Urine pH 7.0 (5.0-9.0) Ur Specific [place] 1.020 (1.005-1.030) Urine Protein Negative (NEGATIVE) mg/dL Urine Glucose (UA) Negative (NEGATIVE) mg/dL Urine Ketones Negative (NEGATIVE) mg/dL Urine Occult Blood Negative (NEGATIVE) Urine Nitrite Positive H (NEGATIVE) Urine Bilirubin Negative (NEGATIVE) Urine Urobilinogen 0.2 (0.2-1.0) E.U./dL Ur Leukocyte Esterase Negative (NEGATIVE) Urine RBC Not seen /HPF Urine WBC 0-5 /HPF Ur Epithelial Cells Occasional /LPF Urine Bacteria Many H (NONE TO FEW) /HPF SARS-CoV-2 RNA (BETY) Negative (NEGATIVE) Meds: Medications Generic Name Dose Route Start Last Admin Trade Name Freq PRN Reason Stop Dose Admin Ceftriaxone Sodium 1 gm/ 100 mls @ 200 mls/hr 08/22/21 11:19 Sodium Chloride IV 08/22/21 11:48 ONETIME ONE Sodium Chloride 10 ml 08/22/21 09:31 Sodium Chloride 0.9% 10 Ml Syringe FLUSH ASDIRECTED PRN Keep Vein Open Discontinued Medications Generic Name Dose Route Start Last Admin Trade Name Freq PRN Reason Stop Dose Admin Sodium Chloride 1,000 mls @ 999 mls/hr 08/22/21 09:31 08/22/21 10:13 Normal Saline IV 08/22/21 10:31 999 mls/hr .BOLUS ONE Administration Meclizine HCl 25 mg 08/22/21 09:31 08/22/21 10:21 Meclizine 25 Mg Tab PO 08/22/21 09:32 25 mg ONETIME ONE Administration Ondansetron HCl 4 mg 08/22/21 09:31 08/22/21 10:20 Ondansetron 4 Mg/2 Ml Sdv IVPUSH 08/22/21 09:32 4 mg ONETIME ONE Administration - Radiology Interpretation Free Text/Narrative:: ct of the head without contrast without any acute changes. Chest x-ray without any acute changes Both films interpreted by radiology - Re-Assessments/Exams Free Text/Narrative Re-Assessment/Exam: 08/22/21 09:50 will keep the patient on cardiac monitoring. Due to the vagueness of her symptoms, cardiomyopathy, recent NSTEMI, urinary symptoms and due for COVId booster, will get labs, urine, ekg, troponing, covid, chest x-ray and head ct for the dizziness and being on a blood thinner. No neurological changes or signs. Has not eaten for a day, nauseated. Will give IV fluids 1 liter bolus, zofran 4 mg IVP and meclizine 25 mg PO. On cardiac monitoring appears to not be paced 100% of the time, but rate controlled, PVCS noted and large artifact when she moves Free Text/Narrative Re-Assessment/Exam: 08/22/21 10:08 reviewed medical records from transfer to [facility] 05/2021. Patient had presents with leukocytosis, elevated lactic acid ( 4)and elevated troponin, T MAX here of 793 without chest pain. Was started on ceftriaxone and sent to [facility]. TRoponin Max there was 0.299 ( normal 0.028) with continuation of her regular heart medications of hydralazine, metoprolol, eliquis and switched to oral keflex. She did have a nuclear stress test on 06/29 with a small area of reversible ischemia at the inferior apical Left ventricle. Echocardiogram revealed a normal EF of 73%. Medication management to be maximized and if patient had angina or chest pain, cardiac cath was recommend. Blood cultures and urine culture ( done a few days after presentation due to lack of staffed beds) revealed no growth. Patient Has no chest pain today Free Text/Narrative Re-Assessment/Exam: 08/22/21 11:39 Has a UTI, rest of testing is normal. Advised outpatient follow up with PCP due to recurrence. Also advised to avoid infants ( has a new one in family) until shingles are healed. She is not struggling with them or bothered so will not add medications to her already large medication list. Given a gram of Rocephin IV here. will put on Keflex as this has worked in the past. culture is pending. Has appointment with cardiology upcoming Departure - Departure Time of Disposition: 11:42 Disposition: Home, Self-Care 01 Condition: Good Clinical Impression: Shingles rash, Weakness UTI (urinary tract infection) Qualifiers: Urinary tract infection type: acute cystitis Hematuria presence: without hematuria Qualified Code(s): N30.00 - Acute cystitis without hematuria - Discharge Information *PRESCRIPTION DRUG MONITORING PROGRAM REVIEWED*: Not Applicable *COPY OF PRESCRIPTION DRUG MONITORING REPORT IN PATIENT MARTÍNEZ: Not Applicable Prescriptions: cephALEXin [Keflex] 500 mg PO Q8H #12 cap Instructions: Shingles, [id number], Weakness, [id number], Urinary Tract Infection, Adult, [id number] Referrals: Ross Corado PA [Primary Care Provider] - Forms: ED Department Discharge Additional Instructions: Make sure to avoid immunocompromised people ( cancer patients) , small infants and people until the rash is resolved. Wash hands well, do not share towels. Follow up with PCP for further problems with rash, and for continued urinary tract infections. You were given rocephin in the ER ( an antibiotic). supervisor cooler service and start oral antibiotics tomorrow. Urine culture is pending and you will be notified of needs for changes in antibiotics if there are any. Hydrate well, start with a BRAT diet ( bananas, applesause, toast, broth, etc, and advance as tolerated). - My Orders Last 24 Hours: My Active Orders 08/22/21 09:31 Chest 1V Frontal [CR] Stat Head wo Cont [CT] Stat Sodium Chloride 0.9% [Saline Flush] 10 ml FLUSH ASDIRECTED PRN Peripheral IV Insertion Adult [OM.PC] Routine EKG 12 Lead [EK] Stat 08/22/21 09:32 Peripheral IV Care [RC] . DIRECTED 08/22/21 10:55 CULTURE URINE [RM] Stat 08/22/21 11:19 cefTRIAXone [Rocephin] 1 gm Sodium Chloride 0.9% [Normal Saline] 100 ml IV ON ETIME - Assessment/Plan Last 24 Hours: My Active Orders 08/22/21 09:31 Chest 1V Frontal [CR] Stat Head wo Cont [CT] Stat Sodium Chloride 0.9% [Saline Flush] 10 ml FLUSH ASDIRECTED PRN Peripheral IV Insertion Adult [OM.PC] Routine EKG 12 Lead [EK] Stat 08/22/21 09:32 Peripheral IV Care [RC] . DIRECTED 08/22/21 10:55 CULTURE URINE [RM] Stat 08/22/21 11:19 cefTRIAXone [Rocephin] 1 gm Sodium Chloride 0.9% [Normal Saline] 100 ml IV ONETIME
[2021-08-22 10:19] LABS: CHLORIDE,CL 110 mmol/L (98-107); SODIUM,NA 144 mmol/L (136-145)
[2021-08-22] MEDS ORDERED: cefTRIAXone 1 GM in Sodium Chloride 0.9% 100 ML IV ONE (11:19)
[2021-08-22 22:00] VITALS: BP 159/54; PULSE 74
== END 2021-08-22 12:30 | disposition home or self-care (01) ==
LOC: LL.ED 09:26
DX: N30.00 Acute cystitis without hematuria (principal); B02.9 Zoster without complications; I25.10 Atherosclerotic heart disease of native coronary artery without angina pectoris; E78.00 Pure hypercholesterolemia, unspecified; I13.0 Hypertensive heart and chronic kidney disease with heart failure and stage 1 through stage 4 chronic kidney disease, or unspecified chronic kidney disease; E03.9 Hypothyroidism, unspecified; N18.9 Chronic kidney disease, unspecified; I50.9 Heart failure, unspecified; I25.2 Old myocardial infarction; K21.9 Gastro-esophageal reflux disease without esophagitis; J44.9 Chronic obstructive pulmonary disease, unspecified; Z86.73 Personal history of transient ischemic attack (TIA), and cerebral infarction without residual deficits; Z79.899 Other long term (current) drug therapy; Z79.01 Long term (current) use of anticoagulants; Z20.822 Contact with and (suspected) exposure to COVID-19; Z95.1 Presence of aortocoronary bypass graft
CPT/HCPCS: 36415; 70450; 71045; 80053; 81001; 83605; 83735; 84484; 85025; 85610; 87086; 87088; 87186; 93005; 96365; 96375; 99285; A9270; J0696; J2405; J7030; U0002; 93010

== ENCOUNTER 2021-10-24 05:41 | Emergency (ER) | payer MEDICARE, BC ==
[2021-10-24] MEDS ORDERED: Sodium Chloride 0.9% 10 ML Syringe FLUSH PRN (06:07)
[2021-10-24] MEDS ORDERED: Sodium Chloride 0.9% 1,000 ML IV SCH (06:15)
--- NOTE | 2021-10-24 06:35 | EDM.PDOC ---
ED HPI GENERAL MEDICAL PROBLEM - General Chief Complaint: General Stated Complaint: fall, vertigo Time Seen by Provider: 10/24/21 06:10 Source of Information: Reports: Patient, Old Records History Limitations: Reports: No Limitations - History of Present Illness INITIAL COMMENTS - FREE TEXT/NARRATIVE: Patient arrives with family after a fall at home. she states she has been lynne montes. Lives at home with two sons. She has been taking her medications and not ill. This morning she awoke to use the restroom. She used her walker and went to the bathroom. She stood after being done and suddenly became dizzy. No chest pain at the time.she ended up falling and twisted and hit her back on the step or the toliet. She banged on the wall until someone heard her. Her son helped her get up and she used the bathroom again. no black or blood in the stool, no dark or smelly urine. She no longer felt dizzy, but had hit her upper right back. Family brought her in for evaluation. Denies being short of breath, no chest pain, no dizziness now, does not want anything for pain Has a pacemaker and is due for a download soon. At last check they did alter something with it that could have been less demand pacing to extend the battery life from what family explains. Onset: Today (an hour or so prior to arrival) Thoracic Pain Score (Numeric/FACES): 5 - Related Data Allergies Allergy/AdvReac Type Severity Reaction Status Date / Time No Known Allergies Allergy Verified 10/24/21 05:46 Home Meds: Home Meds Sertraline [Zoloft] 100 mg PO BEDTIME 11/03/13 [History] lisinopriL [Prinivil] 40 mg PO DAILY 07/26/19 [History] Dorzolamide HCl/Timolol Maleat [Dorzolamide-Timolol Eye Drops] 1 drop EYELF Q12HR 03/19/20 [History] Fluticasone Propionate [Flonase] 2 spray NASBOTH DAILY 03/19/20 [History] Levothyroxine 25 mcg PO DAILY 03/19/20 [History] Famotidine [Pepcid] 20 mg PO BEDTIME 06/24/21 [History] hydrALAZINE [Apresoline] 25 mg PO Q12HR 06/24/21 [History] Cholecalciferol (Vitamin D3) [Vitamin D3] 1,000 unit PO DAILY 10/24/21 [History] Past Medical History HEENT History: Reports: Allergic Rhinitis, Cataract, Glaucoma, Hard of Hearing, Impaired Vision, Macular Degeneration, Sinusitis, Other (See Below) Other HEENT History: 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 Syncopal episode during chiropractic treatment in 2018. Mild carotid occlusive disease and peripheral vascular disease. 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 Incomplete right bundle branch block, PACs, PVCs, first-degree AV block, sinus arrhythmia and mild coronary artery disease with 40% stenosis of the right coronary artery by heart catheterization in 2002 as below. Apparent previous history of a non-STEMI without other cardiac procedures. Borderline occasional CHF with small pleural effusions and known grade 1 diastolic dysfunction. Right ventricular enlargement. NSTEMI 05/2021 with high sensitivity troponin max 793 ( regular troponin max at 0.299). Nucelar stress test with reversible ischemia, small portion inferior left ventricle medical management per cardiology unless ongoing chest pain. Echocardiogram with ejection fraction of 73% Respiratory History: Reports: Bronchitis, Recurrent, COPD, Intubation, Previous, PE, Pneumonia, Recurrent, Pulmonary Fibrosis, Other (See Below) Other Respiratory History: Large right PE above. Gastrointestinal History: Reports: Cholelithiasis, Colon Polyp, Diverticulosis, Gastritis, GERD, Hepatitis, Hiatal Hernia, PUD, Other (See Below) Other Gastrointestinal History: History of small colonic polyps of unknown type however evidence of mild colitis per biopsies at time of colonoscopy on 07/10/03. Moderate diverticulosis extending from the distal transverse colon to the sigmoid region. Genitourinary History: Reports: Chronic Renal Insuffiency, Urinary Incontinence, UTI, Recurrent FLOOR POLISHER History: Reports: Dysfunctional Uterine Bleeding, Fibroids, Other FLOOR POLISHER History: 1 premature delivery at about 7 months gestation otherwise Full term without complications during pregnancies or deliveries. Surgical menopause secondary to dysfunctional uterine bleeding. Benign vaginal polyp on 04/20/2000. Musculoskeletal History: Reports: Arthritis, Back Pain, Chronic, Fracture, Neck Pain, Chronic, Osteoarthritis, Osteoporosis Other Musculoskeletal History: Scoliosis. Left lateral malleolar fracture on 07/01/98. 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 Psychiatric History: Reports: Anxiety, Depression Endocrine/Metabolic History: Reports: Hypokalemia, Hypomagnesemia, Hypothyroidism, Other (See Below) Other Endocrine/Metabolic History: Angel's disease. Previous hyperglycemia. Hematologic History: Reports: Blood Transfusion(s), Other (See Below) Other Hematologic History: Chronic leukopenia. Blood transfusion at time of hysterectomy. Dermatologic History: Reports: Other (See Below) Other Dermatologic History: Facial actinic keratosis diagnosed on 01/05/94. - Infectious Disease History Infectious Disease History: Reports: Hepatitis A - Past Surgical History HEENT Surgical History: Reports: Cataract Surgery, Eye Surgery, Laser Surgery, Other (See Below) Other HEENT Surgeries/Procedures: Bilateral laser treatments of the eye in about June 1999. Right cataract extraction on 01/15/02 with left cataract extraction on . YAG laser posterior capsule treatment bilaterally on 12/14/05. Right eye shunt placement initially on 01/08/20 with revision on 01/22/20 secondary to her glaucoma. GI Surgical History: Reports: Appendectomy, Cholecystectomy, Colonoscopy, EGD, Other (See Below) Other GI Surgeries/Procedures: Last EGD and colonoscopy on 11/01/07 with similar previous evaluations on 07/10/03 with polypectomies 2 in 2002 as above. Additional colonoscopy on 05/31/04. Incidental appendectomy at time of hysterectomy as below at age 33. Female Surgical History: Reports: Hysterectomy, Salpingo-Oophorectomy, Other (See Below) Other Female Surgeries/Procedures: Partial hysterectomy with unilateral salpingo-oophorectomy and concomitant incidental appendectomy. Dysfunctional uterine bleeding at about age 33. Dermatological Surgical History: Reports: Other (See Below) - Past Imaging History Past Imaging History: Reports: Angiography (Pulmonary angiogram with thrombectomy on 11/08/13 and 11/09/13 as above. Heart Catheterization on 06/16/03 with findings as above.), Cardiac Echo (Last on 08/06/19 with ejection fraction of 5560 percent with findings as above. Previous evaluations on 11/08/13 and 09/06/99.), Carotid US (Multiple previous evaluations last on 08/06/19.), CAT Scan (Positive CTA of the chest on 11/08/[address] of the head on 03/15/99.), DEXA Scan (Multiple previous DEXA scans last on 05/10/11.), Holter Monitor (Last 48 hour Holter monitor study on 11/27/19 with results as above and previous evaluation on 09/01/99.), Mammogram (Last on 05/22/14.), PFT (07/01/03), Stress Testing (Dobutamine Cardiolite stress test on 06/08/07 on 06/08/07 with ejection fraction of 71%. Cardiolite stress test negative on 05/22/03.), Ultrasound (Abdominal aortic ultrasound on 05/05/06.), Venous Doppler (Lower extremities on 11/08/13 positive for right popliteal and peroneal DVT.) Social & Family History - Family History Cardiac: Reports: Bypass, CAD, Hypertension, DE, Other (See Below) Other Cardiac Family History: Brothers 2 with DE and CABG is in their 60s with one of these brothers dying from an DE at age 82. Brother with CHF and renal failure. Brother with possible cardiac aneurysm. Son with fatal DE at age 52 secondary to severe multivessel disease. Brother with hyperlipidemia. Respiratory: Reports: Asthma, Other (See Below) Other Respiratory Family Hisory: Maternal aunt with asthma. : Reports: Renal Disease/Insufficiency, Other (See Below) Other Family History: Brother with renal failure as above. Musculoskeletal: Reports: Arthritis, Osteoarthritis, Other (See Below) Other Musculoskeletal Family History: Osteoarthritis in father and brother. Neurological: Reports: Alzheimers Disease, CVA, Dementia, Parkinson's, Other (See Below) Other Neurological Family History: Brother with embolic CVA in his 60s. Mother with possible fatal CVA in her 70s. Brother with organic brain syndrome and Parkinson's disease. Endocrine/Metabolic: Reports: Diabetes, type II, IDDM, Other (See Below) Other Endocrine/Metabolic Family History: Brother with IDDM. Oncologic: Reports: Leukemia, Renal, Other (See Below) Other Oncologic Family History: Maternal aunts 2 with fatal unknown type of cancer in their 70s. Brother with renal cancer fatal in his 60s. Another brother with fatal leukemia at age 79. 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 Denies: Fever, Chills, Malaise, Weakness, Decreased Appetite HEENT: Reports: No Symptoms. Denies: Rhinitis, Throat Pain, Throat Swelling Respiratory: Reports: No Symptoms. Denies: Shortness of Breath, Cough Cardiovascular: Reports: No Symptoms. Denies: Chest Pain, Dyspnea on Exertion Endocrine: Reports: No Symptoms. Denies: Fatigue GI/Abdominal: Reports: No Symptoms. Denies: Abdominal Pain, Anorexia, Black Stool, Bloody Stool, Diarrhea, Decreased Appetite, Flatus, Nausea, Vomiting Musculoskeletal: Reports: Back Pain (right upper back) Skin: Reports: No Symptoms Neurological: Reports: Dizziness (upon standing this am. non since) Psychiatric: Reports: No Symptoms Hematologic/Lymphatic: Reports: No Symptoms ED EXAM, GENERAL - Physical Exam Exam: See Below Exam Limited By: No Limitations General Appearance: Alert, WD/WN, No Apparent Distress Eye Exam: Bilateral Eye: Normal Inspection, PERRL Ears: Normal External Exam Nose: Normal Inspection, Normal Mucosa Throat/Mouth: Normal Inspection, Normal Voice, No Airway Compromise Head: Atraumatic Neck: Normal Inspection, Supple, Non-Tender Respiratory/Chest: No Respiratory Distress, Lungs Clear, Normal Breath Sounds, No Accessory Muscle Use, Chest Non-Tender, Other (no crepitus or subcutaneous emphysema with palpation of the chest. ) Cardiovascular: Normal Peripheral Pulses, Regular Rate, Rhythm, No Edema GI/Abdominal: Normal Bowel Sounds, Soft, Non-Tender. No: Rigid, Rebound Back Exam: Normal Inspection, Other (no lesions rashes or bruising). No: Muscle Spasm, Vertebral Tenderness Extremities: Normal Inspection, Normal Range of Motion Neurological: Alert, Oriented, Normal Cognition, No Motor/Sensory Deficits Psychiatric: Normal Affect #1 Interpretation EKG Date: 10/24/21 Time: 06:00 Rhythm: Other (atrial paced) Rate (Beats/Min): 65 P-Wave: Present QRS: Normal ST-T: Normal QT: Normal NH/PQ Interval: prolonged pr Comparison: No Change Course - Vital Signs Last Recorded V/S: Last Vital Signs Temp 36.4 C 10/24/21 05:51 Pulse 72 10/24/21 09:27 Resp 16 10/24/21 06:29 BP 149/82 H 10/24/21 09:27 Pulse Ox 95 10/24/21 06:29 - Orders/Labs/Meds Orders: Active Orders 24 hr Category Date Time Status Cardiac Monitoring [RC] . DIRECTED Care 10/24/21 06:07 Active Peripheral IV Care [RC] . DIRECTED Care 10/24/21 06:08 Active Chest 2V [CR] Stat Exams 10/24/21 06:07 Taken Sodium Chloride 0.9% [Normal Saline] 1,000 ml Med 10/24/21 06:15 Active IV ASDIRECTED Sodium Chloride 0.9% [Saline Flush] Med 10/24/21 06:07 Active 10 ml FLUSH ASDIRECTED PRN Peripheral IV Insertion Adult [OM.PC] Routine Oth 10/24/21 06:07 Ordered Medication Orders Sodium Chloride (Normal Saline) 1,000 mls @ 999 mls/hr IV ASDIRECTED DARI Last Admin: 10/24/21 06:31 Dose: 999 mls/hr Documented by: ERIN Sodium Chloride (Sodium Chloride 0.9% 10 Ml Syringe) 10 ml FLUSH ASDIRECTED PRN PRN Reason: Keep Vein Open Last Admin: 10/24/21 09:28 Dose: 10 ml Documented by: SAMPSON Labs: Laboratory Tests 10/24/21 10/24/21 10/24/21 Range/Units 06:25 06:25 06:25 WBC 7.8 (4.0-10.2) K/uL RBC 4.08 (3.77-5.09) M/uL Hgb 12.2 (11.7-15.5) g/dL Hct 38.2 (34.0-46.0) % MCV 93.6 (84.0-98.0) fL MCH 29.9 (28.2-33.3) pg MCHC 31.9 (31.7-36.0) g/dL RDW 16.0 H (11.2-14.1) % Plt Count 176 (150-350) K/uL Neut % (Auto) 74.2 (45.0-80.0) % Lymph % (Auto) 14.7 (10.0-50.0) % [place] % (Auto) 7.2 (2.0-14.0) % Eos % (Auto) 3.5 (0.0-5.0) % Baso % (Auto) 0.4 (0.0-2.0) % Neut # (Auto) 5.80 (1.40-7.00) K/uL Lymph # (Auto) 1.15 (0.50-3.50) K/uL [place] # (Auto) 0.56 (0.00-1.00) K/uL Eos # (Auto) 0.27 (0.00-0.50) K/uL Baso # (Auto) 0.03 (0.00-0.20) K/uL Sodium 146 H (136-145) mmol/L Potassium 3.0 L (3.5-5.1) mmol/L Chloride 107 (98-107) mmol/L Carbon Dioxide 28.8 (21.0-32.0) mmol/L Anion Gap 13.2 (7-15) meq/L BUN 16 (7-18) mg/dL Creatinine 1.09 (0.51-1.17) mg/dL Est Cr Clr Drug Dosing TNP Estimated GFR (MDRD) 47 mL/min Glucose 123 H (70-99) mg/dL Lactic Acid 1.0 (0.4-2.0) mmol/L Calcium 9.5 (8.5-10.1) mg/dL Magnesium 1.9 (1.8-2.4) mg/dL Total Bilirubin 0.4 (0.2-1.0) mg/dL AST 24 (15-37) U/L ALT 24 (12-78) U/L Alkaline Phosphatase 103 (46-116) IU/L Troponin I High Sens 335 H* (<=51) ng/L C-Reactive Protein < 0.2 (<=0.9) mg/dL NT-Pro-B Natriuret Pep 1245 H (0-125) pg/mL Total Protein 7.5 (6.4-8.2) g/dL Albumin 3.6 (3.4-5.0) g/dL Specimen Type Urine Color Urine Appearance Urine pH (5.0-9.0) Ur Specific [place] (1.005-1.030) Urine Protein (NEGATIVE) mg/dL Urine Glucose (UA) (NEGATIVE) mg/dL Urine Ketones (NEGATIVE) mg/dL Urine Occult Blood (NEGATIVE) Urine Nitrite (NEGATIVE) Urine Bilirubin (NEGATIVE) Urine Urobilinogen (0.2-1.0) E.U./dL Ur Leukocyte Esterase (NEGATIVE) Urine RBC /HPF Urine WBC /HPF Urine Bacteria (NONE TO FEW) /HPF 10/24/21 10/24/21 Range/Units 07:05 08:07 WBC (4.0-10.2) K/uL RBC (3.77-5.09) M/uL Hgb (11.7-15.5) g/dL Hct (34.0-46.0) % MCV (84.0-98.0) fL MCH (28.2-33.3) pg MCHC (31.7-36.0) g/dL RDW (11.2-14.1) % Plt Count (150-350) K/uL Neut % (Auto) (45.0-80.0) % Lymph % (Auto) (10.0-50.0) % [place] % (Auto) (2.0-14.0) % Eos % (Auto) (0.0-5.0) % Baso % (Auto) (0.0-2.0) % Neut # (Auto) (1.40-7.00) K/uL Lymph # (Auto) (0.50-3.50) K/uL [place] # (Auto) (0.00-1.00) K/uL Eos # (Auto) (0.00-0.50) K/uL Baso # (Auto) (0.00-0.20) K/uL Sodium (136-145) mmol/L Potassium (3.5-5.1) mmol/L Chloride (98-107) mmol/L Carbon Dioxide (21.0-32.0) mmol/L Anion Gap (7-15) meq/L BUN (7-18) mg/dL Creatinine (0.51-1.17) mg/dL Est Cr Clr Drug Dosing Estimated GFR (MDRD) mL/min Glucose (70-99) mg/dL Lactic Acid (0.4-2.0) mmol/L Calcium (8.5-10.1) mg/dL Magnesium (1.8-2.4) mg/dL Total Bilirubin (0.2-1.0) mg/dL AST (15-37) U/L ALT (12-78) U/L Alkaline Phosphatase (46-116) IU/L Troponin I High Sens 860 H* (<=51) ng/L C-Reactive Protein (<=0.9) mg/dL NT-Pro-B Natriuret Pep (0-125) pg/mL Total Protein (6.4-8.2) g/dL Albumin (3.4-5.0) g/dL Specimen Type Urincc Urine Color Yellow Urine Appearance Slightly cloudy Urine pH 7.5 (5.0-9.0) Ur Specific [place] 1.025 (1.005-1.030) Urine Protein 100 H (NEGATIVE) mg/dL Urine Glucose (UA) Negative (NEGATIVE) mg/dL Urine Ketones Negative (NEGATIVE) mg/dL Urine Occult Blood Trace-intact H (NEGATIVE) Urine Nitrite Negative (NEGATIVE) Urine Bilirubin Negative (NEGATIVE) Urine Urobilinogen 0.2 (0.2-1.0) E.U./dL Ur Leukocyte Esterase Negative (NEGATIVE) Urine RBC 0-5 /HPF Urine WBC 0-5 /HPF Urine Bacteria Moderate H (NONE TO FEW) /HPF Meds: Medications Generic Name Dose Route Start Last Admin Trade Name Freq PRN Reason Stop Dose Admin Sodium Chloride 1,000 mls @ 999 mls/hr 10/24/21 06:15 10/24/21 06:31 Normal Saline IV 999 mls/hr ASDIRECTED DARI Administration Sodium Chloride 10 ml 10/24/21 06:07 10/24/21 09:28 Sodium Chloride 0.9% 10 Ml Syringe FLUSH 10 ml ASDIRECTED PRN Administration Keep Vein Open Discontinued Medications Generic Name Dose Route Start Last Admin Trade Name Freq PRN Reason Stop Dose Admin Acetaminophen 650 mg 10/24/21 07:18 10/24/21 07:34 Acetaminophen 325 Mg Tab PO 10/24/21 07:19 650 mg NOW ONE Administration Aspirin 324 mg 10/24/21 07:32 10/24/21 07:36 Aspirin 81 Mg Tab.Chew PO 10/24/21 07:33 324 mg ONETIME ONE Administration Atorvastatin Calcium 40 mg 10/24/21 09:16 10/24/21 09:27 Atorvastatin 40 Mg Tab PO 10/24/21 09:17 40 mg ONETIME ONE Administration Famotidine 20 mg 10/24/21 09:16 10/24/21 09:27 Famotidine 20 Mg/2 Ml Sdv IVPUSH 10/24/21 09:17 20 mg ONETIME ONE Administration Ceftriaxone Sodium 1 gm/ 100 mls @ 200 mls/hr 10/24/21 07:25 10/24/21 07:33 Sodium Chloride IV 10/24/21 07:54 200 mls/hr ONETIME ONE Administration Metoprolol Tartrate 25 mg 10/24/21 09:16 10/24/21 09:27 Metoprolol Tartrate 25 Mg Tab PO 10/24/21 09:17 25 mg ONETIME ONE Administration - Radiology Interpretation Free Text/Narrative:: no acute, preliminary read only - Re-Assessments/Exams Free Text/Narrative Re-Assessment/Exam: 10/24/21 06:40 patient presents with dizziness after use of the bathroom and standing up. VSS., fine now. Will check ekg, labs to include troponin and a urine as she has had a uti in the past with a similar presentation. 10/24/21 07:13 Patient has an elevated troponin. Has had elevated levels in the past. today is 335, has been 519, 793, 1097. no chest pain. sees elkin Ferreira access to cardiology notes will repeat troponin at 2 hour loni. BNP chronic elevation in the 1200 range. 1325 today. 10/24/21 07:37 Has UTI, will give rocephin1 gram IV, last culture was e coli, sensitive to all. will place on Keflex outpatient. patient tells me that she was to be on a pill that is placed vaginally by a syringe in order to prevent uti. This appears to be estradiol. She ran out and tried to get them filled at the pharmacy but they told her it was too early. she has been off these for at least a week or so. she did find these syringes in the cabinet yesterday and wondered how they got there, but did not use one., Family does not feel a medication that is every other day is going to be reliably taken. Has an appointment upcoming with PCP on . Needs to recheck urine at that time. Discuss possibility of daily prophylactic antibiotic with PCP 10/24/21 07:53 10/24/21 08:[address] [facility] cardiology for guidance as the troponin did increase to 860. per notes, she has opted for medical management, last cath 2002, did not want intervention at that time. No chest pain ever, no ekg changes. Discussed with Dr. Pineda, she is familiar with the patient. Has access to recent stress test that was normal. Patient refuses catheter intervention or blood thinners. Given no chest pain and desire of no invasive interventions, Dr. Pineda feels transfer would not result in any different outcome. does not feel admission is needed, but could follow the troponins, but would not change any medical management unless the patient wanted transfer or developed chest pain. Dr. Pineda feels the troponin could be up due to the UTI as an acute phase reactant. she wants her on full aspirin initially, and can taper since has been off. Wants her back on cholesterol medication since it has been stopped and continue her metoprolol. extensive discussion with patient and family about their desires/concerns. She and they do not want transfer for interventions, do not want blood thinners. willing to restart medications. offered admission to [facility] troponins but advised would not change treatment unless chest pain develops. They elect to go home. given atorvastatin, metoprolol and full aspirin here. has these medications at home. sent home with flexeril, tramaol and keflex from ED stock as she is complaining of the pain from the fall and tylenol hs not helped it. Would talk with primary care about these prescriptions and above statement about uti. cardiology will be calling to set up appointment with the patient. 10/24/21 11:32 Departure - Departure Time of Disposition: 09:30 Disposition: Home, Self-Care 01 Clinical Impression: Elevated troponin UTI (urinary tract infection) Qualifiers: Urinary tract infection type: acute cystitis Hematuria presence: without hematuria Qualified Code(s): N30.00 - Acute cystitis without hematuria - Discharge Information Instructions: Urinary Tract Infection, Adult, [id number] Referrals: Ilana Potts MD [Primary Care Provider] - Forms: ED Department Discharge Additional Instructions: You were treated with rocephin for UTI, and start taking cefalexin 500 mg tid for 4 day for uti. Follow up with PCP for recheck on the and discuss need for intermediate card tender daily antibiotic to prevent uit Restart 325 mg aspirin daily for the next week and then can decrease to 81 mg daily. You were given a dose in the ED. Restart the atorvastatin daily, you were given a dose here and have some at home. Continue the metoprolol daily, you were given a dose here. You are given flexeril and tramadol for the pain. These medications will make you light headed and dizzy. Use caution with them. Take the flexeril one tablet every 8 hours for muscle spasm and the tramadol every 8 hours for pain not handled by motrin and tylenol You have an elevation of your troponin. Dr. Wadsworth feels this is due to your UTI and wants the above medications. You will be contacted as to follow up soon. You were offered admission and transfer, but have opted for non invasive treatment and have not had chest pain. You are welcome to return. Options are transfer to [place] for heart catheterization and possible blood thinners. otherwise you are welcome to return for admission here for medical management if you choose. Sepsis Event Note (ED) - Evaluation Sepsis Screening Result: No Definite Risk - Focused Exam Vital Signs: Vital Signs Temp Pulse Pulse Resp BP BP Pulse Ox 10/24/21 09:27 72 149/82 H 10/24/21 06:29 73 16 154/73 H 95 10/24/21 06:15 158/73 H 10/24/21 05:51 36.4 C 70 16 161/84 H 94 L - My Orders Last 24 Hours: My Active Orders 10/24/21 06:07 Cardiac Monitoring [RC] . DIRECTED Chest 2V [CR] Stat Sodium Chloride 0.9% [Saline Flush] 10 ml FLUSH ASDIRECTED PRN Peripheral IV Insertion Adult [OM.PC] Routine 10/24/21 06:08 Peripheral IV Care [RC] . DIRECTED 10/24/21 06:15 Sodium Chloride 0.9% [Normal Saline] 1,000 ml IV ASDIRECTED - Assessment/Plan Last 24 Hours: My Active Orders 10/24/21 06:07 Cardiac Monitoring [RC] . DIRECTED Chest 2V [CR] Stat Sodium Chloride 0.9% [Saline Flush] 10 ml FLUSH ASDIRECTED PRN Peripheral IV Insertion Adult [OM.PC] Routine 10/24/21 06:08 Peripheral IV Care [RC] . DIRECTED 10/24/21 06:15 Sodium Chloride 0.9% [Normal Saline] 1,000 ml IV ASDIRECTED
[2021-10-24 06:57] LABS: CHLORIDE,CL 107 mmol/L (98-107); SODIUM,NA 146 mmol/L (136-145)
[2021-10-24 06:58] LABS: ANION GAP 13.2 meq/L (7-15)
[2021-10-24] MEDS ORDERED: Acetaminophen 325 MG Tab PO ONE (07:18)
[2021-10-24] MEDS ORDERED: cefTRIAXone 1 GM in Sodium Chloride 0.9% 100 ML IV ONE (07:25)
[2021-10-24] MEDS ORDERED: Aspirin 81 MG Tab.Chew PO ONE (07:32)
[2021-10-24] MEDS ORDERED: Famotidine 20 MG/2 ML SDV IVPUSH ONE (09:16)
[2021-10-24] MEDS ORDERED: Metoprolol Tartrate 25 MG Tab PO ONE (09:16)
[2021-10-24] MEDS ORDERED: atorvaSTATin 40 MG Tab PO ONE (09:16)
[2021-10-24 15:39] VITALS: BP 146/88; PULSE 77
== END 2021-10-24 10:20 | disposition home or self-care (01) ==
LOC: LL.ED 05:41
DX: R77.8 Other specified abnormalities of plasma proteins (principal); N30.00 Acute cystitis without hematuria; J44.9 Chronic obstructive pulmonary disease, unspecified; I11.0 Hypertensive heart disease with heart failure; I50.9 Heart failure, unspecified; I25.2 Old myocardial infarction; I25.10 Atherosclerotic heart disease of native coronary artery without angina pectoris; Z79.899 Other long term (current) drug therapy
CPT/HCPCS: 36415; 71046; 80053; 81001; 83605; 83735; 83880; 84484; 85025; 86140; 93005; 96365; 96375; 99284; A9270; J0696; J3490; J7030

== ENCOUNTER 2022-01-20 21:08 | Inpatient (IN) | payer MEDICARE, BC ==
[2022-01-20] MEDS ORDERED: Sodium Chloride 0.9% 10 ML Syringe FLUSH PRN (21:34)
[2022-01-20 22:59] LABS: CHLORIDE,CL 103 mmol/L (98-107); SODIUM,NA 142 mmol/L (136-145)
[2022-01-20] MEDS ORDERED: Phenazopyridine 95 MG Tab PO STA (23:12)
[2022-01-20] MEDS ORDERED: cefTRIAXone 1 GM in Sodium Chloride 0.9% 100 ML IV ONE (23:12)
[2022-01-20 23:50] LABS: ANION GAP 14.7 meq/L (7-15)
[2022-01-20] MEDS ORDERED: Potassium Chloride Riders 10 MEQ in Premix Bag 1 BAG IV ONE (23:51)
[2022-01-21] MEDS: Lactated Ringers 1,000 ML IV SCH ×2 (00:49→17:19)
[2022-01-21] MEDS ORDERED: Ondansetron 4 MG/2 ML SDV IV ONE (01:12)
[2022-01-21] MEDS ORDERED: Magnesium Sulfate/Water 2 GM in Premix Bag 1 BAG IV ONE (02:21)
[2022-01-21] MEDS: Potassium Chloride Riders 10 MEQ in Premix Bag 1 BAG IV SCH ×7 (02:33→10:13)
[2022-01-21 04:02] LABS: ANION GAP 13.1 meq/L (7-15)
[2022-01-21] MEDS ORDERED: Ondansetron 4 MG/2 ML SDV IVPUSH PRN (05:00)
[2022-01-21] MEDS ORDERED: Enoxaparin 40 MG/0.4 ML Syringe SUBCUT SCH (08:00)
[2022-01-21] MEDS: Timolol Maleate 0.5% Ophth Soln 5 ML Bottle EYEBOTH SCH ×2 (08:12→17:20)
[2022-01-21] MEDS: Phenazopyridine 95 MG Tab PO SCH ×4 (08:15→19:40)
[2022-01-21] MEDS: Fluticasone NASAL Spray 16 GM Bottle NASBOTH SCH (08:20)
[2022-01-21] MEDS: Cholecalciferol (Vitamin D3) 25 MCG Tab PO SCH (08:30)
[2022-01-21] MEDS: Lisinopril 20 MG Tab PO SCH (08:31)
[2022-01-21] MEDS: Levothyroxine 25 MCG Tab PO SCH (08:35)
[2022-01-21] MEDS: Furosemide 20 MG Tab PO SCH (08:36)
[2022-01-21] MEDS: Beta-Carotene (Vitamin A) w/Vitamin C & E plus Minerals Tab PO SCH (08:36)
[2022-01-21 08:45] LABS: CORONAVIRUS COVID-19 NAA NEGATIVE (NEGATIVE); RESPIRATORY SYNCYTIAL VIR NAA NEGATIVE (NEGATIVE)
[2022-01-21] MEDS: Dorzolamide 2% Ophth Soln 10 ML Bottle EYEBOTH SCH ×2 (09:12→17:20)
[2022-01-21] MEDS: Acetaminophen 650 MG Tab.ER PO PRN (11:49)
[2022-01-21 13:34] LABS: ANION GAP 15.9 meq/L (7-15)
[2022-01-21] MEDS ORDERED: Pantoprazole 40 MG Vial ONE (13:46)
[2022-01-21] MEDS ORDERED: Potassium Bicarbonate/Cit Ac 20 MEQ Effervescent Tab PO ONE (15:51)
[2022-01-21] MEDS: Donepezil 5 MG Tab PO SCH (17:20)
[2022-01-21] MEDS: Sertraline 50 MG Tab PO SCH (21:06)
[2022-01-21] MEDS: cefTRIAXone 1 GM in Sodium Chloride 0.9% 100 ML IV SCH (21:07)
[2022-01-22] MEDS: Lactated Ringers 1,000 ML IV SCH ×3 (02:08→22:25)
[2022-01-22] MEDS ORDERED: Potassium Chloride 10 MEQ Tab.ER PO SCH (08:00)
[2022-01-22 08:45] LABS: ANION GAP 10.5 meq/L (7-15)
[2022-01-22] MEDS: Enoxaparin 30 MG/0.3 ML Syringe SUBCUT SCH (09:23)
[2022-01-22] MEDS: Beta-Carotene (Vitamin A) w/Vitamin C & E plus Minerals Tab PO SCH (09:24)
[2022-01-22] MEDS: Cholecalciferol (Vitamin D3) 25 MCG Tab PO SCH (09:25)
[2022-01-22] MEDS: Levothyroxine 25 MCG Tab PO SCH (09:25)
[2022-01-22] MEDS: Furosemide 20 MG Tab PO SCH (09:25)
[2022-01-22] MEDS: Fluticasone NASAL Spray 16 GM Bottle NASBOTH SCH (09:26)
[2022-01-22] MEDS: Timolol Maleate 0.5% Ophth Soln 5 ML Bottle EYEBOTH SCH ×2 (09:26→18:02)
[2022-01-22] MEDS: Dorzolamide 2% Ophth Soln 10 ML Bottle EYEBOTH SCH ×2 (09:29→18:03)
[2022-01-22] MEDS: Lisinopril 20 MG Tab PO SCH (09:35)
[2022-01-22] MEDS: Phenazopyridine 95 MG Tab PO SCH ×3 (09:45→18:05)
[2022-01-22] MEDS ORDERED: Piperacillin/Tazobactam 2.25 GM in Sodium Chloride 0.9% 100 ML IV SCH (12:15)
[2022-01-22] MEDS ORDERED: Potassium Bicarbonate/Cit Ac 20 MEQ Effervescent Tab PO ONE ×2 (12:20→19:00)
[2022-01-22] MEDS: Donepezil 5 MG Tab PO SCH (18:04)
[2022-01-22] MEDS: Sertraline 50 MG Tab PO SCH (20:49)
[2022-01-22] MEDS: Piperacillin/Tazobactam 2.25 GM in Sodium Chloride 0.9% 100 ML IV SCH (20:50)
[2022-01-22] MEDS: cefTRIAXone 1 GM in Sodium Chloride 0.9% 100 ML IV SCH (21:40)
[2022-01-23] MEDS: Piperacillin/Tazobactam 2.25 GM in Sodium Chloride 0.9% 100 ML IV SCH ×4 (01:38→19:56)
[2022-01-23] MEDS: Fluticasone NASAL Spray 16 GM Bottle NASBOTH SCH (07:20)
[2022-01-23] MEDS: Enoxaparin 30 MG/0.3 ML Syringe SUBCUT SCH (07:21)
[2022-01-23] MEDS: Levothyroxine 25 MCG Tab PO SCH (07:21)
[2022-01-23] MEDS: Cholecalciferol (Vitamin D3) 25 MCG Tab PO SCH (07:22)
[2022-01-23] MEDS: Potassium Chloride 10 MEQ Tab.ER PO SCH (07:22)
[2022-01-23] MEDS: Beta-Carotene (Vitamin A) w/Vitamin C & E plus Minerals Tab PO SCH (07:22)
[2022-01-23] MEDS: Furosemide 20 MG Tab PO SCH (07:22)
[2022-01-23] MEDS: Timolol Maleate 0.5% Ophth Soln 5 ML Bottle EYEBOTH SCH ×2 (07:23→18:05)
[2022-01-23] MEDS: Dorzolamide 2% Ophth Soln 10 ML Bottle EYEBOTH SCH ×2 (07:33→18:11)
[2022-01-23] MEDS: Lisinopril 20 MG Tab PO SCH (07:33)
[2022-01-23 08:24] LABS: ANION GAP 9.9 meq/L (7-15)
[2022-01-23] MEDS ORDERED: Magnesium Oxide 400 MG Tab PO ONE (12:00)
[2022-01-23] MEDS: Acetaminophen 650 MG Tab.ER PO PRN (18:04)
[2022-01-23] MEDS: Donepezil 5 MG Tab PO SCH (18:05)
[2022-01-23] MEDS: Sertraline 50 MG Tab PO SCH (19:56)
[2022-01-23] MEDS ORDERED: Potassium Bicarbonate/Cit Ac 20 MEQ Effervescent Tab PO ONE (20:40)
[2022-01-24] MEDS: Piperacillin/Tazobactam 2.25 GM in Sodium Chloride 0.9% 100 ML IV SCH ×3 (01:36→15:17)
[2022-01-24] MEDS: Lisinopril 20 MG Tab PO SCH (07:22)
[2022-01-24] MEDS: Beta-Carotene (Vitamin A) w/Vitamin C & E plus Minerals Tab PO SCH (07:23)
[2022-01-24] MEDS: Dorzolamide 2% Ophth Soln 10 ML Bottle EYEBOTH SCH (07:23)
[2022-01-24] MEDS: Potassium Chloride 10 MEQ Tab.ER PO SCH (07:24)
[2022-01-24] MEDS: Cholecalciferol (Vitamin D3) 25 MCG Tab PO SCH (07:24)
[2022-01-24] MEDS: Levothyroxine 25 MCG Tab PO SCH (07:24)
[2022-01-24] MEDS: Fluticasone NASAL Spray 16 GM Bottle NASBOTH SCH (07:25)
[2022-01-24] MEDS: Enoxaparin 30 MG/0.3 ML Syringe SUBCUT SCH (07:25)
[2022-01-24] MEDS: Furosemide 20 MG Tab PO SCH (07:25)
[2022-01-24] MEDS: Timolol Maleate 0.5% Ophth Soln 5 ML Bottle EYEBOTH SCH (07:26)
[2022-01-24 08:22] LABS: ANION GAP 12.1 meq/L (7-15)
[2022-01-24] MEDS ORDERED: Potassium Chloride 10 MEQ Tab.ER PO ONE (10:07)
[2022-01-24 14:22] VITALS: BP 145/90; PULSE 77
== END 2022-01-24 17:23 | disposition swing bed (61) | DRG 689 ==
LOC: LL.ED 21:08 → LL.MS 01-21 01:56
PROVIDERS: ADMIT Nurse Practitioner Family; ATTEND Nurse Practitioner Family
DX: N39.0 Urinary tract infection, site not specified (principal); A41.51 Sepsis due to Escherichia coli [E. coli]; R65.20 Severe sepsis without septic shock; R53.1 Weakness; N17.9 Acute kidney failure, unspecified; I13.0 Hypertensive heart and chronic kidney disease with heart failure and stage 1 through stage 4 chronic kidney disease, or unspecified chronic kidney disease; N18.9 Chronic kidney disease, unspecified; I42.9 Cardiomyopathy, unspecified; E87.6 Hypokalemia; E83.42 Hypomagnesemia; I25.10 Atherosclerotic heart disease of native coronary artery without angina pectoris; E03.9 Hypothyroidism, unspecified; Z66 Do not resuscitate; G30.9 Alzheimer's disease, unspecified; F02.80 Dementia in other diseases classified elsewhere, unspecified severity, without behavioral disturbance, psychotic disturbance, mood disturbance, and anxiety; F32.A Depression, unspecified; Z20.822 Contact with and (suspected) exposure to COVID-19; H54.7 Unspecified visual loss; H91.90 Unspecified hearing loss, unspecified ear; I11.0 Hypertensive heart disease with heart failure; I50.9 Heart failure, unspecified; E78.00 Pure hypercholesterolemia, unspecified; I73.9 Peripheral vascular disease, unspecified; J44.9 Chronic obstructive pulmonary disease, unspecified; K57.90 Diverticulosis of intestine, part unspecified, without perforation or abscess without bleeding; K21.9 Gastro-esophageal reflux disease without esophagitis; K44.9 Diaphragmatic hernia without obstruction or gangrene; K57.30 Diverticulosis of large intestine without perforation or abscess without bleeding; M19.90 Unspecified osteoarthritis, unspecified site; M54.9 Dorsalgia, unspecified; M54.2 Cervicalgia; G89.29 Other chronic pain; K80.20 Calculus of gallbladder without cholecystitis without obstruction; E06.3 Autoimmune thyroiditis; D72.818 Other decreased white blood cell count; L57.0 Actinic keratosis; M81.0 Age-related osteoporosis without current pathological fracture; F41.9 Anxiety disorder, unspecified; I49.9 Cardiac arrhythmia, unspecified; J84.10 Pulmonary fibrosis, unspecified; R32 Unspecified urinary incontinence; M41.9 Scoliosis, unspecified; Z90.710 Acquired absence of both cervix and uterus; Z90.49 Acquired absence of other specified parts of digestive tract; Z98.41 Cataract extraction status, right eye; Z98.42 Cataract extraction status, left eye; Z86.73 Personal history of transient ischemic attack (TIA), and cerebral infarction without residual deficits; Z79.899 Other long term (current) drug therapy; Z86.718 Personal history of other venous thrombosis and embolism; I25.2 Old myocardial infarction; Z87.01 Personal history of pneumonia (recurrent); Z86.711 Personal history of pulmonary embolism; Z79.01 Long term (current) use of anticoagulants; Z95.0 Presence of cardiac pacemaker; Z87.11 Personal history of peptic ulcer disease; Z79.890 Hormone replacement therapy
CPT/HCPCS: 0241U; 36415; 51798; 71046; 74176; 80048; 80053; 81001; 81003; 83605; 83735; 84145; 85025; 86140; 87040; 87077; 87086; 87088; 87186; 96365; 97162-GP; 97166-GO; 97530-GO; 99223; 99232; 99233; 99239; 99285-25; A9270-GY; C9113; J0696; J1650; J2405; J2543; J3475; J3480; J3490; J7120

== ENCOUNTER 2022-01-24 15:19 | Inpatient (IN) | payer MEDICARE, BC ==
[2022-01-24] MEDS ORDERED: Sodium Chloride 0.9% 10 ML Syringe FLUSH PRN (17:01)
[2022-01-24] MEDS ORDERED: Ondansetron 4 MG/2 ML SDV IVPUSH PRN (17:01)
[2022-01-24] MEDS: Magnesium Oxide 400 MG Tab PO SCH (19:24)
[2022-01-24] MEDS: Donepezil 5 MG Tab PO SCH (19:24)
[2022-01-24] MEDS: Timolol Maleate 0.5% Ophth Soln 5 ML Bottle EYEBOTH SCH (19:24)
[2022-01-24] MEDS: Dorzolamide 2% Ophth Soln 10 ML Bottle EYEBOTH SCH (19:27)
[2022-01-24] MEDS: Sertraline 50 MG Tab PO SCH (20:15)
[2022-01-24] MEDS: Cefdinir 300 MG Cap PO SCH (20:15)
[2022-01-25] MEDS: Beta-Carotene (Vitamin A) w/Vitamin C & E plus Minerals Tab PO SCH (07:44)
[2022-01-25] MEDS: Magnesium Oxide 400 MG Tab PO SCH (07:44)
[2022-01-25] MEDS: Cefdinir 300 MG Cap PO SCH ×2 (07:45→18:29)
[2022-01-25] MEDS: Potassium Chloride 10 MEQ Tab.ER PO SCH (07:46)
[2022-01-25] MEDS: Furosemide 20 MG Tab PO SCH (07:47)
[2022-01-25] MEDS: Lisinopril 20 MG Tab PO SCH (07:47)
[2022-01-25] MEDS: Cholecalciferol (Vitamin D3) 25 MCG Tab PO SCH (07:47)
[2022-01-25] MEDS: Levothyroxine 25 MCG Tab PO SCH (07:50)
[2022-01-25] MEDS: Fluticasone NASAL Spray 16 GM Bottle NASBOTH SCH (07:53)
[2022-01-25] MEDS: Timolol Maleate 0.5% Ophth Soln 5 ML Bottle EYEBOTH SCH ×2 (07:54→18:30)
[2022-01-25] MEDS: Dorzolamide 2% Ophth Soln 10 ML Bottle EYEBOTH SCH ×2 (07:54→18:30)
[2022-01-25] MEDS ORDERED: Potassium Chloride 10 MEQ Tab.ER PO SCH (08:00)
[2022-01-25] MEDS: Donepezil 5 MG Tab PO SCH (18:29)
[2022-01-25] MEDS: Sertraline 50 MG Tab PO SCH (20:15)
[2022-01-26] MEDS: Potassium Chloride 10 MEQ Tab.ER PO SCH (07:16)
[2022-01-26] MEDS: Beta-Carotene (Vitamin A) w/Vitamin C & E plus Minerals Tab PO SCH (07:17)
[2022-01-26] MEDS: Cefdinir 300 MG Cap PO SCH ×2 (07:17→17:46)
[2022-01-26] MEDS: Furosemide 20 MG Tab PO SCH (07:18)
[2022-01-26] MEDS: Levothyroxine 25 MCG Tab PO SCH (07:18)
[2022-01-26] MEDS: Magnesium Oxide 400 MG Tab PO SCH (07:18)
[2022-01-26] MEDS: Cholecalciferol (Vitamin D3) 25 MCG Tab PO SCH (07:18)
[2022-01-26] MEDS: Lisinopril 20 MG Tab PO SCH (07:18)
[2022-01-26] MEDS: Timolol Maleate 0.5% Ophth Soln 5 ML Bottle EYEBOTH SCH ×2 (07:19→17:45)
[2022-01-26] MEDS: Dorzolamide 2% Ophth Soln 10 ML Bottle EYEBOTH SCH ×2 (07:20→17:45)
[2022-01-26] MEDS: Fluticasone NASAL Spray 16 GM Bottle NASBOTH SCH (07:20)
[2022-01-26 09:43] LABS: CHLORIDE,CL 105 mmol/L (98-107); SODIUM,NA 142 mmol/L (136-145)
[2022-01-26] MEDS: Donepezil 5 MG Tab PO SCH (17:46)
[2022-01-26] MEDS: Sertraline 50 MG Tab PO SCH (20:18)
[2022-01-26] MEDS: Ondansetron 4 MG Tab.DIS PO PRN (21:31)
[2022-01-27] MEDS: Dorzolamide 2% Ophth Soln 10 ML Bottle EYEBOTH SCH ×2 (07:26→17:12)
[2022-01-27] MEDS: Timolol Maleate 0.5% Ophth Soln 5 ML Bottle EYEBOTH SCH ×2 (07:27→17:12)
[2022-01-27] MEDS: Fluticasone NASAL Spray 16 GM Bottle NASBOTH SCH (07:28)
[2022-01-27] MEDS: Potassium Chloride 10 MEQ Tab.ER PO SCH (07:28)
[2022-01-27] MEDS: Magnesium Chloride 64 MG Tab.ER PO SCH (07:29)
[2022-01-27] MEDS: Lisinopril 20 MG Tab PO SCH (07:29)
[2022-01-27] MEDS: Cefdinir 300 MG Cap PO SCH ×2 (07:29→17:13)
[2022-01-27] MEDS: Beta-Carotene (Vitamin A) w/Vitamin C & E plus Minerals Tab PO SCH (07:29)
[2022-01-27] MEDS: Furosemide 20 MG Tab PO SCH (07:30)
[2022-01-27] MEDS: Levothyroxine 25 MCG Tab PO SCH (07:30)
[2022-01-27] MEDS: Cholecalciferol (Vitamin D3) 25 MCG Tab PO SCH (07:30)
[2022-01-27] MEDS: Donepezil 5 MG Tab PO SCH (17:13)
[2022-01-27] MEDS: Acetaminophen 650 MG Tab.ER PO PRN (19:27)
[2022-01-27] MEDS: Sertraline 50 MG Tab PO SCH (19:28)
[2022-01-28] MEDS: Acetaminophen 650 MG Tab.ER PO PRN ×2 (06:16→19:37)
[2022-01-28] MEDS: Timolol Maleate 0.5% Ophth Soln 5 ML Bottle EYEBOTH SCH ×2 (07:51→18:05)
[2022-01-28] MEDS: Dorzolamide 2% Ophth Soln 10 ML Bottle EYEBOTH SCH ×2 (07:51→18:05)
[2022-01-28] MEDS: Beta-Carotene (Vitamin A) w/Vitamin C & E plus Minerals Tab PO SCH (07:51)
[2022-01-28] MEDS: Potassium Chloride 10 MEQ Tab.ER PO SCH (07:52)
[2022-01-28] MEDS: Magnesium Chloride 64 MG Tab.ER PO SCH (07:53)
[2022-01-28] MEDS: Lisinopril 20 MG Tab PO SCH (07:53)
[2022-01-28] MEDS: Levothyroxine 25 MCG Tab PO SCH (07:54)
[2022-01-28] MEDS: Furosemide 20 MG Tab PO SCH (07:54)
[2022-01-28] MEDS: Cholecalciferol (Vitamin D3) 25 MCG Tab PO SCH (07:54)
[2022-01-28] MEDS: Cefdinir 300 MG Cap PO SCH ×2 (07:54→18:06)
[2022-01-28] MEDS: Fluticasone NASAL Spray 16 GM Bottle NASBOTH SCH (07:55)
[2022-01-28] MEDS: Donepezil 5 MG Tab PO SCH (18:06)
[2022-01-28] MEDS: Sertraline 50 MG Tab PO SCH (19:37)
[2022-01-29] MEDS: Beta-Carotene (Vitamin A) w/Vitamin C & E plus Minerals Tab PO SCH (07:20)
[2022-01-29] MEDS: Cholecalciferol (Vitamin D3) 25 MCG Tab PO SCH (07:20)
[2022-01-29] MEDS: Potassium Chloride 10 MEQ Tab.ER PO SCH (07:21)
[2022-01-29] MEDS: Magnesium Chloride 64 MG Tab.ER PO SCH (07:21)
[2022-01-29] MEDS: Lisinopril 20 MG Tab PO SCH (07:22)
[2022-01-29] MEDS: Levothyroxine 25 MCG Tab PO SCH (07:22)
[2022-01-29] MEDS: Furosemide 20 MG Tab PO SCH (07:22)
[2022-01-29] MEDS: Fluticasone NASAL Spray 16 GM Bottle NASBOTH SCH (07:23)
[2022-01-29] MEDS: Timolol Maleate 0.5% Ophth Soln 5 ML Bottle EYEBOTH SCH ×2 (07:23→17:23)
[2022-01-29] MEDS: Dorzolamide 2% Ophth Soln 10 ML Bottle EYEBOTH SCH ×2 (07:24→17:23)
[2022-01-29] MEDS ORDERED: Phenazopyridine 95 MG Tab PO SCH (12:30)
[2022-01-29] MEDS ORDERED: Tamsulosin 0.4 MG Cap.ER PO ONE (13:57)
[2022-01-29] MEDS: Donepezil 5 MG Tab PO SCH (17:24)
[2022-01-29] MEDS: Sertraline 50 MG Tab PO SCH (19:36)
[2022-01-29] MEDS: Acetaminophen 650 MG Tab.ER PO PRN (19:37)
[2022-01-29] MEDS: Ondansetron 4 MG Tab.DIS PO PRN (20:55)
[2022-01-30] MEDS: Acetaminophen 650 MG Tab.ER PO PRN ×2 (10:00→17:43)
[2022-01-30] MEDS: Potassium Chloride 10 MEQ Tab.ER PO SCH (10:03)
[2022-01-30] MEDS: Levothyroxine 25 MCG Tab PO SCH (10:03)
[2022-01-30] MEDS: Lisinopril 20 MG Tab PO SCH (10:03)
[2022-01-30] MEDS: Dorzolamide 2% Ophth Soln 10 ML Bottle EYEBOTH SCH ×2 (10:05→17:42)
[2022-01-30] MEDS: Fluticasone NASAL Spray 16 GM Bottle NASBOTH SCH (10:05)
[2022-01-30] MEDS: Beta-Carotene (Vitamin A) w/Vitamin C & E plus Minerals Tab PO SCH (10:06)
[2022-01-30] MEDS: Timolol Maleate 0.5% Ophth Soln 5 ML Bottle EYEBOTH SCH ×2 (10:06→17:42)
[2022-01-30] MEDS: Furosemide 20 MG Tab PO SCH (10:07)
[2022-01-30] MEDS: Cholecalciferol (Vitamin D3) 25 MCG Tab PO SCH (10:07)
[2022-01-30] MEDS: Magnesium Chloride 64 MG Tab.ER PO SCH (10:07)
[2022-01-30] MEDS: Donepezil 5 MG Tab PO SCH (17:41)
[2022-01-30] MEDS: Sertraline 50 MG Tab PO SCH (19:37)
[2022-01-31] MEDS: Timolol Maleate 0.5% Ophth Soln 5 ML Bottle EYEBOTH SCH ×2 (07:24→17:25)
[2022-01-31] MEDS: Fluticasone NASAL Spray 16 GM Bottle NASBOTH SCH (07:24)
[2022-01-31] MEDS: Dorzolamide 2% Ophth Soln 10 ML Bottle EYEBOTH SCH ×2 (07:24→17:25)
[2022-01-31] MEDS: Potassium Chloride 10 MEQ Tab.ER PO SCH (07:24)
[2022-01-31] MEDS: Furosemide 20 MG Tab PO SCH (07:25)
[2022-01-31] MEDS: Beta-Carotene (Vitamin A) w/Vitamin C & E plus Minerals Tab PO SCH (07:25)
[2022-01-31] MEDS: Magnesium Chloride 64 MG Tab.ER PO SCH (07:26)
[2022-01-31] MEDS: Cholecalciferol (Vitamin D3) 25 MCG Tab PO SCH (07:26)
[2022-01-31] MEDS: Levothyroxine 25 MCG Tab PO SCH (07:26)
[2022-01-31] MEDS: Lisinopril 20 MG Tab PO SCH (07:26)
[2022-01-31] MEDS: Donepezil 5 MG Tab PO SCH (17:25)
[2022-01-31] MEDS: Sertraline 50 MG Tab PO SCH (20:12)
[2022-01-31] MEDS: Acetaminophen 650 MG Tab.ER PO PRN (20:13)
[2022-01-31] MEDS: Mineral Oil/Petrolatum/Phenylephrine/Shark Liver Oil Oint 57 GM Tube RECTAL PRN (20:49)
[2022-02-01 07:07] VITALS: BP 132/73; PULSE 75
[2022-02-01] MEDS: Timolol Maleate 0.5% Ophth Soln 5 ML Bottle EYEBOTH SCH (08:11)
[2022-02-01] MEDS: Fluticasone NASAL Spray 16 GM Bottle NASBOTH SCH (08:12)
[2022-02-01] MEDS: Beta-Carotene (Vitamin A) w/Vitamin C & E plus Minerals Tab PO SCH (08:12)
[2022-02-01] MEDS: Potassium Chloride 10 MEQ Tab.ER PO SCH (08:12)
[2022-02-01] MEDS: Acetaminophen 650 MG Tab.ER PO PRN (08:13)
[2022-02-01] MEDS: Magnesium Chloride 64 MG Tab.ER PO SCH (08:13)
[2022-02-01] MEDS: Furosemide 20 MG Tab PO SCH (08:13)
[2022-02-01] MEDS: Cholecalciferol (Vitamin D3) 25 MCG Tab PO SCH (08:14)
[2022-02-01] MEDS: Levothyroxine 25 MCG Tab PO SCH (08:14)
[2022-02-01] MEDS: Lisinopril 20 MG Tab PO SCH (08:15)
[2022-02-01] MEDS: Dorzolamide 2% Ophth Soln 10 ML Bottle EYEBOTH SCH (08:20)
[2022-02-01] MEDS: Mineral Oil/Petrolatum/Phenylephrine/Shark Liver Oil Oint 57 GM Tube RECTAL PRN (08:23)
[2022-02-01] MEDS ORDERED: Lidocaine 2% with EPINEPHrine 1:100,000 20 ML MDV ONE (09:15)
[2022-02-01] MEDS ORDERED: Acetaminophen 650 MG Tab.ER PO PRN (09:20)
[2022-02-01] MEDS ORDERED: Mineral Oil/Petrolatum/Phenylephrine/Shark Liver Oil Oint 57 GM Tube RECTAL PRN (09:20)
[2022-02-01] MEDS ORDERED: Ondansetron 4 MG Tab.DIS PO PRN (09:20)
[2022-02-01] MEDS ORDERED: DORZOLAMIDE EYEBOTH SCH ×2 (18:00)
[2022-02-01] MEDS ORDERED: Donepezil 5 MG Tab PO SCH (18:00)
[2022-02-01] MEDS ORDERED: TIMOLOL EYEBOTH SCH (18:00)
[2022-02-01] MEDS ORDERED: [UNRECOGNIZED DRUG - OTHER] EYEBOTH SCH (18:00)
[2022-02-01] MEDS ORDERED: Non-Formulary Medication 1 Each (Sertraline [Zoloft] 100 MG Tablet) PO SCH (20:00)
[2022-02-02] MEDS ORDERED: Fluticasone NASAL Spray 16 GM Bottle NASBOTH SCH (08:00)
[2022-02-02] MEDS ORDERED: Magnesium Chloride 64 MG Tab.ER PO SCH (08:00)
[2022-02-02] MEDS ORDERED: Lisinopril 20 MG Tab PO SCH (08:00)
[2022-02-02] MEDS ORDERED: Furosemide 20 MG Tab PO SCH (08:00)
[2022-02-02] MEDS ORDERED: Non-Formulary Medication 1 Each (Cholecalciferol (Vitamin D3) [Vitamin D3] 1,000 UNIT Caps PO SCH (08:00)
[2022-02-02] MEDS ORDERED: Beta-Carotene (Vitamin A) w/Vitamin C & E plus Minerals Tab PO SCH (08:00)
[2022-02-02] MEDS ORDERED: Levothyroxine 25 MCG Tab PO SCH (08:00)
[2022-02-02] MEDS ORDERED: Potassium Chloride 10 MEQ Tab.ER PO SCH (08:00)
== END 2022-02-01 10:40 | DRG 689 ==
LOC: LL.MS 17:31
PROVIDERS: ADMIT Nurse Practitioner Family; ATTEND Hospitalist
DX: N39.0 Urinary tract infection, site not specified (principal); I50.43 Acute on chronic combined systolic (congestive) and diastolic (congestive) heart failure; N17.9 Acute kidney failure, unspecified; E83.42 Hypomagnesemia; R53.1 Weakness; G30.9 Alzheimer's disease, unspecified; F02.80 Dementia in other diseases classified elsewhere, unspecified severity, without behavioral disturbance, psychotic disturbance, mood disturbance, and anxiety; E87.6 Hypokalemia; I25.10 Atherosclerotic heart disease of native coronary artery without angina pectoris; R31.9 Hematuria, unspecified; Z66 Do not resuscitate; E03.9 Hypothyroidism, unspecified; B96.20 Unspecified Escherichia coli [E. coli] as the cause of diseases classified elsewhere; Z86.73 Personal history of transient ischemic attack (TIA), and cerebral infarction without residual deficits; Z79.899 Other long term (current) drug therapy; Z79.890 Hormone replacement therapy
CPT/HCPCS: 36415; 51798; 80048; 81003; 83735; 85025; 97110-GP; 97162-GP; 97165-GO; 97530-GO; 97530-GP; 97535-GO; 99306; 99307; A9270-GY; U0002

== ENCOUNTER 2023-06-06 09:41 | Observation (INO) | payer MEDICARE, BC ==
[2023-06-06] MEDS ORDERED: Sodium Chloride 0.9% 10 ML Syringe FLUSH PRN ×2 (10:09→12:44)
[2023-06-06 10:24] LABS: BASOPHILS ABSOLUTE AUTO 0.03 K/uL (0.00-0.20); BASOPHILS PERCENT AUTO 0.6 % (0.0-2.0); EOSINOPHILS ABSOLUTE AUTO 0.25 K/uL (0.00-0.50); EOSINOPHILS PERCENT AUTO 4.8 % (0.0-5.0); HEMATOCRIT 42.2 % (34.0-46.0); HEMOGLOBIN 13.1 g/dL (11.7-15.5); LYMPHOCYTES ABSOLUTE AUTO 1.27 K/uL (0.50-3.50); LYMPHOCYTES PERCENT AUTO 24.3 % (10.0-50.0); MEAN CORPUSCULAR VOLUME 96.8 fL (84.0-98.0); MONOCYTES PERCENT AUTO 9.6 % (2.0-14.0); NEUTROPHILS ABSOLUTE AUTO 3.17 K/uL (1.40-7.00); NEUTROPHILS PERCENT AUTO 60.7 % (45.0-80.0); PLATELET COUNT,PLT 132 K/uL (150-350); RED BLOOD CELL COUNT 4.36 M/uL (3.77-5.09); RED CELL DISTRIBUTION WIDTH 14.9 % (11.2-14.1); WHITE BLOOD CELL COUNT,WBC 5.2 K/uL (4.0-10.2)
[2023-06-06 10:39] LABS: PROTHROMBIN TIME 9.9 SEC (9.0-11.1)
[2023-06-06 10:42] LABS: ALBUMIN 3.6 g/dL (3.4-5.0); ANION GAP 7.3 meq/L (7-15); BILIRUBIN TOTAL 0.4 mg/dL (0.2-1.0); CALCIUM 9.6 mg/dL (8.5-10.1); CARBON DIOXIDE,CO2 27.7 mmol/L (21.0-32.0); CREATININE 1.62 mg/dL (0.51-1.17); EST CRCL DRUG DOSING (CG) 20.63 mL/min; MAGNESIUM 1.8 mg/dL (1.8-2.4); PHOSPHORUS 3.3 mg/dL (2.6-4.7); PROTEIN TOTAL,TP 7.6 g/dL (6.4-8.2)
[2023-06-06] MEDS ORDERED: Ondansetron 4 MG Tab.DIS PO PRN (12:44)
[2023-06-06] MEDS ORDERED: Sodium Chloride 0.9% 1,000 ML IV ONE (12:44)
[2023-06-06] MEDS ORDERED: Acetaminophen 650 MG Tab.ER PO PRN (12:51)
[2023-06-06] MEDS ORDERED: Non-Formulary Medication 1 Each (Fexofenadine Hcl [Allegra Allergy] 60 MG Tablet) PO PRN (12:51)
[2023-06-06] MEDS ORDERED: Sodium Chloride 0.65% Nasal Spray 45 ML Bottle NASBOTH PRN (12:51)
[2023-06-06] MEDS ORDERED: Fluticasone NASAL Spray 16 GM Bottle NASBOTH PRN (12:51)
[2023-06-06] MEDS: Metoprolol Succinate 25 MG Tab.ER PO SCH (13:44)
[2023-06-06] MEDS: Levothyroxine 25 MCG Tab PO SCH (13:44)
[2023-06-06] MEDS: Lisinopril 20 MG Tab PO SCH (13:44)
[2023-06-06] MEDS ORDERED: Sodium Chloride 0.9% 1,000 ML IV SCH (16:00)
[2023-06-06] MEDS: TIMOLOL EYEBOTH SCH (17:54)
[2023-06-06] MEDS: Calcium Carbonate 750 MG Tab.Chew PO SCH (17:54)
[2023-06-06] MEDS: Memantine 10 MG Tab PO SCH (17:54)
[2023-06-06] MEDS: DORZOLAMIDE EYEBOTH SCH (17:54)
[2023-06-06] MEDS: SYSTANE EYE DROPS EYEBOTH SCH (19:49)
[2023-06-06] MEDS ORDERED: Latanoprost 0.005% Ophth Soln 2.5 ML Bottle EYELF SCH (20:00)
[2023-06-06] MEDS ORDERED: Sertraline 50 MG Tab PO SCH (20:00)
[2023-06-07] MEDS: TIMOLOL EYEBOTH SCH ×2 (07:21→18:27)
[2023-06-07] MEDS: DORZOLAMIDE EYEBOTH SCH ×2 (07:21→18:27)
[2023-06-07] MEDS: Levothyroxine 25 MCG Tab PO SCH (07:22)
[2023-06-07] MEDS: Metoprolol Succinate 25 MG Tab.ER PO SCH (07:22)
[2023-06-07] MEDS: Memantine 10 MG Tab PO SCH ×2 (07:22→18:26)
[2023-06-07] MEDS: Calcium Carbonate 750 MG Tab.Chew PO SCH ×2 (07:22→18:26)
[2023-06-07] MEDS: Lisinopril 20 MG Tab PO SCH (07:22)
[2023-06-07] MEDS: SYSTANE EYE DROPS EYEBOTH SCH (07:23)
[2023-06-07 07:52] LABS: CALCIUM 8.9 mg/dL (8.5-10.1); CARBON DIOXIDE,CO2 22.8 mmol/L (21.0-32.0); CREATININE 1.3 mg/dL (0.51-1.17); EST CRCL DRUG DOSING (CG) 30.18 mL/min; POTASSIUM,K 3.8 mmol/L (3.5-5.1)
[2023-06-07] MEDS ORDERED: Potassium Chloride 10 MEQ Tab.ER PO SCH (08:00)
[2023-06-07] MEDS ORDERED: Furosemide 20 MG Tab PO SCH (08:00)
[2023-06-07] MEDS ORDERED: Sodium Chloride 0.9% 1,000 ML IV SCH (12:45)
[2023-06-07 13:36] LABS: APPEARANCE,URINE SLIGHTLY CLOUDY; BILIRUBIN,URINE NEGATIVE (NEGATIVE); COLOR,URINE LIGHT YELLOW; GLUCOSE,URINE NEGATIVE (NEGATIVE); KETONES,URINE NEGATIVE (NEGATIVE); LEUKOCYTE ESTERASE,URINE TRACE (NEGATIVE); NITRITE,URINE NEGATIVE (NEGATIVE); OCCULT BLOOD,URINE TRACE-LYSED (NEGATIVE); PH,URINE 5.5 (5.0-9.0); PROTEIN,URINE NEGATIVE (NEGATIVE); UROBILINOGEN,URINE 0.2 E.U./dL (0.2-1.0)
[2023-06-07] MEDS ORDERED: Aspirin 81 MG Tab.Chew PO ONE (13:44)
[2023-06-07] MEDS ORDERED: Clopidogrel 75 MG Tab PO ONE (13:44)
[2023-06-07 13:54] LABS: BACTERIA,URINE MANY /HPF (NONE TO FEW); EPITHELIAL CELLS,URINE FEW /LPF; RBC,URINE 0-5 /HPF
[2023-06-07 18:20] VITALS: BP 147/85; PULSE 66
[2023-06-08] MEDS ORDERED: Famotidine 20 MG Tab PO SCH (08:00)
== END 2023-06-07 18:35 ==
LOC: LL.ED 09:41 → LL.MS 11:51
PROVIDERS: ADMIT Physician Assistant; ATTEND Physician Assistant
DX: R42 Dizziness and giddiness (principal); N17.9 Acute kidney failure, unspecified; E86.0 Dehydration; R77.8 Other specified abnormalities of plasma proteins; I13.0 Hypertensive heart and chronic kidney disease with heart failure and stage 1 through stage 4 chronic kidney disease, or unspecified chronic kidney disease; N18.9 Chronic kidney disease, unspecified; I50.9 Heart failure, unspecified; I25.10 Atherosclerotic heart disease of native coronary artery without angina pectoris; E78.00 Pure hypercholesterolemia, unspecified; I21.4 Non-ST elevation (NSTEMI) myocardial infarction; K21.9 Gastro-esophageal reflux disease without esophagitis; G89.29 Other chronic pain; M54.9 Dorsalgia, unspecified; I42.9 Cardiomyopathy, unspecified; J44.9 Chronic obstructive pulmonary disease, unspecified; E03.9 Hypothyroidism, unspecified; I73.9 Peripheral vascular disease, unspecified; Z79.890 Hormone replacement therapy; Z79.899 Other long term (current) drug therapy; Z86.73 Personal history of transient ischemic attack (TIA), and cerebral infarction without residual deficits
CPT/HCPCS: 36415; 80048; 80053; 81001; 83735; 83880; 84100; 84443; 84484; 84520; 85025; 85610; 87086; 87088; 87186; 93005; 93010; 96360; 96361; 99223; 99239; 99285; A9270-GY; G0378; J3490; J7030

== ENCOUNTER 2023-07-23 11:20 | Emergency (ER) | payer MEDICARE, BC ==
[2023-07-23 12:03] LABS: BASOPHILS ABSOLUTE AUTO 0.03 K/uL (0.00-0.20); BASOPHILS PERCENT AUTO 0.7 % (0.0-2.0); EOSINOPHILS ABSOLUTE AUTO 0.23 K/uL (0.00-0.50); EOSINOPHILS PERCENT AUTO 5.3 % (0.0-5.0); HEMATOCRIT 38.5 % (34.0-46.0); LYMPHOCYTES ABSOLUTE AUTO 0.96 K/uL (0.50-3.50); LYMPHOCYTES PERCENT AUTO 21.9 % (10.0-50.0); MEAN CORPUSCULAR HEMOGLOBIN 30.2 pg (28.2-33.3); MEAN CORPUSCULAR HGB CONC 31.2 g/dL (31.7-36.0); NEUTROPHILS ABSOLUTE AUTO 2.46 K/uL (1.40-7.00); NEUTROPHILS PERCENT AUTO 56.1 % (45.0-80.0); PLATELET COUNT,PLT 122 K/uL (150-350); RED BLOOD CELL COUNT 3.97 M/uL (3.77-5.09); RED CELL DISTRIBUTION WIDTH 14.9 % (11.2-14.1); WHITE BLOOD CELL COUNT,WBC 4.4 K/uL (4.0-10.2)
[2023-07-23 12:21] LABS: CORONAVIRUS COVID-19 NAA NEGATIVE (NEGATIVE); INFLUENZA A NAA NEGATIVE (NEGATIVE); INFLUENZA B NAA NEGATIVE (NEGATIVE); RESPIRATORY SYNCYTIAL VIR NAA NEGATIVE (NEGATIVE)
[2023-07-23 12:26] LABS: ALBUMIN 3.4 g/dL (3.4-5.0); BILIRUBIN TOTAL 0.6 mg/dL (0.2-1.0); CARBON DIOXIDE,CO2 26.4 mmol/L (21.0-32.0); POTASSIUM,K 3.1 mmol/L (3.5-5.1)
[2023-07-23 12:33] LABS: ANION GAP 13.7 meq/L (7-15); CALCIUM 9.2 mg/dL (8.5-10.1); CREATININE 1.26 mg/dL (0.51-1.17); EST CRCL DRUG DOSING (CG) 30.53 mL/min; MAGNESIUM 1.7 mg/dL (1.8-2.4)
[2023-07-23] MEDS ORDERED: Potassium Chloride 10 MEQ Tab.ER PO ONE ×2 (12:38→14:51)
[2023-07-23] MEDS ORDERED: Sodium Chloride 0.9% 10 ML Syringe FLUSH PRN (12:47)
[2023-07-23] MEDS ORDERED: Sodium Chloride 0.9% 500 ML IV SCH (13:00)
[2023-07-23 13:35] LABS: BILIRUBIN,URINE NEGATIVE (NEGATIVE); COLOR,URINE LIGHT YELLOW; GLUCOSE,URINE NEGATIVE (NEGATIVE); KETONES,URINE NEGATIVE (NEGATIVE); NITRITE,URINE NEGATIVE (NEGATIVE); PH,URINE 8.5 (5.0-9.0); PROTEIN,URINE 30 mg/dL (NEGATIVE); UROBILINOGEN,URINE 0.2 E.U./dL (0.2-1.0)
[2023-07-23 13:45] LABS: APPEARANCE,URINE TURBID; LEUKOCYTE ESTERASE,URINE TRACE (NEGATIVE); OCCULT BLOOD,URINE NEGATIVE (NEGATIVE)
[2023-07-23 13:47] LABS: BACTERIA,URINE MANY /HPF (NONE TO FEW); RBC,URINE 0-5 /HPF
[2023-07-23 16:04] VITALS: PULSE 62
[2023-07-23 16:05] VITALS: BP 151/78
== END 2023-07-23 15:15 | disposition home or self-care (01) ==
LOC: LL.ED 11:20
DX: R06.02 Shortness of breath (principal); Z20.822 Contact with and (suspected) exposure to COVID-19
CPT/HCPCS: 0241U; 36415; 71046; 80053; 81001; 81003; 83605; 83735; 83880; 84484; 85025; 85379; 87086; 87088; 87186; 93005; 93010; 96360; 99284; 99285-25; A9270-GY; J7040

== ENCOUNTER 2023-07-31 11:16 | Emergency (ER) | payer MEDICARE, BC ==
[2023-07-31] MEDS ORDERED: Sodium Chloride 0.9% 10 ML Syringe FLUSH PRN (11:48)
[2023-07-31 11:54] LABS: BASOPHILS ABSOLUTE AUTO 0.02 K/uL (0.00-0.20); BASOPHILS PERCENT AUTO 0.4 % (0.0-2.0); EOSINOPHILS ABSOLUTE AUTO 0.25 K/uL (0.00-0.50); EOSINOPHILS PERCENT AUTO 5.1 % (0.0-5.0); HEMATOCRIT 40.2 % (34.0-46.0); HEMOGLOBIN 12.6 g/dL (11.7-15.5); LYMPHOCYTES ABSOLUTE AUTO 1.18 K/uL (0.50-3.50); MEAN CORPUSCULAR HEMOGLOBIN 30.4 pg (28.2-33.3); MEAN CORPUSCULAR HGB CONC 31.3 g/dL (31.7-36.0); MEAN CORPUSCULAR VOLUME 97.1 fL (84.0-98.0); MONOCYTES ABSOLUTE AUTO 0.51 K/uL (0.00-1.00); MONOCYTES PERCENT AUTO 10.4 % (2.0-14.0); NEUTROPHILS ABSOLUTE AUTO 2.96 K/uL (1.40-7.00); NEUTROPHILS PERCENT AUTO 60.1 % (45.0-80.0); PLATELET COUNT,PLT 154 K/uL (150-350); RED BLOOD CELL COUNT 4.14 M/uL (3.77-5.09); RED CELL DISTRIBUTION WIDTH 15.1 % (11.2-14.1); WHITE BLOOD CELL COUNT,WBC 4.9 K/uL (4.0-10.2)
[2023-07-31] MEDS ORDERED: Labetalol 20 MG/4 ML Syringe IVPUSH ONE (12:02)
[2023-07-31 12:12] LABS: ALANINE AMINOTRANSFERASE,ALT 9 U/L (12-78); ALBUMIN 3.8 g/dL (3.4-5.0); ALKALINE PHOSPHATASE 89 IU/L (46-116); ASPARTATE AMNIOTRANSFERASE,AST 25 U/L (15-37); BILIRUBIN TOTAL 0.7 mg/dL (0.2-1.0); BLOOD UREA NITROGEN,BUN 18 mg/dL (7-18); CALCIUM 9.8 mg/dL (8.5-10.1); CARBON DIOXIDE,CO2 26.4 mmol/L (21.0-32.0); CHLORIDE,CL 110 mmol/L (98-107); CREATININE 1.18 mg/dL (0.51-1.17); GLUCOSE RANDOM 105 mg/dL (70-99); MAGNESIUM 1.7 mg/dL (1.8-2.4); POTASSIUM,K 3.5 mmol/L (3.5-5.1); PROTEIN TOTAL,TP 7.7 g/dL (6.4-8.2); SODIUM,NA 145 mmol/L (136-145)
[2023-07-31 12:18] VITALS: BP 153/69; PULSE 70
[2023-07-31 12:18] LABS: ANION GAP 12.1 meq/L (7-15); ESTIMATED GFR 44 mL/min (>=60)
== END 2023-07-31 13:10 | disposition home or self-care (01) ==
LOC: LL.ED 11:16
DX: G30.9 Alzheimer's disease, unspecified (principal); F02.80 Dementia in other diseases classified elsewhere, unspecified severity, without behavioral disturbance, psychotic disturbance, mood disturbance, and anxiety; R53.1 Weakness; I25.10 Atherosclerotic heart disease of native coronary artery without angina pectoris; I12.9 Hypertensive chronic kidney disease with stage 1 through stage 4 chronic kidney disease, or unspecified chronic kidney disease; N18.9 Chronic kidney disease, unspecified; I50.9 Heart failure, unspecified; E78.00 Pure hypercholesterolemia, unspecified; I25.2 Old myocardial infarction; J44.9 Chronic obstructive pulmonary disease, unspecified; K21.9 Gastro-esophageal reflux disease without esophagitis; E03.9 Hypothyroidism, unspecified; Z79.899 Other long term (current) drug therapy; Z79.01 Long term (current) use of anticoagulants; Z79.02 Long term (current) use of antithrombotics/antiplatelets
CPT/HCPCS: 36415; 70450; 80053; 82140; 83735; 85025; 96374; 99284; 99285-25; J3490